=== PATIENT | male | born 1935 | race Caucasian/White ===

== ENCOUNTER 2019-10-29 15:14 | Observation (INO) | payer OTHER ==
--- NOTE | 2019-10-29 15:25 | PDOC ---
Rapid Medical Evaluation Chief Complaint: Syncope/Near Syncope Time Seen by Provider: 10/29/19 15:21 Medical Evaluation: Allergies Allergy/AdvReac Type Severity Reaction Status Date / Time No Known Allergies Allergy Verified 10/29/19 15:22 Vital Signs Temp Pulse Resp BP Pulse Ox 98 F 54 L 18 155/70 99 10/29/19 15:20 10/29/19 15:20 10/29/19 15:20 10/29/19 15:20 10/29/19 15:20 10/29/19 15:24 I have performed a brief in-person evaluation of this patient. The patient presents with a chief complaint of:syncope and hit head. Asx now. No CP Pertinent physical exam findings:stable, alert, NAD I have ordered the following:ekg/labs The patient will proceed to the ED for further evaluation. Discharge Disposition - Diagnosis Syncope Qualifiers: Syncope type: unspecified Qualified Code(s): R55 - Syncope and collapse - Referrals - Patient Instructions - Post Discharge Activity
[2019-10-29 15:47] LABS: BASO % 0.7 % (0-2.0); EOS % 1.5 % (0-4.5); HEMATOCRIT 35.2 % (35.4-49); HEMOGLOBIN 11.2 GM/dL (11.7-16.9); LYMPH % 16.8 % (8-40); MCH 26.5 pg (25.7-33.7); MCHC 31.9 g/dl (32.0-35.9); MEAN CELL VOLUME 82.9 fl (80-96); MONO % 5.3 % (3.8-10.2); NEUT % 75.7 % (42.8-82.8); PLATELET COUNT 162 K/MM3 (134-434); RBC 4.25 M/mm3 (4.00-5.60); RDW 16.4 % (11.9-15.9); WHITE BLOOD COUNT 8.4 K/mm3 (4.0-10.0)
[2019-10-29 16:31] LABS: ALBUMIN 3.8 g/dl (3.4-5.0); ALK PHOS 88 U/L (45-117); ANION GAP 7 MMOL/L (8-16); BILIRUBIN,TOTAL 0.7 mg/dL (0.2-1); BLOOD UREA NITROGEN 16.7 mg/dL (7-18); CALCIUM 9.4 mg/dL (8.5-10.1); CHLORIDE 113 mmol/L (98-107); CO2 23 mmol/L (21-32); CREATININE 1.3 mg/dL (0.55-1.3); GLUCOSE,RANDOM 110 mg/dL (74-106); SGOT/AST 10 U/L (15-37); SGPT/ALT 15 U/L (13-61); SODIUM 143 mmol/L (136-145); TOT PROT 7.1 g/dl (6.4-8.2)
[2019-10-29 16:32] LABS: EPI CELLS 19 /uL (0-25.1); HYALINE CASTS 8 /uL (0-3.1); URINE APPEARANCE CLEAR; URINE BACTERIA 126 /uL (0-1359); URINE BILIRUBIN 1+ (NEGATIVE); URINE COLOR DK YELLOW; URINE GLUCOSE (UA) NEGATIVE (NEGATIVE); URINE KETONE TRACE (NEGATIVE); URINE LEUK ESTERASE NEGATIVE (NEGATIVE); URINE NITRITE NEGATIVE (NEGATIVE); URINE PROTEIN 2+ (NEGATIVE); URINE WBC 17 /uL (0-25.8)
--- NOTE | 2019-10-29 17:00 | PDOC ---
Attending Attestation - Resident Resident Name: Mariam Cota - ED Attending Attestation I have performed the following: I have examined & evaluated the patient, The case was reviewed & discussed with the resident, I agree w/resident's findings & plan, Exceptions are as noted - HPI HPI: 10/29/19 16:57 84yo male with hx of cad s/p stent placement at [place] presents for eval of a witness syncopal episode today. Pt was standing up from his cough when he passed out and landed back on the couch. Pt did hit his head on the couch, on asa. Pt denies feeling lightheaded or dizzy. pt denies cp/sob. pt denies palpitations. Pt denies abd pain. No n/v/d. Per the daughter, pt has become more forgetful recently and did have an episode of urinary incontinence while walking outside about 2 weeks ago. Denies dysuria or hematuria. Denies all other complaints. - Physicial Exam PE: 10/29/19 16:59 Gen: aaox3, nad heart: +s1s2 reg lungs: cta b/l abd: soft, nt/nd +bs ext: no c/c/e neuro: cn ii-xii grossly intact, no focal deficits, muscle strength 5/5 UE and LE - Medical Decision Making 10/29/19 17:03 a/p: 84yo male with a witness syncopal episode at home -will send for head ct given syncope and recent forgetfulness -labs sent from [facility] reviewed, trop neg, electrolytes nonacute -ekg shows t wave inversions laterally without a prior to compare -pt with positive orthostatics, will give ivf hydration -will need obs overnight -cards is [place] -D Dr. 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 management biologist -ct head and cxr pending 10/29/19 17:33 cxr clear ua shows ketones & protein 10/29/19 17:52 case discussed with [facility] who accepts pt to service 10/29/19 18:[address] without acute findings pt will be obs to [facility] for syncope and orthostatic hypotension Heart Score/ECG Review - ECG Intrepretation Comment:: 10/29/19 17:02 sinus shaheed at 55, nl axis, nl interval, t wave inversions v4-v6, no acute st changes 10/29/19 17:03 no prior to compare Discharge - Discharge Information Problems reviewed: Yes Clinical Impression/Diagnosis: Orthostatic hypotension Syncope Qualifiers: Syncope type: unspecified Qualified Code(s): R55 - Syncope and collapse Condition: Guarded - Admission Yes - Follow up/Referral - Patient Discharge Instructions - Post Discharge Activity
[2019-10-29] MEDS ORDERED: LACTATED RINGERS SOLUTION 1000 ML INFUS.BAG IV ONE (17:01)
[2019-10-29 17:06] LABS: URINE RBC 19.9 /uL (0-23.9)
--- NOTE | 2019-10-29 17:51 | PDOC ---
History of Present Illness - General Chief Complaint: Syncope/Near Syncope Stated Complaint: SYNCOPE Time Seen by Provider: 10/29/19 15:21 - History of Present Illness Initial Comments: HPI: 84yo M with PMH of HTN, CAD s/pstent presenting after a syncopal episode. Around 2:30pm, patient was sitting watching television when he stood up and suffered a syncopal episode. This was witnessed by his home health aide who believes the p atient lost consciousness for about one minute. Patient fell back onto the couch and did not hit his head. Denies chest pain or trouble breathing. Daughter is at the bedside providing collateral history. Patient has seemed more forgetful lately and had an episoe or urinary incontinence about two weeks ago. No fevers or chills. PCP: Dr. Morillo ROS: Constitutional: no fever, no chills HEENT: no throat pain, no dysphagia Cardiovascular: no chest pain, no palpitations Respiratory: no cough, no shortness of breath Gastrointestinal: no abdominal pain, no nausea Genitourinary: no dysuria, no hematuria Musculoskeletal: no myalgia, no arthralgia Skin: no rash, no itching Neurologic: no headache, +syncope Psych: no agitation, no anxiety PE: General: Awake, alert, and fully oriented, in no acute distress Head: No signs of trauma Eyes: EOMI, sclera anicteric ENT: Moist mucus membranes Neck: Normal ROM, supple Lungs: Lungs clear, Normal breath sounds Cardio: Regular rhythm, S1 and S2 present Abdomen: Soft, nontender. No guarding, no rebound, no masses Extremities: Normal range of motion, Distal pulses present Skin: Warm, Dry, normal turgor Neurologic: Cranial nerves II through XII intact. Normal speech, sensation, strength, coordination, and gait ED Course/MDM: DDX includes but not limited to vasovagal syncope, cardiogenic syncope, metabolic syncope, neurogenic syncope, postural syncope, intoxication, seizure Labs, EKG, CXR Fluids CBC WBC 8.4 K/mm3 (4.0-10.0) 10/29/19 15:30 RBC 4.25 M/mm3 (4.00-5.60) 10/29/19 15:30 Hgb 11.2 GM/dL (11.7-16.9) L 10/29/19 15:30 Hct 35.2 % (35.4-49) L 10/29/19 15:30 MCV 82.9 fl (80-96) 10/29/19 15:30 MCH 26.5 pg (25.7-33.7) 10/29/19 15:30 MCHC 31.9 g/dl (32.0-35.9) L 10/29/19 15:30 RDW 16.4 % (11.9-15.9) H 10/29/19 15:30 Plt Count 162 K/MM3 (134-434) 10/29/19 15:30 MPV 10.0 fl (7.5-11.1) 10/29/19 15:30 Absolute Neuts (auto) 6.4 K/mm3 (1.5-8.0) 10/29/19 15:30 Neutrophils % 75.7 % (42.8-82.8) 10/29/19 15:30 Lymphocytes % 16.8 % (8-40) 10/29/19 15:30 Monocytes % 5.3 % (3.8-10.2) 10/29/19 15:30 Eosinophils % 1.5 % (0-4.5) 10/29/19 15:30 Basophils % 0.7 % (0-2.0) 10/29/19 15:30 Nucleated RBC % 0 % (0-0) 10/29/19 15:30 No leukocytosis CMP Sodium 143 mmol/L (136-145) 10/29/19 15:30 Potassium 4.0 mmol/L (3.5-5.1) 10/29/19 15:30 Chloride 113 mmol/L (98-107) H 10/29/19 15:30 Carbon Dioxide 23 mmol/L (21-32) 10/29/19 15:30 Anion Gap 7 MMOL/L (8-16) L 10/29/19 15:30 BUN 16.7 mg/dL (7-18) 10/29/19 15:30 Creatinine 1.3 mg/dL (0.55-1.3) 10/29/19 15:30 Est GFR (CKD-EPI)AfAm 58.48 10/29/19 15:30 Est GFR (CKD-EPI)NonAf 50.46 10/29/19 15:30 POC Glucometer 95 UNITS (80-120) 10/29/19 16:21 Random Glucose 110 mg/dL (74-106) H 10/29/19 15:30 Calcium 9.4 mg/dL (8.5-10.1) 10/29/19 15:30 Total Bilirubin 0.7 mg/dL (0.2-1) 10/29/19 15:30 AST 10 U/L (15-37) L 10/29/19 15:30 ALT 15 U/L (13-61) 10/29/19 15:30 Alkaline Phosphatase 88 U/L (45-117) 10/29/19 15:30 Creatine Kinase 72 U/L (26-308) 10/29/19 15:30 Troponin I < 0.02 ng/ml (0.00-0.05) 10/29/19 15:30 Total Protein 7.1 g/dl (6.4-8.2) 10/29/19 15:30 Albumin 3.8 g/dl (3.4-5.0) 10/29/19 15:30 Electrolytes unremarkable Cr normal Tpn undetectable EKG: rate 55, QTc 403, sinus bradycardia, incomplete rbbb with no prior ekgs to compare CXR as reported by radiology: "A single frontal portable projection of the chest at 5:23 PM is submitted. The heart size is enlarged. No acute infiltrates or p leural effusions are identified. There is tortuosity of the thoracic aorta and degenerative arthritis of the thoracic spine. IMPRESSION: Cardiomegaly, no acute pathology. Reported By: Jose Zaragoza MD 10/29/19 0353 " Plan for admission; observation is appropriate as patient with suspected cardiac pathology with nondiagnostic initial evaluation requiring further immediate evaluation such as monitoring, stress testing, imaging, and repeat laboratory testing to clarify diagnosis Discussed case with symphony team who accepted patient for admission under Dr. Puckett 10/29/19 17:50 CT head without acute pathology as reported by radiology: "TECHNIQUE: Sequential axial images were obtained from the base of the skull to the vertex. There is no evidence of acute intracranial hemorrhage, mass lesions or infarctions. There is a mild degree of diffuse cerebral atrophy with sulcal widening and ventricular dilatation. Hypodense changes are noted throughout the periventricular white matter consistent with chronic, small vessel ischemia. The visualized paranasal sinuses and mastoid air cells are clear. There is no evidence of fracture or acute bony pathology. IMPRESSION: No evidence of acute intracranial pathology. Reported By: Jose Zaragoza MD 10/29/19 1812 " 10/29/19 18:46 Past History - Medical History Allergies/Adverse Reactions: Allergies Allergy/AdvReac Type Severity Reaction Status Date / Time No Known Allergies Allergy Verified 10/29/19 15:22 Home Medications: Ambulatory Orders Unobtainable 10/30/19 Cardiac Disorders: Yes COPD: No HTN: Yes - Surgical History Cardiac Surgery: Yes (stent) - Psycho-Social/Smoking History Smoking History: Never smoked - Substance Abuse Hx (Audit-C & DAST Scrn) How often the patient has a drink containing alcohol: Never Score: In Men: 4 or > Positive; In Women: 3 or > Positive: 0 Screen Result (Pos requires Nsg. Audit-10AR): Negative *Physical Exam - Vital Signs Last Vital Signs Temp Pulse Resp BP Pulse Ox 98 F 54 L 18 155/70 99 10/29/19 15:20 10/29/19 15:20 10/29/19 15:20 10/29/19 15:20 10/29/19 15:20 ED Treatment Course - LABORATORY CBC & Chemistry Diagram: 10/30/19 06:53 10/30/19 06:00 - ADDITIONAL ORDERS Additional order review: Laboratory Results 10/29/19 10/29/19 10/29/19 16:21 15:50 15:30 Sodium 143 Potassium 4.0 Chloride 113 H Carbon Dioxide 23 Anion Gap 7 L BUN 16.7 Creatinine 1.3 Est GFR (CKD-EPI)AfAm 58.48 Est GFR (CKD-EPI)NonAf 50.46 POC Glucometer 95 Random Glucose 110 H Calcium 9.4 Total Bilirubin 0.7 AST 10 L ALT 15 Alkaline Phosphatase 88 Creatine Kinase 72 Troponin I < 0.02 Total Protein 7.1 Albumin 3.8 Urine Color Dk yellow Urine Appearance Clear Urine pH 5.0 Ur Specific [place] 1.027 Urine Protein 2+ H Urine Glucose (UA) Negative Urine Ketones Trace H Urine Blood Negative Urine Nitrite Negative Urine Bilirubin 1+ H Urine Urobilinogen 1.0 Ur Leukocyte Esterase Negative Urine WBC (Auto) 17 Urine RBC (Auto) 19.9 Urine Casts (Auto) 8 U Epithel Cells (Auto) 19 Urine Bacteria (Auto) 126 10/29/19 10/29/19 16:21 15:30 RBC 4.25 MCV 82.9 MCHC 31.9 L RDW 16.4 H MPV 10.0 Neutrophils % 75.7 Lymphocytes % 16.8 Monocytes % 5.3 Eosinophils % 1.5 Basophils % 0.7 POC Glucometer 95 - Medications Given in the ED: ED Medications Discontinued Medications Generic Name Dose Route Start Last Admin Trade Name Freq PRN Reason Stop Dose Admin Lactated Ringer's 500 ml 10/29/19 17:01 10/29/19 17:43 Lactated Ringers Solution IV 10/29/19 17:02 500 ml ONCE ONE Administration Discharge - Discharge Information Problems reviewed: Yes Clinical Impression/Diagnosis: Orthostatic hypotension Syncope Qualifiers: Syncope type: unspecified Qualified Code(s): R55 - Syncope and collapse Condition: Guarded - Admission Yes - Follow up/Referral - Patient Discharge Instructions - Post Discharge Activity
--- NOTE | 2019-10-29 20:48 | HP ---
CHIEF COMPLAINT: Syncope PCP: Dr. Morillo HISTORY OF PRESENT ILLNESS: 84 y.o Palauan speaking M PMHx CAD (s/p x1 stent placed several years ago at [facility]). Presenting after a witnessed syncopal episode. Per patient he was sitting down on the cough when he got up to go to the kitchen for a glass of water and became lightheaded/dizzy. He was able to grab onto the stove to support himself and walk himself back to the couch. Per the home health aid who witnessed the episode "he fell back into the couch and was unconscious ~1 minute". As per the daughter he has had 1 episode of urinary incontinence in the past where he wet himself during a walk and also got lost during a walk around their old neighborhood. Patient stated he feels well has no complaints of dizziness, lightheadedness, N/V/D, chest pain. Orthostatics in the ED were negative. No recent travel, sick contacts, recent procedures. Supine: BP 196/87 Pulse 63 Seated: BP 194/86 Pulse 67 Standing: BP 190/88 Pulse 65 Sales Architect # [id number] ER course was notable for: (1) 500mL of LR (2) EKG (3) CXR, Head CT Recent Travel: None PAST MEDICAL HISTORY: CAD PAST SURGICAL HISTORY: x1 Stent placed at [facility] Social History: Smokin cigarette a day Alcohol: None Drugs: None Allergies No Known Allergies Allergy (Verified 10/29/19 15:22) HOME MEDICATIONS: REVIEW OF SYSTEMS CONSTITUTIONAL: Absent: fever, chills, diaphoresis, generalized weakness, malaise, loss of appetite, weight change HEENT: Absent: rhinorrhea, nasal congestion, throat pain, throat swelling, difficulty swallowing, mouth swelling, ear pain, eye pain, visual changes CARDIOVASCULAR: syncope, lightheadedness Absent: chest pain, palpitations, irregular heart rate, peripheral edema RESPIRATORY: Absent: cough, shortness of breath, dyspnea with exertion, orthopnea, wheezing, stridor, hemoptysis GASTROINTESTINAL: Absent: abdominal pain, abdominal distension, nausea, vomiting, diarrhea, constipation, melena, hematochezia GENITOURINARY: Absent: dysuria, frequency, urgency, hesitancy, hematuria, flank pain, genital pain MUSCULOSKELETAL: Absent: myalgia, arthralgia, joint swelling, back pain, neck pain SKIN: Absent: rash, itching, pallor HEMATOLOGIC/IMMUNOLOGIC: Absent: easy bleeding, easy bruising, lymphadenopathy, frequent infections ENDOCRINE: Absent: unexplained weight gain, unexplained weight loss, heat intolerance, cold intolerance NEUROLOGIC: Absent: headache, focal weakness or paresthesias, dizziness, unsteady gait, seizure, mental status changes, bladder or bowel incontinence PSYCHIATRIC: Absent: anxiety, depression, suicidal or homicidal ideation, hallucinations. PHYSICAL EXAMINATION Vital Signs - 24 hr 10/29/19 10/29/19 10/29/19 15:15 15:20 18:50 Temperature 98 F Pulse Rate 54 L Pulse Rate [ Left Radial] Pulse Rate [ 53 L Sitting] Pulse Rate [ 51 L Standing] Pulse Rate [ 55 L Supine] Respiratory 18 18 Rate Blood Pressure 155/70 Blood Pressure [Left Arm] Blood Pressure 166/74 [Sitting] Blood Pressure 178/75 H [Standing] Blood Pressure 178/75 H [Supine] O2 Sat by Pulse 99 Oximetry (%) 10/29/19 19:20 Temperature Pulse Rate Pulse Rate [ 53 L Left Radial] Pulse Rate [ Sitting] Pulse Rate [ Standing] Pulse Rate [ Supine] Respiratory 18 Rate Blood Pressure Blood Pressure 110/74 [Left Arm] Blood Pressure [Sitting] Blood Pressure [Standing] Blood Pressure [Supine] O2 Sat by Pulse 98 Oximetry (%) GENERAL: Awake, alert, and fully oriented, in no acute distress. HEAD: Normal with no signs of trauma. EYES: Pupils equal, round and reactive to light, extraocular movements intact, sclera anicteric, conjunctiva clear. EARS, NOSE, THROAT: Oropharynx clear without exudates. Moist mucous membranes. NECK: No JVD, or masses. LUNGS: Breath sounds equal, clear to auscultation bilaterally. No wheezes, and no crackles. No accessory muscle use. HEART: Regular rate and rhythm, normal S1 and S2 without murmur, rub or gallop. ABDOMEN: Soft, nontender, not distended, normoactive bowel sounds, no guarding, no rebound, no masses. MUSCULOSKELETAL: Normal range of motion at all joints. No bony deformities or R midline back tenderness. No CVA tenderness. UPPER EXTREMITIES: 2+ pulses, warm, well-perfused. No peripheral edema. LOWER EXTREMITIES: 2+ pulses, warm, well-perfused. No calf tenderness. No peripheral edema. NEUROLOGICAL: Cranial nerves II-XII intact. Normal speech. Normal gait. PSYCHIATRIC: Cooperative. Good eye contact. Appropriate mood and affect. SKIN: Warm, dry, normal turgor, no rashes or lesions noted. Laboratory Results - last 24 hr 10/29/19 10/29/19 10/29/19 15:30 15:30 15:50 WBC 8.4 RBC 4.25 Hgb 11.2 L Hct 35.2 L MCV 82.9 MCH 26.5 MCHC 31.9 L RDW 16.4 H Plt Count 162 MPV 10.0 Absolute Neuts (auto) 6.4 Neutrophils % 75.7 Lymphocytes % 16.8 Monocytes % 5.3 Eosinophils % 1.5 Basophils % 0.7 Nucleated RBC % 0 Sodium 143 Potassium 4.0 Chloride 113 H Carbon Dioxide 23 Anion Gap 7 L BUN 16.7 Creatinine 1.3 Est GFR (CKD-EPI)AfAm 58.48 Est GFR (CKD-EPI)NonAf 50.46 POC Glucometer Random Glucose 110 H Calcium 9.4 Total Bilirubin 0.7 AST 10 L ALT 15 Alkaline Phosphatase 88 Creatine Kinase 72 Troponin I < 0.02 Total Protein 7.1 Albumin 3.8 Urine Color Dk yellow Urine Appearance Clear Urine pH 5.0 Ur Specific [place] 1.027 Urine Protein 2+ H Urine Glucose (UA) Negative Urine Ketones Trace H Urine Blood Negative Urine Nitrite Negative Urine Bilirubin 1+ H Urine Urobilinogen 1.0 Ur Leukocyte Esterase Negative Urine WBC (Auto) 17 Urine RBC (Auto) 19.9 Urine Casts (Auto) 8 U Epithel Cells (Auto) 19 Urine Bacteria (Auto) 126 10/29/19 16:21 WBC RBC Hgb Hct MCV MCH MCHC RDW Plt Count MPV Absolute Neuts (auto) Neutrophils % Lymphocytes % Monocytes % Eosinophils % Basophils % Nucleated RBC % Sodium Potassium Chloride Carbon Dioxide Anion Gap BUN Creatinine Est GFR (CKD-EPI)AfAm Est GFR (CKD-EPI)NonAf POC Glucometer 95 Random Glucose Calcium Total Bilirubin AST ALT Alkaline Phosphatase Creatine Kinase Troponin I Total Protein Albumin Urine Color Urine Appearance Urine pH Ur Specific [place] Urine Protein Urine Glucose (UA) Urine Ketones Urine Blood Urine Nitrite Urine Bilirubin Urine Urobilinogen Ur Leukocyte Esterase Urine WBC (Auto) Urine RBC (Auto) Urine Casts (Auto) U Epithel Cells (Auto) Urine Bacteria (Auto) ASSESSMENT/PLAN: 84 y.o [place]an speaking M PMHx CAD (s/p x1 stent). Presenting after a witnessed syncopal episode. # Syncope - ddx Vasovagal vs. cardiogenic vs. symptomatic bradycardia/dehydration - Tele admission - Repeat orthostatics - Echo - Carotid US # Bradycardia - Trend troponin - Hold beta blockers - CPK - Folic acid level - TSH - B12 # HTN Urgency - BP 196/87 - Norvasc 10mg PO stat - Home BP meds - Cardiology consult (Dr. Steele) # Anemia - Hgb 11.2, Hct 35.2 - FOBT - Iron-TIBC profile # Covid r/o - Covid PCR Ordered - PCR ordered due to geographic location of pandemic - Placed in isolation precautions # FEN - NS @ 75mL/hr - Sodium controlled diet # DVT Prophylaxis - Lovenox 40mg SQ # Dispo - Admit to tele; Will continue to monitor vitals and labs Visit type - Medication Review Med list reviewed for High Risk Meds patients 65 and older: Yes - Emergency Visit Emergency Visit: Yes ED Registration Date: 10/29/19 Care time: The patient presented to the Emergency Department on the above date and was hospitalized for further evaluation of their emergent condition. - New Patient This patient is new to me today: Yes Date on this admission: 10/30/19 - Critical Care Critical Care patient: No ATTENDING PHYSICIAN STATEMENT I saw and evaluated the patient. I reviewed the resident's note and discussed the case with the resident. I agree with the resident's findings and plan as documented. SUBJECTIVE: OBJECTIVE: ASSESSMENT AND PLAN:
--- NOTE | 2019-10-29 21:47 | PN ---
Teaching Attending Note Name of Resident: [place] ATTENDING PHYSICIAN STATEMENT I saw and evaluated the patient. I reviewed the resident's note and discussed the case with the resident. I agree with the resident's findings and plan as documented. SUBJECTIVE: 84 years old M with PMH of HTN, CAD s/p stent presented to hospital with syncopal episode. He was feeling dizzy and lost consciousness when he stood up from sitting position. LOC was witnessed by HOISTING LABORER. Duration was aprox ? 1 min. He denied chest pain, SOB, nausea, vomiting, fever. No seizure like activity. He was bradycardic in ED HR 5d OBJECTIVE: Last Vital Signs Temp Pulse Resp BP Pulse Ox 98 F 53 L 18 110/74 98 10/29/19 15:20 10/29/19 19:20 10/29/19 19:20 10/29/19 19:20 10/29/19 19:20 GENERAL: Normal built, not in acute distress HEAD: No signs of trauma, normocephalic, atraumatic EYES: PERRLA, EOMI, sclera anicteric, conjunctiva clear ENT: Hearing grossly normal, nares patent, oropharynx clear without exudates. No uvular deviation. Moist mucosa NECK: Normal ROM, supple, no lymphadenopathy, JVD, or yumiko LUNGS: No distress, speaks in full sentences, clear to auscultation bilaterally HEART: Bradycardic, normal S1 and S2, peripheral pulses normal and equal bilaterally ABDOMEN: Soft, nontender, normoactive bowel sounds. No guarding, no rebound. No yumiko EXTREMITIES: Normal inspection, Normal range of motion, no edema. No clubbing or cyanosis_ NEUROLOGICAL: Cranial nerves II through XII grossly intact. Normal speech, normal gait, no focal neurologic deficit SKIN: Warm, Dry, normal turgor, no rashes or lesions noted Labs, imaging studies, EKG reviewed ASSESSMENT AND PLAN: Syncope DDx incuded bradycardia _medication BB induced, vs vasovagal r/o cardiogenic Uncontrolled HTN Normocytic anemia Hx of HTN cad S/P stent observation to tele Serial cardiac enzymes, EKG gentle hydration ECHO TSH, 12, mg,phos, cpk carotid doppler confirm home meds - resume if no contraindication Hold BB if he is on HTN - uncontrolled. gibe Norvasc 10 mg now orthostatic vital signs - negative DVT ppx Rest of the plan as resident note dictated by me
[2019-10-29] MEDS ORDERED: amLODIPine BESYLATE 10 MG TABLET (FP) PO ONE (22:14)
[2019-10-29] MEDS ORDERED: SODIUM CHLORIDE 1,000 ML IV SCH (22:15)
[2019-10-29] MEDS ORDERED: amLODIPine BESYLATE 5 MG TABLET (FP) ONE (22:59)
[2019-10-30 07:20] LABS: BASO % 0.7 % (0-2.0); EOS % 2.7 % (0-4.5); HEMATOCRIT 37.5 % (35.4-49); HEMOGLOBIN 11.9 GM/dL (11.7-16.9); LYMPH % 26.3 % (8-40); MCH 25.9 pg (25.7-33.7); MCHC 31.7 g/dl (32.0-35.9); MEAN CELL VOLUME 81.8 fl (80-96); MEAN PLT VOLUME 9.7 fl (7.5-11.1); MONO % 7.2 % (3.8-10.2); NEUT % 63.1 % (42.8-82.8); PLATELET COUNT 171 K/MM3 (134-434); RBC 4.59 M/mm3 (4.00-5.60); RDW 16.1 % (11.9-15.9); WHITE BLOOD COUNT 6.6 K/mm3 (4.0-10.0)
[2019-10-30 07:52] LABS: ALBUMIN 3.9 g/dl (3.4-5.0); ALK PHOS 93 U/L (45-117); ANION GAP 7 MMOL/L (8-16); BILIRUBIN,TOTAL 0.9 mg/dL (0.2-1); BLOOD UREA NITROGEN 11.7 mg/dL (7-18); CALCIUM 9.3 mg/dL (8.5-10.1); CHLORIDE 110 mmol/L (98-107); CO2 26 mmol/L (21-32); CREATININE 0.9 mg/dL (0.55-1.3); GLUCOSE,RANDOM 96 mg/dL (74-106); IRON SERUM 43 ug/dL (50-175); MAGNESIUM 2.2 mg/dL (1.8-2.4); PHOSPHOROUS 2.1 mg/dL (2.5-4.9); POTASSIUM 3.6 mmol/L (3.5-5.1); SGOT/AST 11 U/L (15-37); SGPT/ALT 16 U/L (13-61); SODIUM 142 mmol/L (136-145); TOT PROT 7.4 g/dl (6.4-8.2); TOTAL IRON BINDING CAPACITY 332 ug/dL (250-450)
[2019-10-30] MEDS ORDERED: LISINOPRIL 5 MG TABLET (FP) PO ONE (07:52)
[2019-10-30] MEDS ORDERED: LISINOPRIL 5 MG TABLET (FP) ONE (08:58)
[2019-10-30] MEDS ORDERED: LISINOPRIL 20 MG TABLET (FP) PO ONE ×2 (10:25→11:16)
[2019-10-30] MEDS: amLODIPine BESYLATE 5 MG TABLET (FP) PO SCH (10:52)
[2019-10-30] MEDS: ENOXAPARIN NA (PORCINE) 40 MG/0.4 ML DISP.SYRIN SQ SCH (10:52)
--- NOTE | 2019-10-30 11:48 | CON.CARD ---
Consult Consult Specialty:: Cardiology Referred by:: Hospitalist Reason for Consultation:: Bradycardia, syncope - History of Present Illness Chief Complaint: syncope History of Present Illness: 84 year old man with pmh HTN, HLD, CAD reported stent years ago at [place] unknown details, admitted with an episode of syncope. As per report pt was sitting then stood up to walk to the kitchen when he became lightheaded. he then walked back to the couch supporting himself and as per his PRINCIPAL DATABASE DEVELOPER report he then fell back onto the couch with LOC for 1 minute. As per family he has prior episodes of getting lost while out walking and urinar y incontinence. Pt was seen and examined today in [facility]. Pt denies any complaints. Denies any chest pain, sob, palpitations, lightheadedness, dizziness. Noted to be bradycardic in 50s while in ED and to have uncontrolled HTN on admission. - History Source History Provided By: Patient, Medical Record Limitations to Obtaining History: Language Barrier - Past Medical History Cardio/Vascular: Yes: CAD, HTN, Hyperlipdemia - Smoking History Smoking history: Never smoked Home Medications - Allergies Allergies/Adverse Reactions: Allergies Allergy/AdvReac Type Severity Reaction Status Date / Time No Known Allergies Allergy Verified 10/29/19 15:22 - Home Medications Home Medications: Ambulatory Orders Lisinopril [Prinivil -] 40 mg PO DAILY 10/30/19 Metoprolol Tartrate [Lopressor -] 50 mg PO BID 10/30/19 Family Medical History Family History: Denies Review of Systems - Review of Systems Constitutional: reports: Weakness. denies: No Symptoms, Chills, Diaphoresis, Fever, Lethargy, Loss of Appetite, Malaise, Night Sweats, Unintentional Wgt. Loss, Other Eyes: denies: No Symptoms, Blind Spots, Blurred Vision, Double Vision, Eye Pain, Floaters, Photophobia, Recent Change in Vision, Other HENT: denies: No Symptoms, Difficult Swallowing, Ear Discharge, Ear Pain, Epistaxis, Gingival Bleeding, Hearing Loss, Mouth Swelling, Nasal Congestion, Ocular Prosthesis, Throat Pain, Toothache, Ringing in Ears, Other Neck: denies: No Symptoms, Decreased ROM, Lumps, Pain on Movement, Stiffness, Swollen Glands, Tenderness, Other Cardiovascular: denies: No Symptoms, Chest Pain, Edema, Palpitations, Shortness of Breath, Other Respiratory: denies: No Symptoms, Cough, Exercise Intolerance, Hemoptysis, Orthopnea, PND, Snoring, SOB, SOB on Exertion, Wheezing, Other Gastrointestinal: denies: No Symptoms, Abdominal Pain, Bloating, Constipation, Diarrhea, Dysphagia, Indigestion, Melena, Nausea, Rectal Bleeding, Vomiting, Vomiting Blood, Other Genitourinary: denies: No Symptoms, Burning, Discharge, Dysuria, Flank Pain, Frequency, Hematuria, Incontinence, Lesions, Menses, Pain, Testicular Mass, Testicular Pain, Testicular Swelling, Urgency, Vaginal Bleeding, Other Breasts: denies: See HPI, Breast Implants, Discharge from Nipple, Lumps, Pain, Skin Changes, Other Musculoskeletal: denies: No Symptoms, Back Pain, Crepitus, Decreased ROM, Extremity Pain, Joint Pain, Joint Swelling, Muscle Pain, Muscle Cramps, Muscle Weakness, Other Integumentary: denies: No Symptoms, Blister, Bruising, Change in Color, Eczema, Erythema, Incision, Lesions, Lump, Pallor, Pruritis, Rash, Wound, Other Neurological: reports: Syncope. denies: No Symptoms, Change in LOC, Change in Speech, Confusion, Dizziness, Headache, Incoordination, Numbness, Parasthesia, Pre-Existing Deficit, Seizure, Tremors, Unsteady Gait, Weakness, Other Endocrine: denies: No Symptoms, Excessive Sweating, Flushing, Increased Hunger, Increased Thirst, Intolerance to Cold, Intolerance to Heat, Unexplained Weight Gain, Unexplained Weight Loss, Other Hematology/Lymphatic: denies: No Symptoms, Easily Bruised, Excessive Bleeding, Swollen Glands, Other Psychiatric: denies: No Symptoms, Altered Sleep Pattern, Anxiety, Depression, Hallucinations, Panic, Paranoia, Suicidal, Other - Risk Factors Known Risk Factors: Yes: Age, Hypercholesterolemia, Hypertension Vital Signs: Vital Signs Temperature 98 F 10/30/19 10:35 Pulse Rate 62 10/30/19 10:35 Respiratory Rate 18 10/30/19 10:35 Blood Pressure 205/98 H 10/30/19 10:35 O2 Sat by Pulse Oximetry (%) 96 10/30/19 10:35 Constitutional: Yes: No Distress, Calm Eyes: Yes: Conjunctiva Clear, EOM Intact HENT: Yes: Atraumatic, Normocephalic Neck: Yes: Supple, Trachea Midline Respiratory: Yes: Regular, CTA Bilaterally Gastrointestinal: Yes: Normal Bowel Sounds, Soft. No: Distention, Tenderness Cardiovascular: Yes: Regular Rate and Rhythm. No: Bradycardia, Tachycardia, Pulse Irregular, Gallop, Rub, Varicosities JVD: No Carotid Bruit: No PMI: Non-Displaced Heart Sounds: Yes: S1, S2. No: Split S2, S3, S4, Clicks, Gallop, Rub, Bruit Murmur: Yes: Systolic Murmur, Grade 2 Extremities: Yes: WNL Edema: No Peripheral Pulses WNL: Yes Peripheral Pulses: 2+ Left Doralis Pedis, 2+ Right Dorsalis Pedis Neurological: Yes: Alert, Oriented Psychiatric: Yes: Alert, Oriented - Other Data Labs, Other Data: CBC, BMP 10/30/19 06:53 10/30/19 06:00 Troponin, BNP 10/29/19 10/30/19 15:30 06:00 Troponin I < 0.02 < 0.02 Troponin, BNP 10/29/19 10/30/19 15:30 06:00 Troponin I < 0.02 < 0.02 nsr 75bpm, incomplete RBBB, nsst Imaging - Results Chest X-ray: Report Reviewed, Image Reviewed EKG: Report Reviewed, Image Reviewed Other: Report Reviewed, Image Reviewed (tele-nsr/sinus shaheed with apcs) Assessment/Plan 84 year old man with pmh HTN, HLD, CAD reported stent years ago at [place] unknown details, admitted with an episode of syncope. As per report pt was sitting then stood up to walk to the kitchen when he became lightheaded. he then walked back to the couch supporting himself and as per his [employer]INCIPAL DATABASE DEVELOPER report he then fell back onto the couch with LOC for 1 minute. As per family he has prior episodes of getting lost while out walking and urinary incontinence. Pt was seen and examined today in [facility]. Pt denies any complaints. Denies any chest pain, sob, palpitations, lightheadedness, dizziness. Noted to be bradycardic in 50s while in ED and to have uncontrolled HTN on admission. Bradycardia -mild sinus bradycardia -unlikely responsible for syncope -hold AV fe blockers -check TFTs -monitor tele Syncope-uncertain etiology -unlikely arrhythmia -Head CT showed no acute event -carotid doppler mild atherosclerosis -orthostatic reportedly normal in ED -would repeat orthostatic BP HTN-uncontrolled -resumed Lisinopril and started amlodipine -holding metoprolol for bradycardia -if HTN remains uncontrolled can add HCTZ or change amlodipine to nifedipine CAD-reported stent years ago, unknown details -current admission not c/w ACS -no reported chest pain or sob -cardiac enzymes wnl -no ischemia on ECG
--- NOTE | 2019-10-30 12:09 | EKG ---
Test Reason : Blood Pressure : / mmHG Vent. Rate : 075 BPM Atrial Rate : 075 BPM P-R Int : 198 ms QRS Dur : 106 ms QT Int : 392 ms P-R-T Axes : 036 -42 021 degrees QTc Int : 437 ms NORMAL SINUS RHYTHM LEFT AXIS DEVIATION INCOMPLETE RIGHT BUNDLE BRANCH BLOCK NONSPECIFIC ST ABNORMALITY ABNORMAL ECG WHEN COMPARED WITH ECG OF 29-OCT-2019 15:27, PREMATURE ATRIAL COMPLEXES ARE NO LONGER PRESENT NON-SPECIFIC CHANGE IN ST SEGMENT IN ANTERIOR LEADS T WAVE INVERSION NO LONGER EVIDENT IN LATERAL LEADS Confirmed by CHRISTOPHER HARRISON MD ([id number]) on 10/30/2019 12:09:38 PM Referred By: Confirmed By:CHRISTOPHER HARRISON MD
--- NOTE | 2019-10-30 12:11 | EKG ---
Test Reason : Blood Pressure : / mmHG Vent. Rate : 055 BPM Atrial Rate : 055 BPM P-R Int : 198 ms QRS Dur : 112 ms QT Int : 422 ms P-R-T Axes : 038 -22 -32 degrees QTc Int : 403 ms SINUS BRADYCARDIA WITH PREMATURE ATRIAL COMPLEXES INCOMPLETE RIGHT BUNDLE BRANCH BLOCK T WAVE ABNORMALITY, CONSIDER LATERAL ISCHEMIA ABNORMAL ECG NO PREVIOUS ECGS AVAILABLE Confirmed by CHRISTOPHER HARRISON MD ([id number]) on 10/30/2019 12:11:50 PM Referred By: Confirmed By:CHRISTOPHER HARRISON MD
--- NOTE | 2019-10-30 12:22 | PN ---
Teaching Attending Note Name of Resident: Farida Lycnh ATTENDING PHYSICIAN STATEMENT I saw and evaluated the patient. I reviewed the resident's note and discussed the case with the resident. I agree with the resident's findings and plan as documented. SUBJECTIVE: pt seen and examined, denies complains, pleasant OBJECTIVE: Last Vital Signs Temp Pulse Resp BP Pulse Ox 98 F 62 18 205/98 H 96 10/30/19 10:35 10/30/19 10:35 10/30/19 10:35 10/30/19 10:35 10/30/19 10:35 GENERAL: Awake, alert, and fully oriented, in no acute distress. HEAD: Normal with no signs of trauma. EYES: Pupils equal, round and reactive to light, sclera anicteric, conjunctiva clear. LUNGS: Breath sounds equal, clear to auscultation bilaterally. No wheezes, and no crackles. No accessory muscle use. HEART: Regular rate and rhythm, normal S1 and S2 ABDOMEN: Soft, nontender, not distended MUSCULOSKELETAL: Normal range of motion at all joints. No bony deformities or tenderness. No CVA tenderness. UPPER EXTREMITIES: 2+ pulses, warm, well-perfused. No cyanosis. No clubbing. No peripheral edema. LOWER EXTREMITIES: 2+ pulses, warm, well-perfused. No calf tenderness. No peripheral edema. NEUROLOGICAL: Cranial nerves II-XII intact. Normal speech. CBCD WBC 6.6 K/mm3 (4.0-10.0) 10/30/19 06:53 RBC 4.59 M/mm3 (4.00-5.60) 10/30/19 06:53 Hgb 11.9 GM/dL (11.7-16.9) 10/30/19 06:53 Hct 37.5 % (35.4-49) 10/30/19 06:53 MCV 81.8 fl (80-96) 10/30/19 06:53 MCHC 31.7 g/dl (32.0-35.9) L 10/30/19 06:53 RDW 16.1 % (11.9-15.9) H 10/30/19 06:53 Plt Count 171 K/MM3 (134-434) 10/30/19 06:53 MPV 9.7 fl (7.5-11.1) 10/30/19 06:53 CMP Sodium 142 mmol/L (136-145) 10/30/19 06:00 Potassium 3.6 mmol/L (3.5-5.1) 10/30/19 06:00 Chloride 110 mmol/L (98-107) H 10/30/19 06:00 Carbon Dioxide 26 mmol/L (21-32) 10/30/19 06:00 Anion Gap 7 MMOL/L (8-16) L 10/30/19 06:00 BUN 11.7 mg/dL (7-18) 10/30/19 06:00 Creatinine 0.9 mg/dL (0.55-1.3) 10/30/19 06:00 Calcium 9.3 mg/dL (8.5-10.1) 10/30/19 06:00 Total Bilirubin 0.9 mg/dL (0.2-1) 10/30/19 06:00 AST 11 U/L (15-37) L 10/30/19 06:00 ALT 16 U/L (13-61) 10/30/19 06:00 Alkaline Phosphatase 93 U/L (45-117) 10/30/19 06:00 Total Protein 7.4 g/dl (6.4-8.2) 10/30/19 06:00 Albumin 3.9 g/dl (3.4-5.0) 10/30/19 06:00 ASSESSMENT AND PLAN: 84 years old M with PMH of uncontrolled HTN, CAD s/p stent presented to hospital with near-syncopal episode. stated he felt dizzy, leaned against the fridge, and sat down, no LOC, called EMS and arrived to ED # near syncope - pt stated he took meds, but didn't eat whole day - CT head no acute changes, EKG sinus shaheed, LVH, partial RBBB - hold BB for now, c/w lisinopril, nor - BP 170s/80s - panel monitor, tele - negative orthostatics - TSH, carotid doppler - PT eval - fall precautions DVT prophylaxis
[2019-10-30 12:49] VITALS: BMI 33.1
--- NOTE | 2019-10-30 12:54 | ECHO ---
Name: ROBERTHLFOR Exam:Adult Echocardiogram Study Date: 10/30/2019 09:32 AM Age: 84 yrs Reason For Study: SYNCOPE MMode/2D Measurements & Calculations IVSd: 1.2 cm Ao root diam: 3.7 cm LVIDd: 4.8 cm LVIDs: 3.4 cm LVPWd: 1.8 cm LVPWs: 1.9 cm EDV(Teich): 105.1 ml ESV(Teich): 46.5 ml LVOT diam: 2.2 cm LAV (MOD-bp): 104.0 ml RV S Marquis: 13.9 cm/sec Doppler Measurements & Calculations MV E max marquis: 69.6 cm/sec Ao V2 max: 192.4 cm/sec MV A max marquis: 95.8 cm/sec Ao max P.8 mmHg MV E/A: 0.73 Ao V2 mean: 114.8 cm/sec MV dec time: 0.19 sec Ao mean P.4 mmHg Ao V2 VTI: 31.1 cm AI P1/2t: 657.7 msec AI max marquis: 464.2 cm/sec PA V2 max: 104.7 cm/sec AI max P.3 mmHg PA max P.4 mmHg AI dec slope: 206.7 cm/sec2 Med Peak E' Marquis: 5.2 cm/sec Med E/e': 13.5 Lat Peak E' Marquis: 5.6 cm/sec Lat E/e': 12.4 Procedure A complete two-dimensional transthoracic echocardiogram was performed (2D, M-mode, Doppler and color flow Doppler). Left Ventricle The left ventricular size, thickness and function are normal. Ejection Fraction = 60-65%. The left ve ntricular wall motion is normal. Right Ventricle The right ventricle is normal in size and function. Atria Normal left and right atrial size and function. Mitral Valve There is no mitral regurgitation noted. Tricuspid Valve No tricuspid regurgitation. There was insufficient TR detected to calculate RV systolic pressure. Aortic Valve No hemodynamically significant valvular aortic stenosis. Trace to mild aortic regurgitation. Pulmonic Valve There is no pulmonic valvular regurgitation. Great Vessels The aortic root is normal size. Pericardium/Pleura There is no pericardial effusion. Interpretation Summary The left ventricular size, thickness and function are normal The right ventricle is normal in size and function. Trace to mild aortic regurgitation. MD Mark Herrera 10/30/2019 12:54 PM
[2019-10-30] MEDS ORDERED: POTASSIUM PHOSPHATE 30 MM in SODIUM CHLORIDE 500 ML IVPB ONE (15:03)
--- NOTE | 2019-10-30 15:16 | PN ---
Physical Exam: SUBJECTIVE:Patient seen and examined at bedside this morning. He doesn't report any symptoms at this time, including dizziness, SOB, CP or palpitations. Patient reported he felt dizzy yesterday with room spinning around him and just feeling unwell, and then collapsed by the refrigerator. He denies any loss of consciousness or head trauma, but CHEMICAL WEIGHER reported otherwise. Patient reported his home health aide called 911 and he was subsequently brought to the hospital. OBJECTIVE: Vital Signs Temperature 98.2 F 10/30/19 14:00 Pulse Rate 83 10/30/19 14:00 Respiratory Rate 18 10/30/19 14:00 Blood Pressure 134/80 10/30/19 14:00 O2 Sat by Pulse Oximetry (%) 96 10/30/19 12:35 GENERAL: The patient is awake, alert, and fully oriented, in no acute distress. HEAD: Normal with no signs of trauma. NECK: Trachea midline, full range of motion, supple. LUNGS: Breath sounds equal, clear to auscultation bilaterally HEART: Regular rate and rhythm, S1, S2 ABDOMEN: Soft, nontender, nondistended, normoactive bowel sounds EXTREMITIES: 2+ pulses, warm, well-perfused, no edema. NEUROLOGICAL: Cranial nerves II through XII grossly intact. Normal speech, normal gait PSYCH: Normal mood, normal affect. SKIN: Warm, dry, normal turgor Laboratory Results - last 24 hr 10/29/19 10/29/19 10/29/19 15:30 15:30 15:50 WBC 8.4 RBC 4.25 Hgb 11.2 L Hct 35.2 L MCV 82.9 MCH 26.5 MCHC 31.9 L RDW 16.4 H Plt Count 162 MPV 10.0 Absolute Neuts (auto) 6.4 Neutrophils % 75.7 Lymphocytes % 16.8 Monocytes % 5.3 Eosinophils % 1.5 Basophils % 0.7 Nucleated RBC % 0 Sodium 143 Potassium 4.0 Chloride 113 H Carbon Dioxide 23 Anion Gap 7 L BUN 16.7 Creatinine 1.3 Est GFR (CKD-EPI)AfAm 58.48 Est GFR (CKD-EPI)NonAf 50.46 POC Glucometer Random Glucose 110 H Hemoglobin A1c % Calcium 9.4 Phosphorus Magnesium Iron TIBC Iron Saturation Unsaturated IBC Ferritin Total Bilirubin 0.7 AST 10 L ALT 15 Alkaline Phosphatase 88 Creatine Kinase 72 Troponin I < 0.02 Total Protein 7.1 Albumin 3.8 Vitamin B12 Serum Folate TSH Urine Color Dk yellow Urine Appearance Clear Urine pH 5.0 Ur Specific [place] 1.027 Urine Protein 2+ H Urine Glucose (UA) Negative Urine Ketones Trace H Urine Blood Negative Urine Nitrite Negative Urine Bilirubin 1+ H Urine Urobilinogen 1.0 Ur Leukocyte Esterase Negative Urine WBC (Auto) 17 Urine RBC (Auto) 19.9 Urine Casts (Auto) 8 U Epithel Cells (Auto) 19 Urine Bacteria (Auto) 126 COVID-19 (JUAN C) 10/29/19 10/29/19 10/30/19 16:21 17:30 06:00 WBC RBC Hgb Hct MCV MCH MCHC RDW Plt Count MPV Absolute Neuts (auto) Neutrophils % Lymphocytes % Monocytes % Eosinophils % Basophils % Nucleated RBC % Sodium 142 Potassium 3.6 Chloride 110 H Carbon Dioxide 26 Anion Gap 7 L BUN 11.7 Creatinine 0.9 Est GFR (CKD-EPI)AfAm 91.22 Est GFR (CKD-EPI)NonAf 78.71 POC Glucometer 95 Random Glucose 96 Hemoglobin A1c % Calcium 9.3 Phosphorus 2.1 L Magnesium 2.2 Iron 43 L TIBC 332 Iron Saturation 12 L Unsaturated IBC 289 H Ferritin 12.7 Total Bilirubin 0.9 AST 11 L ALT 16 Alkaline Phosphatase 93 Creatine Kinase 112 Troponin I < 0.02 Total Protein 7.4 Albumin 3.9 Vitamin B12 376 Serum Folate 23 H TSH 2.01 Urine Color Urine Appearance Urine pH Ur Specific [place] Urine Protein Urine Glucose (UA) Urine Ketones Urine Blood Urine Nitrite Urine Bilirubin Urine Urobilinogen Ur Leukocyte Esterase Urine WBC (Auto) Urine RBC (Auto) Urine Casts (Auto) U Epithel Cells (Auto) Urine Bacteria (Auto) COVID-19 (JUAN C) Not detected 10/30/19 10/30/19 06:53 06:53 WBC 6.6 RBC 4.59 Hgb 11.9 Hct 37.5 MCV 81.8 MCH 25.9 MCHC 31.7 L RDW 16.1 H Plt Count 171 MPV 9.7 Absolute Neuts (auto) 4.2 Neutrophils % 63.1 Lymphocytes % 26.3 D Monocytes % 7.2 Eosinophils % 2.7 Basophils % 0.7 Nucleated RBC % 0 Sodium Potassium Chloride Carbon Dioxide Anion Gap BUN Creatinine Est GFR (CKD-EPI)AfAm Est GFR (CKD-EPI)NonAf POC Glucometer Random Glucose Hemoglobin A1c % 6.4 H Calcium Phosphorus Magnesium Iron TIBC Iron Saturation Unsaturated IBC Ferritin Total Bilirubin AST ALT Alkaline Phosphatase Creatine Kinase Troponin I Total Protein Albumin Vitamin B12 Serum Folate TSH Urine Color Urine Appearance Urine pH Ur Specific [place] Urine Protein Urine Glucose (UA) Urine Ketones Urine Blood Urine Nitrite Urine Bilirubin Urine Urobilinogen Ur Leukocyte Esterase Urine WBC (Auto) Urine RBC (Auto) Urine Casts (Auto) U Epithel Cells (Auto) Urine Bacteria (Auto) COVID-19 (JUAN C) Active Medications Generic Name Dose Route Start Last Admin Trade Name Sebq PRN Reason Stop Dose Admin Amlodipine Besylate 10 mg 10/30/19 10:00 10/30/19 10:52 Norvasc - PO 10 mg DAILY BRIGIDA Administration Enoxaparin Sodium 40 mg 10/30/19 10:00 10/30/19 10:52 Lovenox - SQ 40 mg DAILY BRIGIDA Administration Potassium Phosphate 30 mm/ 260 mls @ 62.5 mls/hr 10/30/19 15:03 Sodium Chloride IVPB 10/30/19 19:12 ONCE ONE Lisinopril 40 mg 10/31/19 10:00 Prinivil PO DAILY BRIGIDA ASSESSMENT/PLAN: Patient is a 84 year old male with PMH of HTN, CAD s/p stent presented to ED with syncopal episode. He was noted to be bradycardic at the ED. #Syncope -unclear etiology at this time -CT Head - no acute changes -Carotid doppler - mild atherosclerosis with no stenosis -EKG - NSR with RBBB, nonspecific ST abnormalities, normal qt interval, prior PACs and t-wave inversions noted on previous EKGs -Orthostatics negative -Troponin I neg x2, CK, TSH wnl -Echo : LV normal/RV normal, mild AR -tele monitoring -hold AV fe blockers in light of bradycardia (as noted on previous OP visits) -Cardiology (Dr. Steele) consulted. Recommendations appreciated #HTN, uncontrolled -Continue home dose Lisinopril 40mg daily -Add Amlodipine 10mg daily -will hold Lopressor 50mg bid for bradycardia -Closely monitoring blood pressure. -HCTZ or subsititution of amlodipine for nifedipine if BP remains uncontrolled. -Cardio recs appreciated. #FEN -Not on any standing fluids -Routine monitoring of electrolytes during hospital stay -Sodium controlled diet #DVT prophylaxis -Lovenox 40 mg daily #Disposition -tele obs Visit type - Emergency Visit Emergency Visit: Yes ED Registration Date: 10/30/19 Care time: The patient presented to the Emergency Department on the above date and was hospitalized for further evaluation of their emergent condition. - New Patient This patient is new to me today: Yes Date on this admission: 10/30/19 - Critical Care Critical Care patient: No - Medication Review Med list reviewed for High Risk Meds patients 65 and older: Yes ATTENDING PHYSICIAN STATEMENT I saw and evaluated the patient. I reviewed the resident's note and discussed the case with the resident. I agree with the resident's findings and plan as documented. SUBJECTIVE: OBJECTIVE: ASSESSMENT AND PLAN:
[2019-10-31 01:49] VITALS: TEMP 98.2
[2019-10-31 05:42] LABS: BASO % 0.8 % (0-2.0); EOS % 3.3 % (0-4.5); HEMATOCRIT 37.5 % (35.4-49); HEMOGLOBIN 11.9 GM/dL (11.7-16.9); LYMPH % 29.1 % (8-40); MCH 25.9 pg (25.7-33.7); MCHC 31.8 g/dl (32.0-35.9); MEAN CELL VOLUME 81.5 fl (80-96); MEAN PLT VOLUME 9.6 fl (7.5-11.1); MONO % 8.7 % (3.8-10.2); NEUT % 58.1 % (42.8-82.8); PLATELET COUNT 158 K/MM3 (134-434); RDW 16.6 % (11.9-15.9); WHITE BLOOD COUNT 6.4 K/mm3 (4.0-10.0)
[2019-10-31 06:08] LABS: ALBUMIN 3.6 g/dl (3.4-5.0); BILIRUBIN,TOTAL 0.6 mg/dL (0.2-1); BLOOD UREA NITROGEN 12.6 mg/dL (7-18); CALCIUM 9.2 mg/dL (8.5-10.1); CREATININE 0.9 mg/dL (0.55-1.3); MAGNESIUM 2.2 mg/dL (1.8-2.4); PHOSPHOROUS 4.1 mg/dL (2.5-4.9); POTASSIUM 3.9 mmol/L (3.5-5.1); TOT PROT 6.8 g/dl (6.4-8.2)
[2019-10-31 07:06] VITALS: BP 165/90
[2019-10-31] MEDS: ENOXAPARIN NA (PORCINE) 40 MG/0.4 ML DISP.SYRIN SQ SCH (09:27)
[2019-10-31] MEDS: amLODIPine BESYLATE 5 MG TABLET (FP) PO SCH (09:27)
[2019-10-31] MEDS ORDERED: LISINOPRIL 10 MG TABLET (FP) PO SCH (10:00)
[2019-10-31] MEDS ORDERED: LISINOPRIL 20 MG TABLET (FP) PO SCH (10:00)
--- NOTE | 2019-10-31 11:38 | PN ---
Teaching Attending Note Name of Resident: Farida Lynch ATTENDING PHYSICIAN STATEMENT I saw and evaluated the patient. I reviewed the resident's note and discussed the case with the resident. I agree with the resident's findings and plan as documented. SUBJECTIVE: pt seen and examined at bedside, denies complains OBJECTIVE: Last Vital Signs Temp Pulse Resp BP Pulse Ox 98.2 F 59 L 20 165/90 96 10/31/19 01:00 10/31/19 08:32 10/31/19 08:32 10/31/19 08:32 10/31/19 08:32 GENERAL: Awake, alert, and fully oriented, in no acute distress. HEAD: Normal with no signs of trauma. EYES: Pupils equal, round and reactive to light, sclera anicteric, conjunctiva clear. LUNGS: Breath sounds equal, clear to auscultation bilaterally. No wheezes, and no crackles. No accessory muscle use. HEART: Regular rate and rhythm, normal S1 and S2 ABDOMEN: Soft, nontender, not distended MUSCULOSKELETAL: Normal range of motion at all joints. No bony deformities or tenderness. No CVA tenderness. UPPER EXTREMITIES: 2+ pulses, warm, well-perfused. No cyanosis. No clubbing. No peripheral edema. LOWER EXTREMITIES: 2+ pulses, warm, well-perfused. No calf tenderness. No peripheral edema. NEUROLOGICAL: Cranial nerves II-XII intact. Normal speech. CBCD WBC 6.4 K/mm3 (4.0-10.0) 10/31/19 05:20 RBC 4.60 M/mm3 (4.00-5.60) 10/31/19 05:20 Hgb 11.9 GM/dL (11.7-16.9) 10/31/19 05:20 Hct 37.5 % (35.4-49) 10/31/19 05:20 MCV 81.5 fl (80-96) 10/31/19 05:20 MCHC 31.8 g/dl (32.0-35.9) L 10/31/19 05:20 RDW 16.6 % (11.9-15.9) H 10/31/19 05:20 Plt Count 158 K/MM3 (134-434) 10/31/19 05:20 MPV 9.6 fl (7.5-11.1) 10/31/19 05:20 CMP Sodium 141 mmol/L (136-145) 10/31/19 05:20 Potassium 3.9 mmol/L (3.5-5.1) 10/31/19 05:20 Chloride 108 mmol/L (98-107) H 10/31/19 05:20 Carbon Dioxide 24 mmol/L (21-32) 10/31/19 05:20 Anion Gap 9 MMOL/L (8-16) 10/31/19 05:20 BUN 12.6 mg/dL (7-18) 10/31/19 05:20 Creatinine 0.9 mg/dL (0.55-1.3) 10/31/19 05:20 Calcium 9.2 mg/dL (8.5-10.1) 10/31/19 05:20 Total Bilirubin 0.6 mg/dL (0.2-1) 10/31/19 05:20 AST 15 U/L (15-37) 10/31/19 05:20 ALT 14 U/L (13-61) 10/31/19 05:20 Alkaline Phosphatase 86 U/L (45-117) 10/31/19 05:20 Total Protein 6.8 g/dl (6.4-8.2) 10/31/19 05:20 Albumin 3.6 g/dl (3.4-5.0) 10/31/19 05:20 ASSESSMENT AND PLAN: 84 years old M with PMH of uncontrolled HTN, CAD s/p stent presented to hospital with near-syncopal episode. stated he felt dizzy, leaned against the fridge, and sat down, no LOC, called EMS and arrived to ED # near syncope - CT head no acute changes, EKG , ECHO noted - hold BB for now, c/w lisinopril and add amlodipine - irrigation flume layer, showing no events in last 24h - negative orthostatics - ECHO, carotid doppler noted - DASH diet, medication complaint advised - will discharge for outpatient f/u with primary doctor
--- NOTE | 2019-10-31 11:57 | PN ---
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, Physician History of Present Illness: seen and examined today in [facility]. no overnight events. no new complaints. - Current Medication List Current Medications: Active Medications Amlodipine Besylate (Norvasc -) 10 mg PO DAILY [facility] Last Admin: 10/31/19 09:27 Dose: 10 mg Documented by: Enoxaparin Sodium (Lovenox -) 40 mg SQ DAILY [facility] Last Admin: 10/31/19 09:27 Dose: 40 mg Documented by: Lisinopril (Prinivil) 40 mg PO DAILY [facility] Last Admin: 10/31/19 09:27 Dose: 40 mg Documented by: - Objective Vital Signs: Vital Signs Temperature 98.2 F 10/31/19 01:00 Pulse Rate 59 L 10/31/19 08:32 Respiratory Rate 20 10/31/19 08:32 Blood Pressure 165/90 10/31/19 08:32 O2 Sat by Pulse Oximetry (%) 96 10/31/19 08:32 Constitutional: Yes: No Distress, Calm Eyes: Yes: Conjunctiva Clear, EOM Intact HENT: Yes: Atraumatic, Normocephalic Neck: Yes: Supple, Trachea Midline Cardiovascular: Yes: Regular Rate and Rhythm, S1, S2. No: Bradycardia, Tachycardia, Pulse Irregular, Bruit, JVD, Gallop, Murmur, Rub, S3, S4, Varicosities Respiratory: Yes: Regular, CTA Bilaterally. No: Rales, Rhonchi, Wheezes Gastrointestinal: Yes: Normal Bowel Sounds, Soft. No: Distention, Tenderness Musculoskeletal: Yes: WNL Extremities: Yes: WNL Edema: No Peripheral Pulses WNL: Yes Peripheral Pulses: Left Doralis Pedis: 2+, Right Dorsalis Pedis: 2+ Neurological: Yes: Alert, Oriented Psychiatric: Yes: Alert, Oriented Labs: CBC, BMP 10/31/19 05:20 10/31/19 05:20 - ....Imaging Chest X-ray: Report Reviewed, Image Reviewed EKG: Report Reviewed, Image Reviewed Other: Report Reviewed, Image Reviewed (tele-nsr, sinus shaheed, pvcs, vent couplets) Assessment/Plan 84 year old man with pmh HTN, HLD, CAD reported stent years ago at [facility] unknown details, admitted with an episode of syncope. As per report pt was sitting then stood up to walk to the kitchen when he became lightheaded. he then walked back to the couch supporting himself and as per his [employer] report he then fell back onto the couch with LOC for 1 minute. As per family he has prior episodes of getting lost while out walking and uri nary incontinence. Denies any chest pain, sob, palpitations, lightheadedness, dizziness. Noted to be bradycardic in 50s while in ED and to have uncontrolled HTN on admission. Bradycardia -mild sinus bradycardia -unlikely responsible for syncope -keep off AV fe blockers, can be reconsidered as outpatient -TSH wnl Syncope-uncertain etiology -unlikely arrhythmia -Head CT showed no acute event -carotid doppler mild atherosclerosis -orthostatic reportedly normal in ED -would repeat orthostatic BP -echo showed normal LV/RV, mild AR HTN-uncontrolled on admission -improved, still above shelter goal -cont Lisinopril and started amlodipine -hold metoprolol for bradycardia -outpatient fup CAD-reported stent years ago, unknown details -current admission not c/w ACS -no reported chest pain or sob -cardiac enzymes wnl -no ischemia on ECG No additional inpatient cardiac work up needed at this time. [facility] outpatient fup. will see as needed. please call with any additional questions.
--- NOTE | 2019-10-31 12:00 | DS ---
Physical Exam: SUBJECTIVE: Patient seen and examined. No acute events overnight. OBJECTIVE: Vital Signs Temperature 98.2 F 10/31/19 01:00 Pulse Rate 59 L 10/31/19 08:32 Respiratory Rate 20 10/31/19 08:32 Blood Pressure 165/90 10/31/19 08:32 O2 Sat by Pulse Oximetry (%) 96 10/31/19 08:32 PHYSICAL EXAM GENERAL: The patient is awake, alert, and fully oriented, in no acute distress. HEAD: Normal with no signs of trauma. NECK: Trachea midline, full range of motion, supple. LUNGS: Breath sounds equal, clear to auscultation bilaterally HEART: Regular rate and rhythm, S1, S2 ABDOMEN: Soft, nontender, nondistended, normoactive bowel sounds EXTREMITIES: 2+ pulses, warm, well-perfused, no edema. NEUROLOGICAL: Cranial nerves II through XII grossly intact. Normal speech, normal gait PSYCH: Normal mood, normal affect. SKIN: Warm, dry, normal turgor LABS Laboratory Results - last 24 hr 10/29/19 10/30/19 10/31/19 17:30 06:00 05:20 WBC RBC Hgb Hct MCV MCH MCHC RDW Plt Count MPV Absolute Neuts (auto) Neutrophils % Lymphocytes % Monocytes % Eosinophils % Basophils % Nucleated RBC % Sodium 142 141 Potassium 3.6 3.9 Chloride 110 H 108 H Carbon Dioxide 26 24 Anion Gap 7 L 9 BUN 11.7 12.6 Creatinine 0.9 0.9 Est GFR (CKD-EPI)AfAm 91.22 91.22 Est GFR (CKD-EPI)NonAf 78.71 78.71 Random Glucose 96 102 Calcium 9.3 9.2 Phosphorus 2.1 L 4.1 Magnesium 2.2 2.2 Iron 43 L TIBC 332 Iron Saturation 12 L Unsaturated IBC 289 H Ferritin 12.7 Total Bilirubin 0.9 0.6 AST 11 L 15 ALT 16 14 Alkaline Phosphatase 93 86 Creatine Kinase 112 Troponin I < 0.02 Total Protein 7.4 6.8 Albumin 3.9 3.6 Triglycerides 101 Cholesterol 180 Total LDL Cholesterol 122 H HDL Cholesterol 33 L Vitamin B12 376 Serum Folate 23 H TSH 2.01 COVID-19 (JUAN C) Not detected 10/31/19 05:20 WBC 6.4 RBC 4.60 Hgb 11.9 Hct 37.5 MCV 81.5 MCH 25.9 MCHC 31.8 L RDW 16.6 H Plt Count 158 MPV 9.6 Absolute Neuts (auto) 3.7 Neutrophils % 58.1 Lymphocytes % 29.1 Monocytes % 8.7 Eosinophils % 3.3 Basophils % 0.8 Nucleated RBC % 0 Sodium Potassium Chloride Carbon Dioxide Anion Gap BUN Creatinine Est GFR (CKD-EPI)AfAm Est GFR (CKD-EPI)NonAf Random Glucose Calcium Phosphorus Magnesium Iron TIBC Iron Saturation Unsaturated IBC Ferritin Total Bilirubin AST ALT Alkaline Phosphatase Creatine Kinase Troponin I Total Protein Albumin Triglycerides Cholesterol Total LDL Cholesterol HDL Cholesterol Vitamin B12 Serum Folate TSH COVID-19 (JUAN C) HOSPITAL COURSE: Date of Admission:10/30/19 Date of Discharge: 10/31/19 Patient is a 84 year old male with PMH of HTN, CAD s/p stent presented to ED with near syncopal episode. He was noted to be bradycardic at the ED. Head CT revealed no acute pathology. Carotid doppler with mild atherosclerosis with no stenosis. Orthostatics negative, EKG similar from previous outpatient visits. Patient was seen by cardiology. Metoprolol recommended to be discontinued due to bradycardia, and switched to Amlodipine for hypertension. Patient was monitored on tele overnight with no events. Patient was discharged with instructions to follow up with PCP and cardiology. Minutes to complete discharge: 35 Discharge Summary Problems reviewed: Yes Reason For Visit: SYNCOPE Current Active Problems Orthostatic hypotension (Acute) Syncope (Acute) Condition: Improved - Instructions Diet, Activity, Other Instructions: Your visit You were admitted to the hospital because you had dizziness. You were noted to have low heart rate at the emergency and very high blood pressure. Your heart was monitored overnight and you were evaluated by the pencil sorter. Please take note of the following changes to your medications and take them as prescribed. Medications Please take note of the following changes to your medications: 1. Start Amlodipine 10mg once a day. 2. Please STOP taking Metoprolol. 3. Continue taking Lisinopril 40mg daily. Follow up Please follow up with your primary care doctor (Dr. Morillo) within 1 week. Additional info Please all 911 or go to the ED if with any worsening fevers, chills, headache, dizziness, chest pain, shortness of breath, belly pain or any new concerns noted. Referrals: Mukesh Morillo MD [Primary Care Provider] - 1 Week Gabriel Eddy MD [Staff Physician] - Disposition: VNS/HOME HEALTH CARE - Home Medications Comprehensive Discharge Medication List: Ambulatory Orders Amlodipine Besylate [Norvasc -] 10 mg PO DAILY #30 tablet 10/31/19 Lisinopril [Prinivil -] 40 mg PO DAILY #30 tablet 10/31/19 This patient is new to me today: No Emergency Visit: Yes ED Registration Date: 10/30/19 Care time: The patient presented to the Emergency Department on the above date and was hospitalized for further evaluation of their emergent condition. Critical Care patient: No - Discharge Referral Referred to [facility] Med P.C.: No ATTENDING PHYSICIAN STATEMENT I saw and evaluated the patient. I reviewed the resident's note and discussed the case with the resident. I agree with the resident's findings and plan as documented. SUBJECTIVE: OBJECTIVE: ASSESSMENT AND PLAN:
[2019-10-31 15:04] VITALS: PULSE 68
== END 2019-10-31 16:18 | disposition home or self-care (01) ==
LOC: JER 15:14 → INTOOBSV 18:18 → UNDOADMOB 18:18 → JERBED 18:18 → J4W 10-30 10:19 → JERBED 10-30 10:52
PROVIDERS: ADMIT Internal Medicine; ATTEND Student in an Organized Health Care Education/Training Program
PROC: 3E023GC Introduction of Other Therapeutic Substance into Muscle, Percutaneous Approach (ICD-10-PCS; principal; 2019-10-30)
PROC: 3E033GC Introduction of Other Therapeutic Substance into Peripheral Vein, Percutaneous Approach (ICD-10-PCS; 2019-10-30)
PROC: 3E0337Z Introduction of Electrolytic and Water Balance Substance into Peripheral Vein, Percutaneous Approach (ICD-10-PCS; 2019-10-30)
DX: I10 Essential (primary) hypertension (principal); I95.1 Orthostatic hypotension; Z95.5 Presence of coronary angioplasty implant and graft; R00.1 Bradycardia, unspecified; Z29.9 Encounter for prophylactic measures, unspecified; E66.9 Obesity, unspecified; Z68.33 Body mass index [BMI] 33.0-33.9, adult
CPT/HCPCS: 36415; 70450-TC; 71045-TC-FY; 80053; 80061; 81003; 82306; 82550; 82607; 82728; 82746; 82962; 83036; 83540; 83550; 83721; 83735; 84100; 84443; 84484; 85025; 93005; 93010; 93306-TC; 93880-TC; 96360; 96365; 96372; 96375; 97116-GP; 97161-GP; 99285-25; G0378; U0003

== ENCOUNTER 2019-12-22 13:44 | Inpatient (IN) | payer OTHER ==
[2019-12-22 13:52] VITALS: BMI 29.9
--- NOTE | 2019-12-22 13:52 | PDOC ---
Rapid Medical Evaluation Time Seen by Provider: 12/22/19 13:45 Medical Evaluation: Allergies Allergy/AdvReac Type Severity Reaction Status Date / Time No Known Allergies Allergy Verified 12/22/19 13:45 12/22/19 13:48 I performed a brief in-person evaluation of this patient. Pt is an 84 y/o male who presents with daughter for confusion for the last 2 days. The man has not had anything to eat or drink for two days. He began to choke on steak yesterday and daughter had to do the heimlich on him. He states he feels like he has something stuck in his throat. He has been unable to tolerate fluids since last night. He possibly had a syncopal episode last night and could have stayed on the floor all night. Pt has a h/o HTN. Pertinent physical exam findings: clear lungs, no stridor, speaking in full sentences I have ordered the following: labs, ekg, cxr Patient to proceed to ED for further evaluation. Discharge Disposition - Diagnosis Choking sensation - Referrals - Patient Instructions - Post Discharge Activity
--- NOTE | 2019-12-22 15:04 | PDOC ---
History of Present Illness - General Chief Complaint: Nausea/Vomiting Stated Complaint: NAUSEA/VOMITING Time Seen by Provider: 12/22/19 13:45 - History of Present Illness Initial Comments: HPI The pt is a 84 y/o male with PMH of HTN and CAD s/p stent placement who presents to the ED BIBA from [facility] with multiple complaints: vomiting, increased confusion over last several months, and an episode of syncope. Per daughter, pt went to see her father yesterday and found him desheveled, unshowered, ad having not eaten for the last two days. Daughter helped him clean up and took him out for dinner where the pt choked on a piece of steak for which the daughter performed the Heimlich maneuver. Since then the pt has not been able to tolerate anything by mouth; he reports that it feels like something is stuck in his throat. Every time he eats or drinks, he immediately vomits. Daughter dropped off pt at his apartment at the [facility] last evening. This morning the pt's aide found the pt on the ground. Pt reports passing out but is unsure what time exactly (possibly last night). Denies fevers, chill, weakness, change in vision, cough, CP, SOB, nausea, diarrhea, constipation, dizziness, dysuria, frequency, or headache. 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 Pt recently started smoking again after quitting 27 years ago. PMHX: as in HPI PSHX: as in HPI Meds: Home Medications Medication Instructions Recorded Amlodipine Besylate [Norvasc -] 10 mg PO DAILY #30 tablet 10/31/19 Lisinopril [Prinivil -] 40 mg PO DAILY #30 tablet 10/31/19 Allergies: nkda Tob: at least 30 pack year history of smoking; quit smoking 27 years ago; started occasionally smoking again Etoh: denies Rec drugs: denies PCP: Dr. Ilia GREGG GENERAL/CONSTITUTIONAL: No fever or chills. No weakness. HEAD, EYES, EARS, NOSE AND THROAT: No change in vision. No ear pain or discharge. No sore throat. Sensation of something feeling stuck CARDIOVASCULAR: No chest pain or shortness of breath. RESPIRATORY: No cough, wheezing, or hemoptysis. GASTROINTESTINAL: No nausea, diarrhea or constipation. + vomiting GENITOURINARY: No dysuria, frequency, or change in urination. MUSCULOSKELETAL: No joint or muscle swelling or pain. No neck or back pain. SKIN: No rash NEUROLOGIC: No headache, vertigo, loss of consciousness, or change in strength/s ensation. ENDOCRINE: No increased thirst. No abnormal weight change HEMATOLOGIC/LYMPHATIC: No anemia, easy bleeding, or history of blood clots. ALLERGIC/IMMUNOLOGIC: No hives or skin allergy. PE GENERAL: Awake, alert, and fully oriented, in no acute distress HEAD: No signs of trauma, normocephalic, atraumatic EYES: PERRLA, EOMI, sclera anicteric, conjunctiva clear ENT: Auricles normal inspection, hearing grossly normal, nares patent, oropharynx clear without exudates. Moist mucosa NECK: Normal ROM, supple, no lymphadenopathy, JVD, or masses LUNGS: No distress, speaks full sentences, clear to auscultation bilaterally HEART: Regular rate and rhythm, normal S1 and S2, no murmurs, rubs or gallops, peripheral pulses normal and equal bilaterally. ABDOMEN: Soft, nontender, normoactive bowel sounds. No guarding, no rebound. No masses EXTREMITIES : Normal inspection, Normal range of motion, no edema. No clubbing or cyanosis. NEUROLOGICAL: Cranial nerves II through XII grossly intact. Normal speech, normal gait, no focal sensorimotor deficits SKIN: Warm, Dry, normal turgor, no rashes or lesions noted 12/22/19 15:23 Past History - Medical History Allergies/Adverse Reactions: Allergies Allergy/AdvReac Type Severity Reaction Status Date / Time No Known Allergies Allergy Verified 12/22/19 13:45 Home Medications: Ambulatory Orders Amlodipine Besylate [Norvasc -] 10 mg PO DAILY #30 tablet 10/31/19 Lisinopril [Prinivil -] 40 mg PO DAILY #30 tablet 10/31/19 Cardiac Disorders: Yes COPD: No HTN: Yes - Surgical History Cardiac Surgery: Yes (stent) - Psycho-Social/Smoking History Smoking History: Current every day smoker Have you smoked in the past 12 months: Yes Number of Cigarettes Smoked Daily: 3 Information on smoking cessation initiated: Yes - Substance Abuse Hx (Audit-C & DAST Scrn) How often the patient has a drink containing alcohol: Never Score: In Men: 4 or > Positive; In Women: 3 or > Positive: 0 Screen Result (Pos requires Nsg. Audit-10AR): Negative In the last yr the pt used illegal drug/Rx for NonMed reason: No Score: Yes response is considered Positive: 0 Screen Result (Positive result requires Nsg. DAST-10): Negative *Physical Exam - Vital Signs Last Vital Signs Temp Pulse Resp BP Pulse Ox 98.1 F 80 18 114/84 100 12/22/19 13:46 12/22/19 13:46 12/22/19 13:46 12/22/19 13:46 12/22/19 13:46 ED Treatment Course - LABORATORY CBC & Chemistry Diagram: 12/22/19 14:50 12/22/19 19:20 Medical Decision Making - Medical Decision Making MDM The pt is a 84 y/o male with PMH of HTN and CAD s/p stent placement who presents to the ED [facility] from [facility] with multiple complaints: vomiting, increased confusion over last several months, and an episode of syncope. DDX including but not limited to: confusion x several months (dementia vs delirium; will r/o CVA or other neurological pathology; will r/o other organic abnormalities), possible episode of syncope (orthostatic, cardiogenic, vasovagal). W/U: - CBC, CMP, coags, UA/UCx - EKG - CXR - CT head without contrast - CT soft tissue neck and chest to eval for possible foreign object TX: - IVF 12/22/19 15:59 K 5.8 but hemolyzed; will repeat bmp UA 1+ protein, trace ketones 12/22/19 16:39 CT head with no acute intracranial pathology 12/22/19 18:04 Discharge - Discharge Information Problems reviewed: Yes Clinical Impression/Diagnosis: Choking sensation Syncope Qualifiers: Syncope type: unspecified Qualified Code(s): R55 - Syncope and collapse Vomiting Qualifiers: Vomiting type: unspecified Vomiting Intractability: unspecified Nausea presence: without nausea Qualified Code(s): R11.11 - Vomiting without nausea Condition: Good - Admission Yes - Follow up/Referral - Patient Discharge Instructions - Post Discharge Activity
[2019-12-22 15:19] LABS: BASO % 1.2 % (0-2.0); EOS % 0.8 % (0-4.5); HEMATOCRIT 40.8 % (35.4-49); HEMOGLOBIN 12.9 GM/dL (11.7-16.9); LYMPH % 20.4 % (8-40); MCH 26.1 pg (25.7-33.7); MCHC 31.6 g/dl (32.0-35.9); MEAN CELL VOLUME 82.6 fl (80-96); MONO % 5.2 % (3.8-10.2); NEUT % 72.4 % (42.8-82.8); PLATELET COUNT 213 K/MM3 (134-434); RBC 4.94 M/mm3 (4.00-5.60); RDW 16.8 % (11.9-15.9)
[2019-12-22 15:27] LABS: INR 1.17 (0.83-1.09); PROTHROMBIN TIME (PATIENT) 13.8 SEC (9.7-13.0)
[2019-12-22] MEDS ORDERED: SODIUM CHLORIDE 500 ML IV STA (16:05)
[2019-12-22 16:07] LABS: ALBUMIN 4.1 g/dl (3.4-5.0); ALK PHOS 110 U/L (45-117); ANION GAP 5 MMOL/L (8-16); BLOOD UREA NITROGEN 13.7 mg/dL (7-18); CALCIUM 9.7 mg/dL (8.5-10.1); CHLORIDE 109 mmol/L (98-107); CO2 24 mmol/L (21-32); CREATININE 1.2 mg/dL (0.55-1.3); GLUCOSE,RANDOM 98 mg/dL (74-106); POTASSIUM 5.8 mmol/L (3.5-5.1); SGOT/AST 54 U/L (15-37); SGPT/ALT 21 U/L (13-61); SODIUM 138 mmol/L (136-145)
[2019-12-22 16:07] LABS: EPI CELLS 10 /uL (0-25.1); HYALINE CASTS 3 /uL (0-3.1); URINE APPEARANCE CLEAR; URINE BACTERIA 35 /uL (0-1359); URINE BILIRUBIN NEGATIVE (NEGATIVE); URINE COLOR DK YELLOW; URINE GLUCOSE (UA) NEGATIVE (NEGATIVE); URINE KETONE TRACE (NEGATIVE); URINE LEUK ESTERASE NEGATIVE (NEGATIVE); URINE NITRITE NEGATIVE (NEGATIVE); URINE PROTEIN 1+ (NEGATIVE); URINE WBC 17 /uL (0-25.8)
[2019-12-22 16:12] LABS: URINE RBC 23.7 /uL (0-23.9)
--- NOTE | 2019-12-22 19:31 | PDOC ---
*Physical Exam - Vital Signs Last Vital Signs Temp Pulse Resp BP Pulse Ox 98.1 F 80 18 114/84 100 12/22/19 13:46 12/22/19 13:46 12/22/19 13:46 12/22/19 13:46 12/22/19 13:46 ED Treatment Course - LABORATORY CBC & Chemistry Diagram: 12/22/19 14:50 12/22/19 19:20 - ADDITIONAL ORDERS Additional order review: Laboratory Results 12/22/19 12/22/19 12/22/19 15:35 15:34 14:50 PT with INR INR PTT (Actin FS) Sodium Potassium Chloride Carbon Dioxide Anion Gap BUN Creatinine Est GFR (CKD-EPI)AfAm Est GFR (CKD-EPI)NonAf Random Glucose Calcium Total Bilirubin AST ALT Alkaline Phosphatase Creatine Kinase Creatine Kinase Index CK-MB (CK-2) Troponin I Total Protein Albumin Urine Color Dk yellow Urine Appearance Clear Urine pH 5.0 Ur Specific [place] 1.030 Urine Protein 1+ H Urine Glucose (UA) Negative Urine Ketones Trace H Urine Blood Negative Urine Nitrite Negative Urine Bilirubin Negative Urine Urobilinogen 1.0 Ur Leukocyte Esterase Negative Urine WBC (Auto) 17 Urine RBC (Auto) 23.7 Urine Casts (Auto) 3 U Epithel Cells (Auto) 10 Urine Bacteria (Auto) 35 Anti-A Titer Cancelled Blood Type O POSITIVE Cancelled Antibody Screen Cancelled 12/22/19 12/22/19 14:50 14:50 PT with INR 13.80 H INR 1.17 H PTT (Actin FS) 29.0 Sodium 138 Potassium 5.8 H Chloride 109 H Carbon Dioxide 24 Anion Gap 5 L BUN 13.7 Creatinine 1.2 Est GFR (CKD-EPI)AfAm 64.42 Est GFR (CKD-EPI)NonAf 55.58 Random Glucose 98 Calcium 9.7 Total Bilirubin 1.0 AST 54 H ALT 21 Alkaline Phosphatase 110 Creatine Kinase 228 Creatine Kinase Index No Result Required. CK-MB (CK-2) < 1.0 Troponin I < 0.02 Total Protein 8.0 Albumin 4.1 Urine Color Urine Appearance Urine pH Ur Specific [place] Urine Protein Urine Glucose (UA) Urine Ketones Urine Blood Urine Nitrite Urine Bilirubin Urine Urobilinogen Ur Leukocyte Esterase Urine WBC (Auto) Urine RBC (Auto) Urine Casts (Auto) U Epithel Cells (Auto) Urine Bacteria (Auto) Anti-A Titer Blood Type Antibody Screen 12/22/19 14:50 RBC 4.94 MCV 82.6 MCHC 31.6 L RDW 16.8 H MPV 10.0 Neutrophils % 72.4 D Lymphocytes % 20.4 D Monocytes % 5.2 Eosinophils % 0.8 Basophils % 1.2 - Medications Given in the ED: ED Medications Discontinued Medications Generic Name Dose Route Start Last Admin Trade Name Sebq PRN Reason Stop Dose Admin Sodium Chloride 500 mls @ 500 mls/hr 12/22/19 16:05 12/22/19 16:25 Normal Saline - IV 12/22/19 17:04 500 mls/hr ASDIR STA Administration Medical Decision Making - Medical Decision Making 12/22/19 19:28 Patient received as signout. The pt is a 84 y/o male with PMH of HTN and CAD s/p stent placement who presents to the ED BIBA for a syncopal episode that occurred this morning. Per daughter, Daughter dropped off pt at his apartment at the [facility] [place] last evening. This morning the pt's aide found the pt on the ground. Pt reports passing out but is unsure what time exactly (possibly last night). Additionally, daughter took pt to dinner last night where he apparently choked on his steak and the daughter had to give him the heimlich maneuver. Pt has been unable to keep down solid or liquids without immediately vomiting per daughter. Plan to admit for syncope pending CT reads and repeat K which was 5.8 but hemolyzed. 12/22/19 19:29 CT head: Impression: No significant interval change or CT evidence of acute intracranial pathology is identified. Correlate clinically to determine further evaluation and follow-up CT neck: Impression: See discussion above. The airway is patent and symmetric. No extraluminal air or gross radiopaque foreign body is identified. Correlate clinically for further evaluation. 2 adjacent nodular densities in the right parotid gland versus a larger nodular density suggestive of intraparotid lymph nodes. Differential diagnosis includes a pleomorphic adenoma for which a nonemergent ENT consultation is suggested. CT scan of the chest without intravenous contrast Impression: Mild COPD/emphysematous changes. Tiny bilateral pleural-based nodules measuring up to 4 mm which are nonspecific. No focal infiltrates are identified. The previous versus a tiny polyp along the right lateral wall of the trachea, just above the level of the keenan measuring 5 mm. 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 Mild cardiomegaly and minimal pericardial effusion. Large bilateral renal cysts, as described above. Scattered diverticula in included portion of the colon without evidence of acute diverticulitis. 12/22/19 19:31 12/22/19 19:34 - Repeat K was 4.0 - Patient admitted to [facility] for syncope workup Discharge - Discharge Information Problems reviewed: Yes Clinical Impression/Diagnosis: Choking sensation Syncope Qualifiers: Syncope type: unspecified Qualified Code(s): R55 - Syncope and collapse Vomiting Qualifiers: Vomiting type: unspecified Vomiting Intractability: unspecified Nausea presence: without nausea Qualified Code(s): R11.11 - Vomiting without nausea Condition: Good - Admission Yes - Follow up/Referral - Patient Discharge Instructions - Post Discharge Activity
[2019-12-22 20:14] LABS: BLOOD UREA NITROGEN 14.1 mg/dL (7-18); CALCIUM 9.3 mg/dL (8.5-10.1)
--- NOTE | 2019-12-22 20:34 | PN ---
Teaching Attending Note Name of Resident: Jerrica Cabrera ATTENDING PHYSICIAN STATEMENT I saw and evaluated the patient. I reviewed the resident's note and discussed the case with the resident. I agree with the resident's findings and plan as documented. SUBJECTIVE: Patient is an 84 year old man with a PMH of HTN, Tobacco use and CAD (s/p stent placement at [facility]) who presents to the ER brought in from [facility] for confusion for 2 days. Per daughter the patient had a syncopal episode yesterday night. Daughter states she went to visit him yesterday and the patient seemed more confused than normal and he had not showered or eaten in 2 days. Daughter states the patient has been talking to his friend who several years ago. Daughter reports she was at dinner with the patient yesterday and he choked on steak. Patient states since then he has had a sensation that something is stuck in his throat and every time he eats he immediately vomits. Health aide found patient on ground this morning. Patient reports passing out but does not know when. Complaining of headache. Patient den ies shortness of breath, abdominal pain, palpitations, dizziness, fever, chills, diarrhea, constipation, dysuria, frequency, urgency, melena, hematochezia or hematuria. Denies alcohol, tobacco or illicit drug use. No sick contacts or recent travels. Family history is unremarkable. OBJECTIVE: Alert and not orthostatic Vital Signs Period Temp Pulse Resp BP Sys/Marcos Pulse Ox Last 24 Hr 98.1 F 78-80 18-18 114-124/77-84 100-100 HEENT: No Jaundice, eye redness or discharge, PERRLA, EOMI. Normocephalic, atraumatic. External ears are normal and hearing is grossly intact. No nasal discharge. Neck: Supple, nontender. No palpable adenopathy or thyromegaly. No JVD Chest: Good effort. Clear to auscultation and percussion. Heart: Regular. No S3, rub or murmur Abdomen: Not distended, soft, nontender and no HSM. No rebound or guarding. Normal bowel sounds. Ext: Peripheral pulses intact. No leg edema. Skin: Warm and dry. No petechiae, rash or ecchymosis. Neuro: Alert. Oriented to person and place. CN 2-12 grossly intact. Sensation grossly intact in all four extremities and DTR are symmetric. Psych: Appropriate mood and affect. Good insight. Home Medications Medication Instructions Recorded Amlodipine Besylate [Norvasc -] 10 mg PO DAILY #30 tablet 10/31/19 Lisinopril [Prinivil -] 40 mg PO DAILY #30 tablet 10/31/19 Abnormal Lab Results 12/22/19 12/22/19 12/22/19 14:50 14:50 14:50 MCHC 31.6 L RDW 16.8 H PT with INR 13.80 H INR 1.17 H Potassium 5.8 H Chloride 109 H Anion Gap 5 L AST 54 H Urine Protein Urine Ketones 12/22/19 12/22/19 15:35 19:20 MCHC RDW PT with INR INR Potassium Chloride 113 H Anion Gap 7 L AST Urine Protein 1+ H Urine Ketones Trace H Current Medications Generic Name Dose Route Start Last Admin Trade Name Freq PRN Reason Stop Dose Admin Enoxaparin Sodium 40 mg 12/23/19 10:00 Lovenox - SQ DAILY [facility] Sodium Chloride 1,000 mls @ 50 mls/hr 12/22/19 23:45 12/23/19 00:03 Normal Saline - IV 12/23/19 19:44 50 mls/hr ASDIR BRIGIDA Administration ASSESSMENT AND PLAN: 1. Syncope/?Dysphagia - Etiology unclear. No evidence of acute intracranial pathology on noncontrast head CT scan. CT neck soft tissue and CT chest didnot show any acute abnormality or evidence of foreign body. Will consult GI for sensation of food stuck in [place]. CXR shows cardiomegaly, unfolded aorta with no evidence of acute lung disease. EKG shows sinus bradycardia at 46/minute, PACs and QTc 385 with anterior infarct of undetermined age. Bradycardia is new, but patient does not know whether he is on a beta bocker. Initial troponin is negative. Will continue efforts to get his medication list from the Assisted living facility. Viral testing for COVID-19 ordered and patient placed on airborne, droplet and contact isolation. Will admit to telemetry, get ECHO, TSH, carotid doppler, fasting lipids, brain MRI, do speech and swallow evaluation, neurochecks and implement fall/aspiration/seizure precautions. Consult PT/Neurology/Cardiology. Will continue comprehensive care for all of patients comorbid conditions. 2. Obesity Counseled on the risks associated with obesity. Will provide patient all the necessary assistance, counseling and positive reinforcement to facilitate weight loss. Consult system validation engineer. 3. Hypertension Will restart suitable outpatient antihypertensive drugs when clinically appropriate. Subsequently, will revise regimen to ensure [id number] excellent BP control. Patient counseled on the injurious effects of uncontrolled hypertension. Nonpharmacologic measures to control hypertension like weight loss, salt restriction and exercise stressed. Importance of adherence to treatment regimen and attainment of normotension emphasized. 4. Tobacco Use Counseled on risks associated with tobacco use. We will provide patient all the necessary assistance to facilitate smoking cessation and prescribe Nicotine patch. 5. DVT prophylaxis - Lovenox 40 mg SQ q 24 hours. 5. Advance directives - Full code
--- OUTSIDE RECORDS SUMMARY | 2019-12-22 21:10 | XMS ---
:1935 Author Organization [facility] Care Team Providers Name Role Phone Chumaceiro, Mukesh Unavailable Unavailable Chumaceiro, Mukesh Unavailable Unavailable Chumaceiro, Mukesh Unavailable Unavailable Chumaceiro, Mukesh Unavailable Unavailable Chumaceiro, Mukesh Unavailable Unavailable Chumaceiro, Mukesh Unavailable Unavailable Chumaceiro, Mukesh Unavailable Unavailable Chumaceiro, Mukesh Unavailable Unavailable ED STAFF PHYSICIANNAYELI Unavailable Unavailable Re-disclosure Warning The records that you are about to access may contain information from federally- assisted alcohol or drug abuse programs. If such information is present, then the following federally mandated warning applies: This information has been disclosed to you from records protected by federal confidentiality rules (42 CFR part 2). The federal rules prohibit you from making any further disclosure of this information unless further disclosure is expressly permitted by the written consent of the person to whom it pertains or as otherwise permitted by 42 CFR part 2. A general authorization for the release of medical or other information is NOT sufficient for this purpose. The Federal rules restrict any use of the information to criminally investigate or prosecute any alcohol or drug abuse patient.The records that you are about to access may contain highly sensitive health information, the redisclosure of which is protected by Article 27-F of the [place] Public Health law. If you continue you may haveaccess to information: Regarding HIV / AIDS; Provided by facilities licensed or operated by the [facility] Office of Mental Health; or Provided by the [facility] Office for People With Developmental Disabilities. If such information is present, then the following [facility] mandated warning applies: This information has been disclosed to you from confidential records which are protected by state law. State law prohibits you from making any further disclosure of this information without the specific written consent of the person to whom it pertains, or as otherwise permitted by law. Any unauthorized further disclosure in violation of state law may result in a fine or [place] [facility] sentence or both. A general authorization for the release of medical or other information is NOT sufficient authorization for further disclosure. Encounters Encounter Providers Location Date Indications Data Source(s ) Attender: Mukesh 12/03/2019 [facility] ([facility] 12:00:00 AM Medical, ) EDT Office Attender: Mukesh 11/27/2019 12:00:00 AM EDT [facility] ([facility]) Office Attender: Mukesh 11/27/2019 12:00:00 AM EDT [facility] ([facility]) Office Attender: Mukesh 11/27/2019 12:00:00 AM EDT [facility] ([facility]) Office Emergency Attender: NAYELI STAFF H 06/19/2018 01:27:00 PM [facility] PHYSICIANAdmitter: [facility] STAFF PHYSICIAN Medications Medication Brand Start Product Dose Route [facility] Indications Reaction Description Data Name Date Form Instructions Instructions Source(s) Metoprolol METOPR 06/14/ TABLET 60 complet METOP ROLOL [facility] (St Tartrate 50 OLOL 2016 ed TARTRATE [facility] Oral TARTRA 12:00: Medical, Tablet [id number] 00 AM PC) METOPROLOL 514 EST TARTRATE:86 6514 Lisinopril LISINO 06/14/ TABLET 30 complet LISIN OPRIL [facility] (St 40 MG Oral PRIL:1 2016 ed [facility] Tablet 41672 12:00: Medical, LISINOPRIL: 00 AM PC) [id number] EST Lisinopril LISINO 06/14/ TABLET 30 complet LISIN OPRIL [facility] (St 40 MG Oral PRIL:1 2017 ed [facility] Tablet 86147 12:00: Medical, LISINOPRIL: 00 AM PC) [id number] EST Metoprolol METOPR 06/14/ TABLET 60 complet METOP ROLOL [facility] (St Tartrate 50 OLOL 2017 ed TARTRATE [facility] MG Oral TARTRA 12:00: Medical, Tablet [id number] 00 AM PC) METOPROLOL 514 EST TARTRATE:86 6514 carbamide carbam 10 complet Ear Drops Saint peroxide 65 jaida ed (carbamide Cherri sephs MG/ML Otic peroxi peroxide) Me dical Solution de Center carbamide (Ear peroxide Drops (Ear Drops (carba (carbamide mide peroxide)) peroxi 6.5 % de)) Drops, 6.5 % Ordered By: Drops, Joyce Meril, Ordere NPDirection d By: s: 10 drop Joyce otic, both Meril, ears three NPDire times a day ctions : 10 drop otic, both ears three times a day Insurance Providers Payer name Policy Policy ID Covered Covered Policy Plan Info rmation type / constitution party ID constitution party's Ontiver[employer] Coverage relationship type to ontiveros MEDICAID [id number] SP [id number] [facility] [id number] SP [id number] [place] [id number] 1 [id number] PART B [place] MEDICA[place] OF [id number] [facility] [id number] 1 [id number] 1 HEALTHCARE (PPO) [place] [id number] 1 [id number] [facility] [id number] 1 [id number] [place] BLUE SHIELD MCR [place] [id number] 1 [id number] PART B [place] [id number] 01 [id number] HEALTHCARE MCARE OPD W [id number] 01 [id number] MEDIBLUE OP O 01 MEDICAID [place] [id number] 1 [id number] [place] Problems, Conditions, and Diagnoses Code Display Name Description Problem Type Effective Data Sour ce(s) Dates R53.83 Other fatigue OTHER FATIGUE Problem 11/27/2019 [facility] ( St 12:00:00 AM [facility]T Medical, PC) R53.83 Other fatigue OTHER FATIGUE Problem 11/27/2019 [facility] ( St 12:00:00 AM [facility], ) E78.5 Hyperlipidemia, HYPERLIPIDEMIA, Problem 06/02/2019 MEDG EN (St unspecified UNSPECIFIED 12:00:00 AM [facility], ) E78.5 Hyperlipidemia, HYPERLIPIDEMIA, Problem 06/02/2019 MEDG EN (St unspecified UNSPECIFIED 12:00:00 AM [facility], ) M25.569 Pain in PAIN IN Problem 05/23/2019 [facility] (St unspecified knee UNSPECIFIED KNEE 12:00:00 AM [facility] [place], ) M25.569 Pain in PAIN IN Problem 05/23/2019 [facility] (St unspecified knee UNSPECIFIED KNEE 12:00:00 AM [facility] [place], ) 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 06/10/2018 [facility] (St language LANGUAGE 12:00:00 AM [facility] development delay DEVELOPMENT DELAY [facility], ) 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 06/10/2018 [facility] (St language LANGUAGE 12:00:00 AM [facility] development delay DEVELOPMENT DELAY [facility], ) 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 7 [facility] (St loss, bilateral LOSS, BILATERAL 12:00:00 AM [facility], ) 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 7 [facility] (St loss, bilateral LOSS, BILATERAL 12:00:00 AM [facility], ) M54.5 Low back pain LOW BACK PAIN Problem 01/15/2017 [facility] ( St 12:00:00 AM [facility], ) M54.5 Low back pain LOW BACK PAIN Problem 01/15/2017 [facility] ( St 12:00:00 AM [facility], ) M54.2 Cervicalgia CERVICALGIA Problem 07/12/2016 [facility] (St 12:00:00 AM [facility], ) M54.2 Cervicalgia CERVICALGIA Problem 07/12/2016 [facility] (St 12:00:00 AM [facility] EDT Medical, PC) R25.2 Cramp and spasm CRAMP AND SPASM Problem 06/14/2016 MEDG EN (St 12:00:00 AM [facility] Medical, PC) I10 Essential ESSENTIAL Problem 06/14/2016 [facility] (St (primary) (PRIMARY) 12:00:00 AM [facility] hypertension HYPERTENSION EST Medical, P C) R25.2 Cramp and spasm CRAMP AND SPASM Problem 06/14/2016 MED[facility] EN (St 12:00:00 AM [facility] EST Medical, PC) I10 Essential ESSENTIAL Problem 06/14/2016 [facility] (St (primary) (PRIMARY) 12:00:00 AM [facility] hypertension HYPERTENSION EST Medical, P C) I10 Essential ESSENTIAL Diagnosis 06/19/2018 [facility] (primary) (PRIMARY) 01:27:00 PM [facility] Cent[facility] r hypertension HYPERTENSION EDT H61.21 Impacted cerumen, IMPACTED CERUMEN, Diagnosis 06/19/2018 [facility] right ear RIGHT EAR 01:27:00 PM Medical Cente r EDT H92.01 Otalgia, right ear OTALGIA, RIGHT EAR Diagnosis 9 [facility] 01:27:00 PM Medical Cent[facility] r EDT Surgeries/Procedures Procedure Description Date Indications Data Source(s) Documentation of current 12/03/2019 [facility] ([facility] medications (procedure) 12:00:00 AM EDT [facility] wells, KASIA) OFFICE OUTPATIENT VISIT 15 12/03/2019 Call[facility] GRANGER ([facility] MINUTES 12:00:00 AM EDT Medical, PC) Documentation of current 11/27/2019 [facility] ([facility] medications (procedure) 12:00:00 AM EDT [facility], PC) Documentation of current 11/27/2019 [facility] ([facility] medications (procedure) 12:00:00 AM EDT [facility], PC) Documentation of current 11/27/2019 [facility] ([facility] medications (procedure) 12:00:00 AM EDT [facility], PC) OFFICE OUTPATIENT VISIT 25 11/27/2019 [facility] GRANGER ([facility] MINUTES 12:00:00 AM EDT Medical, PC) Documentation of current 11/27/2019 [facility] ([facility] medications (procedure) 12:00:00 AM EDT [facility], PC) OFFICE OUTPATIENT VISIT 25 11/27/2019 M EDGEN ([facility] MINUTES 12:00:00 AM ED Medical, ) Documentation of current 06/02/2019 [facility] ([facility] medications (procedure) 12:00:00 AM EST edical, ) Documentation of current 06/02/2019 [facility] ([facility] medications (procedure) 12:00:00 AM EST edical, PC) Documentation of current 06/02/2019 [facility] ([facility] medications (procedure) 12:00:00 AM EST edical, ) Electrocardiogram, routine 06/02/2019 [facility] ([facility] ecg with 12 leads; 12:00:00 AM EST Medica l, PC) interpretation and report only, performed as a screening for the initial preventive physical examination OFFICE OUTPATIENT VISIT 15 06/02/2019 M EDGEN ([facility] MINUTES 12:00:00 AM EST Medical, PC) COLLECTION VENOUS BLOOD 06/02/2019 MED[facility] EN ([facility] VENIPUNCTURE 12:00:00 AM EST Medical, PC) Documentation of current 06/02/2019 [facility] ([facility] medications (procedure) 12:00:00 AM EST edical, PC) Documentation of current 06/02/2019 [facility] ([facility] medications (procedure) 12:00:00 AM EST edical, PC) Documentation of current 06/02/2019 [facility] ([facility] medications (procedure) 12:00:00 AM EST edical, ) Electrocardiogram, routine 06/02/2019 [facility] ([facility] ecg with 12 leads; 12:00:00 AM EST Medica l, PC) interpretation and report only, performed as a screening for the initial preventive physical examination OFFICE OUTPATIENT VISIT 15 06/02/2019 M [facility] ([facility] MINUTES 12:00:00 AM EST Medical, ) COLLECTION VENOUS BLOOD 06/02/2019 [facility] EN ([facility] VENIPUNCTURE 12:00:00 AM EST Medical, PC) Documentation of current 05/23/2019 [facility] ([facility] medications (procedure) 12:00:00 AM EST edical, PC) Documentation of current 05/23/2019 [facility] ([facility] medications (procedure) 12:00:00 AM EST edical, ) OFFICE OUTPATIENT VISIT 10 05/23/2019 [facility] GRANGER ([facility] MINUTES 12:00:00 AM EST Medical, ) Documentation of current 05/23/2019 [facility] ([facility] medications (procedure) 12:00:00 AM EST edical, PC) Documentation of current 05/23/2019 [facility] ([facility] medications (procedure) 12:00:00 AM EST edical, PC) OFFICE OUTPATIENT VISIT 10 05/23/2019 [facility] GRANGER ([facility] MINUTES 12:00:00 AM EST Medical, PC) Documentation of current 01/27/2019 [facility] ([facility] medications (procedure) 12:00:00 AM EDT edical, PC) Documentation of current 01/27/2019 [facility] ([facility] medications (procedure) 12:00:00 AM EDT edical, PC) OFFICE OUTPATIENT VISIT 10 01/27/2019 [facility] GRANGER ([facility] MINUTES 12:00:00 AM EDT Medical, PC) Documentation of current 01/27/2019 [facility] ([facility] medications (procedure) 12:00:00 AM EDT edical, ) Documentation of current 01/27/2019 [facility] ([facility] medications (procedure) 12:00:00 AM EDT edical, PC) OFFICE OUTPATIENT VISIT 10 01/27/2019 [facility] GRANGER ([facility] MINUTES 12:00:00 AM EDT Medical, ) Documentation of current 10/25/2018 [facility] ([facility] medications (procedure) 12:00:00 AM EDT edical, PC) OFFICE OUTPATIENT VISIT 15 10/25/2018 [facility] GRANGER ([facility] MINUTES 12:00:00 AM EDT Medical, PC) Documentation of current 10/25/2018 [facility] ([facility] medications (procedure) 12:00:00 AM EDT edical, PC) OFFICE OUTPATIENT VISIT 15 10/25/2018 [facility] GRANGER ([facility] MINUTES 12:00:00 AM EDT Medical, PC) Documentation of current 07/24/2018 [facility] ([facility] medications (procedure) 12:00:00 AM EDT edical, PC) Documentation of current 07/24/2018 [facility] ([facility] medications (procedure) 12:00:00 AM EDT edical, PC) Documentation of current 07/24/2018 [facility] ([facility] medications (procedure) 12:00:00 AM EDT [facility]um edical, PC) OFFICE OUTPATIENT VISIT 15 07/24/2018 Callum BÁRBARA ([facility] MINUTES 12:00:00 AM EDT Medical, PC) Documentation of current 07/24/2018 [facility] ([facility] medications (procedure) 12:00:00 AM EDT Callum melendrezical, PC) Documentation of current 07/24/2018 [facility] ([facility] medications (procedure) 12:00:00 AM EDT [facility] melendrezical, PC) Documentation of current 07/24/2018 [facility] ([facility] medications (procedure) 12:00:00 AM EDT edical, PC) OFFICE OUTPATIENT VISIT 15 07/24/2018 Callum BÁRBARA ([facility] MINUTES 12:00:00 AM EDT Medical, PC) Documentation of current 06/10/2018 [facility] ([facility] medications (procedure) 12:00:00 AM EST [facility] melendrezical, PC) Documentation of current 06/10/2018 [facility] ([facility] medications (procedure) 12:00:00 AM EST [facility] melendrezical, PC) Documentation of current 06/10/2018 [facility] ([facility] medications (procedure) 12:00:00 AM EST [facility] melendrezical, PC) OFFICE OUTPATIENT VISIT 15 06/10/2018 Callum BÁRBARA ([facility] MINUTES 12:00:00 AM EST Medical, PC) Documentation of current 06/10/2018 [facility] ([facility] medications (procedure) 12:00:00 AM EST [facility] melendrezical, PC) Documentation of current 06/10/2018 [facility] ([facility] medications (procedure) 12:00:00 AM EST [facility] edical, PC) Documentation of current 06/10/2018 [facility] ([facility] medications (procedure) 12:00:00 AM EST [facility] edical, PC) OFFICE OUTPATIENT VISIT 15 06/10/2018 Callum BÁRBARA ([facility] MINUTES 12:00:00 AM EST Medical, PC) Documentation of current 05/17/2018 [facility] ([facility] medications (procedure) 12:00:00 AM EST [facility]um melendrezical, PC) Documentation of current 05/17/2018 [facility] ([facility] medications (procedure) 12:00:00 AM EST M edical, PC) OFFICE OUTPATIENT VISIT 15 05/17/2018 [facility]um GRANGER ([facility] MINUTES 12:00:00 AM EST Medical, PC) Documentation of current 05/17/2018 [facility] ([facility] medications (procedure) 12:00:00 AM EST M edical, PC) Documentation of current 05/17/2018 [facility] ([facility] medications (procedure) 12:00:00 AM EST [facility] edical, PC) OFFICE OUTPATIENT VISIT 15 05/17/2018 [facility] GRANGER ([facility] MINUTES 12:00:00 AM EST Medical, PC) Documentation of current 02/06/2018 [facility] ([facility] medications (procedure) 12:00:00 AM EDT edical, PC) Documentation of current 02/06/2018 [facility] ([facility] medications (procedure) 12:00:00 AM EDT edical, PC) OFFICE OUTPATIENT VISIT 15 02/06/2018 [facility] GRANGER ([facility] MINUTES 12:00:00 AM EDT Medical, PC) Documentation of current 02/06/2018 [facility] ([facility] medications (procedure) 12:00:00 AM EDT edical, PC) Documentation of current 02/06/2018 [facility] ([facility] medications (procedure) 12:00:00 AM EDT edical, PC) OFFICE OUTPATIENT VISIT 15 02/06/2018 [facility] GRANGER ([facility] MINUTES 12:00:00 AM EDT Medical, PC) Documentation of current 07/23/2017 [facility] ([facility] medications (procedure) 12:00:00 AM EDT [facility] edical, PC) Documentation of current 07/23/2017 [facility] ([facility] medications (procedure) 12:00:00 AM EDT edical, PC) Documentation of current 07/23/2017 [facility] ([facility] medications (procedure) 12:00:00 AM EDT edical, PC) Documentation of current 07/23/2017 [facility] ([facility] medications (procedure) 12:00:00 AM EDT edical, PC) Documentation of current 07/23/2017 [facility] ([facility] medications (procedure) 12:00:00 AM EDT edical, PC) OFFICE OUTPATIENT VISIT 15 07/23/2017 [facility] GRANGER ([facility] MINUTES 12:00:00 AM EDT Medical, PC) Documentation of current 07/23/2017 [facility] ([facility] medications (procedure) 12:00:00 AM EDT [facility] edical, PC) Documentation of current 07/23/2017 [facility] ([facility] medications (procedure) 12:00:00 AM EDT edical, PC) Documentation of current 07/23/2017 [facility] ([facility] medications (procedure) 12:00:00 AM EDT edical, PC) Documentation of current 07/23/2017 [facility] ([facility] medications (procedure) 12:00:00 AM EDT edical, PC) Documentation of current 07/23/2017 [facility] ([facility] medications (procedure) 12:00:00 AM EDT edical, PC) OFFICE OUTPATIENT VISIT 15 07/23/2017 [facility] GRANGER ([facility] MINUTES 12:00:00 AM EDT Medical, PC) Documentation of current 05/22/2017 [facility] ([facility] medications (procedure) 12:00:00 AM EST [facility] melendrezical, PC) Documentation of current 05/22/2017 [facility] ([facility] medications (procedure) 12:00:00 AM EST [facility] edical, PC) OFFICE OUTPATIENT VISIT 15 05/22/2017 [facility] GRANGER ([facility] MINUTES 12:00:00 AM EST Medical, PC) Documentation of current 05/22/2017 [facility] ([facility] medications (procedure) 12:00:00 AM EST [facility] melendrezical, PC) Documentation of current 05/22/2017 [facility] ([facility] medications (procedure) 12:00:00 AM EST [facility] edical, PC) OFFICE OUTPATIENT VISIT 15 05/22/2017 [facility] GRANGER ([facility] MINUTES 12:00:00 AM EST Medical, PC) Documentation of current 04/17/2017 [facility] ([facility] medications (procedure) 12:00:00 AM EST [facility] edical, PC) Documentation of current 04/17/2017 [facility] ([facility] medications (procedure) 12:00:00 AM EST [facility] edical, PC) Documentation of current 04/17/2017 [facility] ([facility] medications (procedure) 12:00:00 AM EST [facility] melendrezical, PC) OFFICE OUTPATIENT VISIT 15 04/17/2017 [facility] GRANGER ([facility] MINUTES 12:00:00 AM EST Medical, PC) Documentation of current 04/17/2017 MED [facility] ([facility] medications (procedure) 12:00:00 AM EST M edical, PC) Documentation of current 04/17/2017 [facility] ([facility] medications (procedure) 12:00:00 AM EST M edical, PC) Documentation of current 04/17/2017 [facility] ([facility] medications (procedure) 12:00:00 AM EST M edical, PC) OFFICE OUTPATIENT VISIT 15 04/17/2017 [facility] GRANGER ([facility] MINUTES 12:00:00 AM EST Medical, PC) Documentation of current 03/21/2017 [facility] ([facility] medications (procedure) 12:00:00 AM EST M edical, PC) OFFICE OUTPATIENT VISIT 15 03/21/2017 [facility] GRANGER ([facility] MINUTES 12:00:00 AM EST Medical, PC) Documentation of current 03/21/2017 MED [facility] ([facility] medications (procedure) 12:00:00 AM EST M edical, PC) OFFICE OUTPATIENT VISIT 15 03/21/2017 [facility]um GRANGER ([facility] MINUTES 12:00:00 AM EST Medical, PC) Documentation of current 03/15/2017 [facility] ([facility] medications (procedure) 12:00:00 AM EST M edical, PC) OFFICE OUTPATIENT VISIT 15 03/15/2017 Callum GRANGER ([facility] MINUTES 12:00:00 AM EST Medical, PC) Documentation of current 03/15/2017 MED [facility] ([facility] medications (procedure) 12:00:00 AM EST M edical, PC) OFFICE OUTPATIENT VISIT 15 03/15/2017 Callum RDZN ([facility] MINUTES 12:00:00 AM EST Medical, PC) Documentation of current 01/15/2017 MED [facility] ([facility] medications (procedure) 12:00:00 AM EDT M edical, PC) OFFICE OUTPATIENT VISIT 15 01/15/2017 Callum RDZN ([facility] MINUTES 12:00:00 AM EDT Medical, PC) Documentation of current 01/15/2017 MED [facility] ([facility] medications (procedure) 12:00:00 AM EDT M edical, PC) OFFICE OUTPATIENT VISIT 15 01/15/2017 Callum RDZN ([facility] MINUTES 12:00:00 AM EDT Medical, PC) Documentation of current 07/12/2016 MED [facility] ([facility] medications (procedure) 12:00:00 AM EDT edical, PC) Documentation of current 07/12/2016 MED [facility] ([facility] medications (procedure) 12:00:00 AM EDT edical, PC) OFFICE OUTPATIENT VISIT 15 07/12/2016 Callum BÁRBARA ([facility] MINUTES 12:00:00 AM EDT Medical, PC) Documentation of current 07/12/2016 MED [facility] ([facility] medications (procedure) 12:00:00 AM EDT edical, PC) Documentation of current 07/12/2016 MED [facility] ([facility] medications (procedure) 12:00:00 AM EDT edical, PC) OFFICE OUTPATIENT VISIT 15 07/12/2016 Callum BÁRBARA ([facility] MINUTES 12:00:00 AM EDT Medical, PC) Documentation of current 06/14/2016 MED [facility] ([facility] medications (procedure) 12:00:00 AM EST edical, PC) Documentation of current 06/14/2016 [facility] ([facility] medications (procedure) 12:00:00 AM EST edical, PC) Documentation of current 06/14/2016 [facility] ([facility] medications (procedure) 12:00:00 AM EST edical, PC) OFFICE OUTPATIENT VISIT 25 06/14/2016 Callum BÁRBARA ([facility] MINUTES 12:00:00 AM EST Medical, PC) Documentation of current 06/14/2016 MED [facility] ([facility] medications (procedure) 12:00:00 AM EST edical, PC) Documentation of current 06/14/2016 MED [facility] ([facility] medications (procedure) 12:00:00 AM EST edical, PC) Documentation of current 06/14/2016 [facility] ([facility] medications (procedure) 12:00:00 AM EST edical, PC) OFFICE OUTPATIENT VISIT 25 06/14/2016 Callum KAJALN ([facility] MINUTES 12:00:00 AM EST Medical, PC) Results ID Date Data Source [id number] 10/29/2019 05:30:00 PM EDT [facility] Name Value Range Interpretation Description Data Sup porting Code Source(s) Document(s ) SARS [facility] coronavirus 2 RNA This lab was ordered by [facility] and reported by [facility]. ID Date Data Source [id number] 06/02/2019 12:00:00 AM EST [facility] ([facility], ) Name Value Range Interpretation Description Data Sup porting Code Source(s) Document(s ) Cholesterol 173 Normal (applies MEDGEN (St [Mass/volume] in mg/dL to non-numeric [facility] Serum or Plasma results) Medical, ) Triglyceride 139 Normal (applies MEDGEN (St [Mass/volume] in mg/dL to non-numeric [facility] Serum or Plasma results) Medical, ) HDL Cholesterol 32 mg/dL Below low normal [facility] ([facility], ) VLDL Cholesterol 28 mg/dL Normal (applies MEDGEN (St Delvin to non-numeric [facility] results) Medical, PC) LDL Cholesterol 113 Above high normal MEDGEN (St Calc mg/dL [facility], ) ID Date Data Source [id number] 06/02/2019 12:00:00 AM EST [facility] ([facility], ) Name Value Range Interpretation Description Data Sup porting Code Source(s) Document(s ) Urine-Color Yellow Normal (applies MEDGEN (St to non-numeric [facility] results) Medical, PC) Specific gravity 1.028 Normal (applies MEDGEN (St of Pericardial to non-numeric [facility] fluid by results) Medical, Refractometry PC) pH of Lower 5.0 Normal (applies MEDGEN (St respiratory to non-numeric [facility] specimen results) Medical, ) WBC Esterase Negative Normal (applies [facility]GEN (St to non-numeric [facility] results) Medical, PC) Appearance of Turbid Abnormal (applies MEDGEN ( St Abdomen to non-numeric [facility] results) Medical, PC) Protein Trace Normal (applies MEDGEN (St [Mass/volume] in to non-numeric [facility] Lower results) Medical, respiratory PC) specimen Glucose Negative Normal (applies MEDGEN (St [Mass/volume] in to non-numeric [facility] Urine collected results) Medical, for unspecified PC) duration Ketones Trace Abnormal (applies MEDGEN (St [Presence] in to non-numeric [facility] Blood by Tablet results) Medical, PC) Bilirubin Negative Normal (applies MEDGEN (St [Presence] in to non-numeric [facility] Peritoneal fluid results) Medical, PC) Occult Blood Negative Normal (applies MEDGEN (St to non-numeric [facility] results) Medical, PC) Microscopic Normal (applies MEDGEN (St Examination to non-numeric [facility] results) Medical, PC) Nitrite, Urine Negative Normal (applies MEDGEN (S t to non-numeric [facility] results) Medical, PC) Urobilinogen,Loretta 0.2 mg/dL Normal (applies MEDGEN (St i-Qn to non-numeric [facility] results) Medical, PC) ID Date Data Source [id number] 06/02/2019 12:00:00 AM EST [facility] ([facility], PC) Name Value Range Interpretation Description Data Sup porting Code Source(s) Document(s ) Urea nitrogen 15 mg/dL Normal (applies MEDGEN (St [Mass/volume] in to non-numeric [facility] Serum or Plasma results) Medical, PC) Glucose 113 Above high MEDGEN (St [Mass/volume] in mg/dL normal [facility] Urine collected for Medical, unspecified PC) duration eGFR If Africn Am 71 Normal (applies MEDGEN (St mL/min/1 to non-numeric [facility] .73 results) Medical, PC) Creatinine 1.11 Normal (applies MEDGEN (St [Interpretation] in mg/dL to non-numeric [facility] Urine results) Medical, PC) eGFR If NonAfricn 61 Normal (applies MEDGEN (St Am mL/min/1 to non-numeric [facility] .73 results) Medical, PC) Sodium 140 Normal (applies MEDGEN (St [Moles/volume] in mmol/L to non-numeric [facility] Serum or Plasma results) Medical, PC) BUN/Creatinine 14 Normal (applies [facility]GEN (S t Ratio to non-numeric [facility] results) [facility], PC) Carbon dioxide, 21 Normal (applies MEDGEN ( St total mmol/L to non-numeric [facility] [Moles/volume] in results) Medical, Serum or Plasma PC) Potassium 3.9 Normal (applies [facility]GEN (St [Mass/volume] in mmol/L to non-numeric [facility] Blood results) Medical, PC) Chloride 105 Normal (applies MEDGEN (St [Moles/volume] in mmol/L to non-numeric [facility] Serum or Plasma results) Medical, ) Calcium 9.6 Normal (applies [facility]GEN (St [Moles/volume] in mg/dL to non-numeric [facility] Urine collected for results) Medical, unspecified ) duration Protein 6.5 g/dL Normal (applies [facility]GEN (St [Mass/volume] in to non-numeric [facility] Serum or Plasma results) Medical, ) Globulin, Total 2.5 g/dL Normal (applies MEDGEN ( St to non-numeric [facility] results) Medical, ) A/G Ratio 1.6 Normal (applies [facility]GEN (St to non-numeric [facility] results) Medical, ) Microalbumin 4.0 g/dL Normal (applies [facility]GEN (St [Mass/time] in to non-numeric [facility] Urine collected for results) [facility], unspecified ) duration Bilirubin.total 0.4 Normal (applies MEDGEN ( St [Mass/volume] in mg/dL to non-numeric [facility] Serum or Plasma results) Medical, ) Alkaline 90 IU/L Normal (applies [facility]GEN (St phosphatase to non-numeric [facility] [Enzymatic results) Medical, activity/volume] in PC) Serum, Plasma or Blood Aspartate 13 IU/L Normal (applies [facility]GEN (St aminotransferase to non-numeric [facility] [Enzymatic results) Medical, activity/volume] in ) Serum or Plasma Alanine 13 IU/L Normal (applies MEDGEN (St aminotransferase to non-numeric [facility] [Enzymatic results) Medical, activity/volume] in ) Serum or Plasma ID Date Data Source [id number] 06/02/2019 12:00:00 AM EST MEDGEN ([facility], ) Name Value Range Interpretation Description Data Sup porting Code Source(s) Document(s ) Cholesterol 173 Normal (applies [facility]GEN (St [Mass/volume] in mg/dL to non-numeric [facility] Serum or Plasma results) Medical, ) Triglyceride 139 Normal (applies [facility]GEN (St [Mass/volume] in mg/dL to non-numeric [facility] Serum or Plasma results) [facility], ) HDL Cholesterol 32 mg/dL Below low normal MED[facility] ([facility], ) LDL Cholesterol 113 Above high normal MEDGEN (St Calc mg/dL [facility], ) VLDL Cholesterol 28 mg/dL Normal (applies MEDGEN (St [place]vin to non-numeric [facility] results) Medical, PC) ID Date Data Source [id number] 06/02/2019 12:00:00 AM EST [facility] ([facility] Name Value Range Interpretation Description Data Sup porting Code Source(s) Document(s ) Specific gravity 1.028 Normal (applies [facility]GEN (St of Pericardial to non-numeric [facility] fluid by results) Medical, Refractometry PC) pH of Lower 5.0 Normal (applies [facility] (St respiratory to non-numeric [facility] specimen results) Medical, PC) Urine-Color Yellow Normal (applies [facility] (St to non-numeric [facility] results) Medical, PC) Appearance of Turbid Abnormal (applies [facility]GEN ( St Abdomen to non-numeric [facility] results) Medical, PC) Protein Trace Normal (applies [facility] (St [Mass/volume] in to non-numeric [facility] Lower results) Medical, respiratory PC) specimen WBC Esterase Negative Normal (applies [facility] (St to non-numeric [facility] results) [facility], PC) Glucose Negative Normal (applies [facility] (St [Mass/volume] in to non-numeric [facility] Urine collected results) Medical, for unspecified PC) duration Occult Blood Negative Normal (applies [facility] (St to non-numeric [facility] results) Medical, PC) Ketones Trace Abnormal (applies [facility] (St [Presence] in to non-numeric [facility] Blood by Tablet results) Medical, PC) Urobilinogen,Loretta 0.2 mg/dL Normal (applies [facility]GEN (St i-Qn to non-numeric [facility] results) Medical, PC) Bilirubin Negative Normal (applies [facility] (St [Presence] in to non-numeric [facility] Peritoneal fluid results) Medical, PC) Microscopic Normal (applies [facility] (St Examination to non-numeric [facility] results) Medical, PC) Nitrite, Urine Negative Normal (applies [facility] (S t to non-numeric [facility] results) Medical, PC) ID Date Data Source [id number] 06/02/2019 12:00:00 AM EST [facility] ([facility]) Name Value Range Interpretation Description Data Sup porting Code Source(s) Document(s ) Glucose 113 Above high MEDGEN (St [Mass/volume] in mg/dL normal [facility] Urine collected for Medical, unspecified PC) duration Urea nitrogen 15 mg/dL Normal (applies [facility] (St [Mass/volume] in to non-numeric [facility] Serum or Plasma results) Medical, PC) eGFR If NonAfricn 61 Normal (applies MEDGEN (St Am mL/min/1 to non-numeric [facility] .73 results) Medical, PC) Creatinine 1.11 Normal (applies [facility]GEN (St [Interpretation] in mg/dL to non-numeric [facility] Urine results) Medical, PC) eGFR If Africn Am 71 Normal (applies [facility]GEN (St mL/min/1 to non-numeric [facility] .73 results) Medical, PC) BUN/Creatinine 14 Normal (applies [facility]GEN (S t Ratio to non-numeric [facility] results) Medical, PC) Sodium 140 Normal (applies [facility] (St [Moles/volume] in mmol/L to non-numeric [facility] Serum or Plasma results) Medical, PC) Potassium 3.9 Normal (applies [facility] (St [Mass/volume] in mmol/L to non-numeric [facility] Blood results) Medical, PC) Carbon dioxide, 21 Normal (applies MEDGEN ( St total mmol/L to non-numeric [facility] [Moles/volume] in results) Medical, Serum or Plasma PC) Chloride 105 Normal (applies [facility] (St [Moles/volume] in mmol/L to non-numeric [facility] Serum or Plasma results) Medical, PC) Calcium 9.6 Normal (applies [facility]GEN (St [Moles/volume] in mg/dL to non-numeric [facility] Urine collected for results) Medical, unspecified PC) duration Protein 6.5 g/dL Normal (applies [facility]GEN (St [Mass/volume] in to non-numeric [facility] Serum or Plasma results) Medical, PC) Microalbumin 4.0 g/dL Normal (applies [facility]GEN (St [Mass/time] in to non-numeric [facility] Urine collected for results) Medical, unspecified PC) duration Globulin, Total 2.5 g/dL Normal (applies [facility]GEN ( St to non-numeric [facility] results) Medical, PC) Bilirubin.total 0.4 Normal (applies MEDGEN ( St [Mass/volume] in mg/dL to non-numeric [facility] Serum or Plasma results) Medical, PC) A/G Ratio 1.6 Normal (applies [facility] (St to non-numeric [facility] results) [facility], ) Aspartate 13 IU/L Normal (applies MEDGEN (St aminotransferase to non-numeric [facility] [Enzymatic results) Medical, activity/volume] in ) Serum or Plasma Alkaline 90 IU/L Normal (applies [facility]GEN (St phosphatase to non-numeric [facility] [Enzymatic results) Medical, activity/volume] in ) Serum, Plasma or Blood Alanine 13 IU/L Normal (applies [facility]GEN (St aminotransferase to non-numeric [facility] [Enzymatic results) Medical, activity/volume] in ) Serum or Plasma ID Date Data Source [id number] 06/14/2016 12:00:00 AM EST MEDGEN ([facility]) Name Value Range Interpretation Description Data Sup porting Code Source(s) Document(s ) Bilirubin.c 0.13 mg/dL Normal (applies to MEDGEN ( St onjugated non-numeric [facility] [Mass/volum results) [facility]) e] in Serum or Plasma ID Date Data Source [id number] 06/14/2016 12:00:00 AM EST MEDGEN ([facility]) Name Value Range Interpretation Description Data Sup porting Code Source(s) Document(s ) Triglyceride 145 Normal (applies MEDGEN (St [Mass/volume] in mg/dL to non-numeric [facility] Serum or Plasma results) [facility]) Cholesterol 201 Above high normal MEDGEN (St [Mass/volume] in mg/dL [facility] Serum or Plasma [facility]) HDL Cholesterol 42 mg/dL Normal (applies MEDGEN ( St to non-numeric [facility] results) [facility]) VLDL Cholesterol 29 mg/dL Normal (applies MEDGEN (St [place] to non-numeric [facility] results) [facility]) LDL Cholesterol 130 Above high normal MEDGEN (St Calc mg/dL [facility]) ID Date Data Source [id number] 06/14/2016 12:00:00 AM EST MEDGEN ([facility]) Name Value Range Interpretation Description Data Sup porting Code Source(s) Document(s ) Glucose, Serum 123 Above high MEDGEN (St mg/dL normal [facility]) Creatinine, Serum 1.31 Above high MEDGEN (St mg/dL normal [facility]) Urea nitrogen 15 mg/dL Normal (applies MEDGEN (St [Mass/volume] in to non-numeric [facility] Serum or Plasma results) Medical, ) BUN/Creatinine 11 Normal (applies MEDGEN (S t Ratio to non-numeric [facility] results) [facility], ) eGFR If Africn Am 59 Below low normal MEDGE N (St mL/min/1 [facility] [address], ) eGFR If NonAfricn 51 Below low normal MEDGE N (St Am mL/min/1 [facility], ) Sodium 141 Normal (applies MEDGEN (St [Moles/volume] in mmol/L to non-numeric [facility] Serum or Plasma results) Medical, ) Potassium, Serum 4.2 Normal (applies MEDGEN (St mmol/L to non-numeric [facility] results) [facility], ) Chloride 105 Normal (applies [facility]GEN (St [Moles/volume] in mmol/L to non-numeric [facility] Serum or Plasma results) [facility], ) Carbon dioxide, 21 Normal (applies MEDGEN ( St total mmol/L to non-numeric [facility] [Moles/volume] in results) Medical, Serum or Plasma PC) Calcium, Serum 9.4 Normal (applies [facility]GEN (S t mg/dL to non-numeric [facility] results) [facility], ) Albumin, Serum 4.4 g/dL Normal (applies [facility]GEN (S t to non-numeric [facility] results) [facility], ) Protein 6.7 g/dL Normal (applies [facility]GEN (St [Mass/volume] in to non-numeric [facility] Serum or Plasma results) Medical, ) A/G Ratio 1.9 Normal (applies [facility]GEN (St to non-numeric [facility] results) Medical, ) Globulin, Total 2.3 g/dL Normal (applies [facility]GEN ( St to non-numeric [facility] results) Medical, ) Alkaline 76 IU/L Normal (applies [facility]GEN (St Phosphatase, S to non-numeric [facility] results) [facility], ) Bilirubin.total 0.4 Normal (applies MEDGEN ( St [Mass/volume] in mg/dL to non-numeric [facility] Serum or Plasma results) Medical, ) Aspartate 17 IU/L Normal (applies [facility]GEN (St aminotransferase to non-numeric [facility] [Enzymatic results) Medical, activity/volume] in PC) Serum or Plasma Alanine 14 IU/L Normal (applies [facility]GEN (St aminotransferase to non-numeric [facility] [Enzymatic results) [facility], activity/volume] in ) Serum or Plasma ID Date Data Source [id number] 06/14/2016 12:00:00 AM EST [facility] ([facility], ) Name Value Range Interpretation Description Data Sup porting Code Source(s) Document(s ) Leukocytes 7.3 Normal (applies MEDGEN (St [#/volume] in x10E3/uL to non-numeric [facility] Blood by results) Medical, ) Automated count Hemoglobin 13.5 Normal (applies [facility]GEN (St [Mass/volume] in g/dL to non-numeric [facility] Blood results) Medical, ) Erythrocytes 4.58 Normal (applies MEDGEN (St [#/volume] in x10E6/uL to non-numeric [facility] Blood by results) [facility], ) Automated count MCH 29.5 pg Normal (applies [facility]GEN (St to non-numeric [facility] results) [facility], ) MCV 89 fL Normal (applies [facility]GEN (St to non-numeric [facility] results) [facility], ) Hematocrit 40.6 % Normal (applies MEDGEN (St [Volume to non-numeric [facility] Fraction] of results) [facility], ) Blood by Automated count MCHC 33.3 Normal (applies MEDGEN (St g/dL to non-numeric [facility] results) [facility], ) RDW 14.5 % Normal (applies [facility]GEN (St to non-numeric [facility] results) [facility], ) Neutrophils [#] 64 % Normal (applies MEDGEN ( St in Body fluid by to non-numeric [facility] Manual count results) [facility], ) Platelets 195 Normal (applies [facility]GEN (St [#/area] in x10E3/uL to non-numeric [facility] Blood by results) [facility], ) Microscopy high power field Lymphs 27 % Normal (applies [facility]GEN (St to non-numeric [facility] results) [facility], ) Monocytes 7 % Normal (applies MEDGEN (St [#/volume] in to non-numeric [facility] Cord blood results) [facility], ) Eos 2 % Normal (applies MEDGEN (St to non-numeric [facility] results) [facility], ) Neutrophils 4.7 Normal (applies MEDGEN (St (Absolute) x10E3/uL to non-numeric [facility] results) Medical, ) Basos 0 % Normal (applies [facility]GEN (St to non-numeric [facility] results) [facility], ) Lymphs 1.9 Normal (applies MEDGEN (St (Absolute) x10E3/uL to non-numeric [facility] results) [facility], ) Monocytes(Absolu 0.5 Normal (applies MEDGEN (St te) x10E3/uL to non-numeric [facility] results) [facility], ) Eos (Absolute) 0.2 Normal (applies MEDGEN (S t x10E3/uL to non-numeric [facility] results) [facility], ) Baso (Absolute) 0.0 Normal (applies MEDGEN ( St x10E3/uL to non-numeric [facility] results) [facility], ) Immature Grans 0.0 Normal (applies MEDGEN (S t (Abs) x10E3/uL to non-numeric [facility] results) [facility], ) Immature 0 % Normal (applies [facility]GEN (St Granulocytes to non-numeric [facility] results) [facility], ) ID Date Data Source [id number] 06/14/2016 12:00:00 AM EST [facility] ([facility], ) Name Value Range Interpretation Description Data Sup porting Code Source(s) Document(s ) Bilirubin.c 0.13 mg/dL Normal (applies to MEDGEN ( St onjugated non-numeric [facility] [Mass/volum results) [facility], ) e] in Serum or Plasma ID Date Data Source [id number] 06/14/2016 12:00:00 AM EST [facility] ([facility], ) Name Value Range Interpretation Description Data Sup porting Code Source(s) Document(s ) Cholesterol 201 Above high normal MEDGEN (St [Mass/volume] in mg/dL [facility] Serum or Plasma [facility], ) HDL Cholesterol 42 mg/dL Normal (applies MEDGEN ( St to non-numeric [facility] results) [facility], ) Triglyceride 145 Normal (applies MEDGEN (St [Mass/volume] in mg/dL to non-numeric [facility] Serum or Plasma results) [facility], ) VLDL Cholesterol 29 mg/dL Normal (applies MEDGEN (St [place]vin to non-numeric [facility] results) [facility], ) LDL Cholesterol 130 Above high normal [facility]GEN (St Calc mg/dL [facility]) ID Date Data Source [id number] 06/14/2016 12:00:00 AM EST [facility]GEN ([facility], ) Name Value Range Interpretation Description Data Sup porting Code Source(s) Document(s ) Glucose, Serum 123 Above high MEDGEN (St mg/dL normal [facility], ) Urea nitrogen 15 mg/dL Normal (applies MEDGEN (St [Mass/volume] in to non-numeric [facility] Serum or Plasma results) [facility]) Creatinine, Serum 1.31 Above high MEDGEN (St mg/dL normal [facility]) eGFR If Africn Am 59 Below low normal MEDGE N (St mL/min/[address]) eGFR If NonAfricn 51 Below low normal MEDGE N (St Am mL/min/[address]) BUN/Creatinine 11 Normal (applies MEDGEN (S t Ratio to non-numeric [facility] results) [facility]) Sodium 141 Normal (applies MEDGEN (St [Moles/volume] in mmol/L to non-numeric [facility] Serum or Plasma results) [facility]) Chloride 105 Normal (applies MEDGEN (St [Moles/volume] in mmol/L to non-numeric [facility] Serum or Plasma results) [facility]) Potassium, Serum 4.2 Normal (applies MEDGEN (St mmol/L to non-numeric [facility] results) [facility]) Calcium, Serum 9.4 Normal (applies MEDGEN (S t mg/dL to non-numeric [facility] results) [facility]) Carbon dioxide, 21 Normal (applies MEDGEN ( St total mmol/L to non-numeric [facility] [Moles/volume] in results) [facility], Serum or Plasma ) Albumin, Serum 4.4 g/dL Normal (applies MEDGEN (S t to non-numeric [facility] results) [facility]) Globulin, Total 2.3 g/dL Normal (applies MEDGEN ( St to non-numeric [facility] results) [facility]) Protein 6.7 g/dL Normal (applies MEDGEN (St [Mass/volume] in to non-numeric [facility] Serum or Plasma results) [facility], ) Bilirubin.total 0.4 Normal (applies MEDGEN ( St [Mass/volume] in mg/dL to non-numeric [facility] Serum or Plasma results) Medical, ) A/G Ratio 1.9 Normal (applies MEDGEN (St to non-numeric [facility] results) [facility], ) Aspartate 17 IU/L Normal (applies MEDGEN (St aminotransferase to non-numeric [facility] [Enzymatic results) Medical, activity/volume] in ) Serum or Plasma Alkaline 76 IU/L Normal (applies MEDGEN (St Phosphatase, S to non-numeric [facility] results) [facility], ) Alanine 14 IU/L Normal (applies MEDGEN (St aminotransferase to non-numeric [facility] [Enzymatic results) Medical, activity/volume] in ) Serum or Plasma ID Date Data Source [id number] 06/14/2016 12:00:00 AM EST [facility] ([facility], ) Name Value Range Interpretation Description Data Sup porting Code Source(s) Document(s ) Leukocytes 7.3 Normal (applies MEDGEN (St [#/volume] in x10E3/uL to non-numeric [facility] Blood by results) Medical, ) Automated count Hemoglobin 13.5 Normal (applies MEDGEN (St [Mass/volume] in g/dL to non-numeric [facility] Blood results) [facility], ) Erythrocytes 4.58 Normal (applies MEDGEN (St [#/volume] in x10E6/uL to non-numeric [facility] Blood by results) [facility], ) Automated count MCV 89 fL Normal (applies MEDGEN (St to non-numeric [facility] results) Medical, ) Hematocrit 40.6 % Normal (applies MEDGEN (St [Volume to non-numeric [facility] Fraction] of results) [facility], ) Blood by Automated count MCH 29.5 pg Normal (applies MEDGEN (St to non-numeric [facility] results) Medical, ) RDW 14.5 % Normal (applies MEDGEN (St to non-numeric [facility] results) [facility], ) MCHC 33.3 Normal (applies MEDGEN (St g/dL to non-numeric [facility] results) [facility], ) Neutrophils [#] 64 % Normal (applies MEDGEN ( St in Body fluid by to non-numeric [facility] Manual count results) [facility], ) Platelets 195 Normal (applies MEDGEN (St [#/area] in x10E3/uL to non-numeric [facility] Blood by results) Medical, ) Microscopy high power field Monocytes 7 % Normal (applies MEDGEN (St [#/volume] in to non-numeric [facility] Cord blood results) [facility], ) Lymphs 27 % Normal (applies MEDGEN (St to non-numeric [facility] results) Medical, ) Neutrophils 4.7 Normal (applies MEDGEN (St (Absolute) x10E3/uL to non-numeric [facility] results) [facility], ) Basos 0 % Normal (applies MEDGEN (St to non-numeric [facility] results) Medical, ) Eos 2 % Normal (applies MEDGEN (St to non-numeric [facility] results) [facility], ) Monocytes(Absolu 0.5 Normal (applies MEDGEN (St te) x10E3/uL to non-numeric [facility] results) [facility], ) Lymphs 1.9 Normal (applies MEDGEN (St (Absolute) x10E3/uL to non-numeric [facility] results) [facility], ) Eos (Absolute) 0.2 Normal (applies MEDGEN (S t x10E3/uL to non-numeric [facility] results) [facility], ) Baso (Absolute) 0.0 Normal (applies MEDGEN ( St x10E3/uL to non-numeric [facility] results) [facility], ) Immature Grans 0.0 Normal (applies MEDGEN (S t (Abs) x10E3/uL to non-numeric [facility] results) [facility], ) Immature 0 % Normal (applies MEDGEN (St Granulocytes to non-numeric [facility] results) [facility], ) Procedure Social History Code Duration Value Status Description Data Source(s ) Smoking 12/03/2019 FORMER SMNOKER completed FORMER SMNOKER NO MED GEN (St 12:00:00 AM EDT NO DRINKING DRINKING [facility]) Smoking 12/03/2019 Unknown if ever completed Unknown if ever MEDG EN (St 12:00:00 AM EDT smoked smoked [facility]) Smoking 11/27/2019 FORMER SMNOKER completed FORMER SMNOKER NO MED GEN (St 12:00:00 AM EDT NO DRINKING DRINKING [facility]) Smoking 11/27/2019 Unknown if ever completed Unknown if ever MEDG EN (St 12:00:00 AM EDT smoked smoked [facility]) Smoking 06/19/2018 Former Smoker completed Former Smoker [facility] 02:24:00 PM EDT Medical C enter Smoking 06/19/2018 Former Smoker completed Former Smoker [facility] 02:10:00 PM EDT Medical C enter Smoking 06/19/2018 Former Smoker completed Former Smoker [facility] 02:02:00 PM EDT Medical C enter Vital Signs ID Date Data Source UNK Name Value Range Interpretation Code Description Data Source(s) Body mass index 31 kg/m2 31 kg/m2 MEDGEN (S t (BMI) [Ratio] [facility], ) Diastolic blood 94 mm[Hg] 94 mm[Hg] MEDGEN (S t pressure [facility]) Systolic blood 180 mm[Hg] 180 mm[Hg] MEDGEN ([facility]) Body weight 204 lb 204 lb MEDGEN ([facility]) Body height 68 in 68 in [facility] ([facility]) Body mass index 31 kg/m2 31 kg/m2 MEDGEN (S t (BMI) [Ratio] [facility], ) Diastolic blood 102 mm[Hg] 102 mm[Hg] MEDGEN (S t pressure [facility]) Systolic blood 186 mm[Hg] 186 mm[Hg] MEDGEN ([facility]) Body weight 204 lb 204 lb MEDGEN ([facility]) Body height 68 in 68 in MEDGEN ([facility]) Body mass index 31 kg/m2 31 kg/m2 MEDGEN (S t (BMI) [Ratio] [facility], ) Diastolic blood 102 mm[Hg] 102 mm[Hg] MEDGEN (S t pressure [facility]) Systolic blood 186 mm[Hg] 186 mm[Hg] MEDGEN ([facility]) Body weight 204 lb 204 lb MEDGEN ([facility]) Body height 68 in 68 in [facility] ([facility]) Body mass index 32.2 kg/m2 32.2 kg/m2 MEDGEN (S t (BMI) [Ratio] [facility], ) Diastolic blood 94 mm[Hg] 94 mm[Hg] MEDGEN (S t pressure [facility]) Systolic blood 160 mm[Hg] 160 mm[Hg] MEDGEN ([facility]) Body weight 212 lb 212 lb MEDGEN ([facility]) Body height 68 in in [facility] ([facility]) Body mass index 32.2 kg/m2 32.2 kg/m2 MEDGEN (S t (BMI) [Ratio] [facility]) Diastolic blood 94 mm[Hg] 94 mm[Hg] MEDGEN (S t pressure [facility]) Systolic blood 160 mm[Hg] 160 mm[Hg] MEDGEN ([facility]) Body weight 212 lb 212 lb MEDGEN ([facility]) Body height 68 in in [facility] ([facility]) Body mass index 32.5 kg/m2 32.5 kg/m2 MEDGEN (S t (BMI) [Ratio] [facility]) Diastolic blood 88 mm[Hg] 88 mm[Hg] MEDGEN (S t pressure [facility]) Systolic blood 158 mm[Hg] 158 mm[Hg] MEDGEN ([facility]) Body weight 214 lb 214 lb [facility] ([facility]) [facility] Body mass index 32.5 kg/m2 32.5 kg/m2 MEDGEN (S t (BMI) [Ratio] [facility]) Diastolic blood 88 mm[Hg] 88 mm[Hg] MEDGEN (S t [facility]) Systolic blood 158 mm[Hg] 158 mm[Hg] MEDGEN ([facility]) Body weight 214 lb 214 lb MEDGEN ([facility]) Body height 68 in in MEDGEN ([facility]) Body mass index 32.5 kg/m2 32.5 kg/m2 MEDGEN (S t (BMI) [Ratio] [facility]) Diastolic blood 98 mm[Hg] 98 mm[Hg] MEDGEN (S t pressure [facility]) Systolic blood 160 mm[Hg] 160 mm[Hg] MEDGEN ([facility]) Body weight 214 lb 214 lb MEDGEN ([facility]) Body height 68 in in [facility] ([facility]) Body mass index 32.5 kg/m2 32.5 kg/m2 MEDGEN (S t (BMI) [Ratio] [facility]) Diastolic blood 98 mm[Hg] 98 mm[Hg] MEDGEN (S pressure [facility]) Systolic blood 160 mm[Hg] 160 mm[Hg] MEDGEN ([facility]) Body weight 214 lb 214 lb [facility] Body height 68 in in [facility] ([facility]) Body mass index 31.9 kg/m2 31.9 kg/m2 MEDGEN (S t (BMI) [Ratio] [facility]) Diastolic blood 100 mm[Hg] 100 mm[facility]] [facility] Systolic blood 170 mm[Hg] 170 mm[Hg] MEDGEN ([facility]) Body weight 210 lb 210 lb [facility] Body height 68 in in [facility] ([facility]) Body mass index 31.9 kg/m2 31.9 kg/m2 MEDGEN (S t (BMI) [Ratio] [facility]) Diastolic blood 100 mm[Hg] 100 mm[Hg] [facility] ([facility]) Systolic blood 170 mm[Hg] 170 mm[Hg] [facility] ([facility]) Body weight 210 lb 210 lb [facility] ([facility]) Body height 68 in in [facility] ([facility]) Body mass index 31.9 kg/m2 31.9 kg/m2 [facility] (S t (BMI) [Ratio] [facility]) Diastolic blood 88 mm[Hg] 88 mm[Hg] [facility] ([facility]) Systolic blood 142 mm[Hg] 142 mm[Hg] [facility] ([facility]) Body weight 210 lb 210 lb [facility] ([facility]) Body height 68 in in [facility] ([facility]) Body mass index 31.9 kg/m2 31.9 kg/m2 [facility] (S t (BMI) [Ratio] [facility]) Diastolic blood 88 mm[Hg] 88 mm[Hg] [facility] (S t pressure [facility]) Systolic blood 142 mm[Hg] 142 mm[Hg] [facility] ([facility]) Body weight 210 lb 210 lb [facility] ([facility]) Body height 68 in 68 in [facility] ([facility]) Body weight 90.666411 90.585789 kg [facility] hs Measured kg [facility] Body temperature 36.910455 [id number] [facility] Respiratory rate 17 /min 17 /min [facility] Oxygen saturation 98 % 98 % [facility] in Arterial blood [facility] by Pulse oximetry Heart rate 51 /min 51 /min [facility] Body height 172.148579 172.750329 cm [facility] Diastolic blood 73 mm[Hg] 73 mm[Hg] [facility] pressure [facility] Systolic blood 167 mm[Hg] 167 mm[Hg] [facility] Body mass index 30.4 kg/m2 30.4 kg/m2 [facility] (BMI) [Ratio] [facility] Body mass index 31.6 kg/m2 31.6 kg/m2 [facility] (S t (BMI) [Ratio] [facility]) Diastolic blood 80 mm[Hg] 80 mm[Hg] [facility] pressure [facility]) Systolic blood 150 mm[Hg] 150 mm[Hg] [facility] ([facility]) Body weight 208 lb 208 lb [facility] ([facility]) Body height 68 in 68 in [facility] ([facility]) Body mass index 31.6 kg/m2 31.6 kg/m2 [facility] (S t (BMI) [Ratio] [facility]) Diastolic blood 80 mm[Hg] 80 mm[Hg] [facility] (S t [facility]) Systolic blood 150 mm[Hg] 150 mm[Hg] [facility] ([facility]) Body weight 208 lb 208 lb [facility] ([facility]) Body height 68 in in [facility] ([facility]) Body mass index 31 kg/m2 31 kg/m2 [facility] (S t (BMI) [Ratio] [facility]) Diastolic blood 100 mm[Hg] 100 mm[Hg] [facility] (S t pressure [facility]) Systolic blood 180 mm[Hg] 180 mm[Hg] [facility] ([facility]) Body weight 204 lb 204 lb [facility] ([facility]) Body height 68 in in [facility] ([facility]) Body mass index 31 kg/m2 31 kg/m2 [facility] (S t (BMI) [Ratio] [facility], ) Diastolic blood 100 mm[Hg] 100 mm[Hg] [facility] (S t pressure [facility]) Systolic blood 180 mm[Hg] 180 mm[Hg] [facility] ([facility]) Body weight 204 lb 204 lb [facility] ([facility]) Body height 68 in [facility] ([facility]) Body mass index 30.9 kg/m2 30.9 kg/m2 [facility] (S t (BMI) [Ratio] [facility], ) Diastolic blood 100 mm[Hg] 100 mm[Hg] [facility] (S t pressure [facility]) Systolic blood 180 mm[Hg] 180 mm[Hg] [facility] ([facility]) Body weight 203 lb 203 lb [facility] ([facility]) Body height 68 in [facility] ([facility]) Body mass index 30.9 kg/m2 30.9 kg/m2 [facility] (S t (BMI) [Ratio] [facility]) Diastolic blood 100 mm[Hg] 100 mm[Hg] [facility] (S t pressure [facility]) Systolic blood 180 mm[Hg] 180 mm[Hg] [facility] ([facility]) Body weight 203 lb 203 lb [facility] ([facility]) Body height 68 in in [facility] ([facility]) Body mass index 30.4 kg/m2 30.4 kg/m2 [facility] (S t (BMI) [Ratio] [facility], ) Diastolic blood 82 mm[Hg] 82 mm[Hg] [facility] (S t pressure [facility]) Systolic blood 140 mm[Hg] 140 mm[Hg] [facility] ([facility]) Body weight 200 lb 200 lb [facility] ([facility]) Body height 68 in 68 in [facility] ([facility]) Body mass index 30.4 kg/m2 30.4 kg/m2 [facility] (S t (BMI) [Ratio] [facility], ) Diastolic blood 82 mm[Hg] 82 mm[Hg] [facility] (S [facility]) Systolic blood 140 mm[Hg] 140 mm[Hg] [facility] ([facility]) Body weight 200 lb 200 lb [facility] ([facility]) Body height 68 in 68 in [facility] ([facility]) Heart rate 60 /min 60 /min [facility] ([facility]) Inhaled oxygen 99 % 99 % [facility] ([facility], ) Body mass index 30.1 kg/m2 30.1 kg/m2 [facility] (S t (BMI) [Ratio] [facility]) Diastolic blood 90 mm[Hg] 90 mm[Hg] [facility] ([facility]) Systolic blood 150 mm[Hg] 150 mm[Hg] [facility] ([facility]) Body weight 198 lb 198 lb [facility] ([facility]) Body height 68 in 68 in [facility] ([facility]) Heart rate 60 /min 60 /min [facility] ([facility]) Inhaled oxygen 99 % 99 % [facility] ([facility]) Body mass index 30.1 kg/m2 30.1 kg/m2 [facility] (S t (BMI) [Ratio] [facility], ) Diastolic blood 90 mm[Hg] 90 mm[Hg] [facility] (S t pressure [facility]) Systolic blood 150 mm[Hg] 150 mm[Hg] [facility] ([facility]) Body weight 198 lb 198 lb [facility] ([facility]) Body height 68 in in [facility] ([facility]) Body mass index 29.2 kg/m2 29.2 kg/m2 [facility] (S t (BMI) [Ratio] [facility]) Diastolic blood 72 mm[Hg] 72 mm[Hg] [facility] ([facility]) Systolic blood 130 mm[Hg] 130 mm[Hg] [facility] ([facility]) Body weight 192 lb 192 lb [facility] ([facility]) Body height 68 in in [facility] ([facility]) Body mass index 29.2 kg/m2 29.2 kg/m2 [facility] (S t (BMI) [Ratio] [facility]) Diastolic blood 72 mm[Hg] 72 mm[Hg] [facility] ([facility]) Systolic blood 130 mm[Hg] 130 mm[Hg] [facility] ([facility]) Body weight 192 lb 192 lb [facility] ([facility]) Body height 68 in in [facility] ([facility]) Body mass index 30 kg/m2 30 kg/m2 [facility] (S t (BMI) [Ratio] [facility]) Diastolic blood 80 mm[Hg] 80 mm[Hg] [facility] ([facility]) Systolic blood 140 mm[Hg] 140 mm[Hg] [facility] ([facility]) Body weight 197 lb 197 lb [facility] ([facility]) Body height 68 in in [facility] ([facility]) Body mass index 30 kg/m2 30 kg/m2 [facility] (S t (BMI) [Ratio] [facility]) Diastolic blood 80 mm[Hg] 80 mm[Hg] [facility] ([facility]) Systolic blood 140 mm[Hg] 140 mm[Hg] [facility] ([facility]) Body weight 197 lb 197 lb [facility] ([facility]) Body height 68 in in [facility] ([facility]) Body mass index 29.3 kg/m2 29.3 kg/m2 [facility] (S t (BMI) [Ratio] [facility], ) Diastolic blood 86 mm[Hg] 86 mm[Hg] [facility] (S t [facility]) Systolic blood 136 mm[Hg] 136 mm[Hg] [facility] ([facility]) Body weight 193 lb 193 lb [facility] ([facility]) Body height 68 in 68 in [facility] ([facility]) Body mass index 29.3 kg/m2 29.3 kg/m2 [facility] (S t (BMI) [Ratio] [facility], ) Diastolic blood 86 mm[Hg] 86 mm[Hg] [facility] (S t [facility]) Systolic blood 136 mm[Hg] 136 mm[Hg] [facility] ([facility]) Body weight 193 lb 193 lb [facility] ([facility]) Body height 68 in 68 in [facility] ([facility]) Body mass index 30.1 kg/m2 30.1 kg/m2 [facility] (S t (BMI) [Ratio] [facility], ) Diastolic blood 80 mm[Hg] 80 mm[Hg] [facility] (S t [facility]) Systolic blood 140 mm[Hg] 140 mm[Hg] [facility] ([facility]) Body weight 198 lb 198 lb [facility] ([facility]) Body height 68 in 68 in [facility] ([facility]) Body weight 198 lb 198 lb [facility] ([facility]) Body height 68 in 68 in [facility] ([facility]) Body mass index 30.1 kg/m2 30.1 kg/m2 [facility] (S t (BMI) [Ratio] [facility], ) Diastolic blood 80 mm[Hg] 80 mm[Hg] [facility] (S t pressure [facility]) Systolic blood 140 mm[Hg] 140 mm[Hg] [facility] ([facility]) Body mass index 30.1 kg/m2 30.1 kg/m2 [facility] (S t (BMI) [Ratio] [facility], ) Diastolic blood 84 mm[Hg] 84 mm[Hg] [facility] (S t pressure [facility] ) Systolic blood 140 mm[Hg] 140 mm[Hg] [facility] ([facility]) Body weight 198 lb 198 lb [facility] ([facility]) Body height 68 in 68 in [facility] ([facility]) Body mass index 30.1 kg/m2 30.1 kg/m2 [facility] (S t (BMI) [Ratio] [facility], ) Diastolic blood 84 mm[Hg] 84 mm[Hg] [facility] (S t pressure [facility]) Systolic blood 140 mm[Hg] 140 mm[Hg] [facility] ([facility]) Body weight 198 lb 198 lb [facility] ([facility]) Body height 68 in in [facility] ([facility]) Body height 68 in 68 in [facility] ([facility]) Body mass index 30.1 kg/m2 30.1 kg/m2 [facility] (S t (BMI) [Ratio] [facility], ) Diastolic blood 90 mm[Hg] 90 mm[Hg] [facility] (S t pressure [facility]) Systolic blood 120 mm[Hg] 120 mm[Hg] [facility] ([facility]) Body weight 198 lb 198 lb [facility] ([facility]) Body mass index 30.1 kg/m2 30.1 kg/m2 [facility] (S t (BMI) [Ratio] [facility], ) Diastolic blood 90 mm[Hg] 90 mm[Hg] [facility] (S t pressure [facility]) Systolic blood 120 mm[Hg] 120 mm[Hg] [facility] ([facility]) Body weight 198 lb 198 lb [facility] ([facility]) Body height 68 in 68 in [facility] ([facility]) Patient Treatment Plan of Care Planned Activity Planned Date Details Description Data Source (s) carbamide peroxide 65 [facility] MG/ML ic Solution Jolon
[2019-12-22] MEDS ORDERED: SODIUM CHLORIDE 1,000 ML IV SCH (23:45)
--- NOTE | 2019-12-23 00:37 | HP ---
CHIEF COMPLAINT: I think I fell at home PCP: Dr. Morillo HISTORY OF PRESENT ILLNESS: 84yo M with PMHx of HTN and CAD who presented with choking and an unwitnessed syncopal episode. Patient is forgetful so full information was gathered from daughter Brianna [phone]. Patient was at home when he fell in his kitchen and hit is head. Patient remembers that he fell and hit his head, but he is unable to recall why he fell or for how long he was lying on the floor. Patient also had an episode of choking on a piece of steak where his daughter preformed the Heimlich maneuver. Patient said that his head hurts where he hit it and that he had a small bit of vomiting earlier today, but otherwise he is feeling his normal self - denied headaches, nausea, diarrhea, constipation, dysuria, polyuria. ER course was notable for: (1) EKG showing bradycardia with premature atrial complexes (2) negative orthostatics (166/80 P55 --> 176/74 P68) (3) CT head, neck CT, chest CT and CXR unremarkable for acute pathology Recent Travel: none PAST MEDICAL HISTORY: as per HPI PAST SURGICAL HISTORY: none reported per patient Family History: unable to recall Social History: Smokin-8 cigs/day for >50 years Alcohol: occasionally Drugs: denied Work: [employer] in the [employer] [place] Home: has his own apartment at the [facility] living [facility], has an aid with him daily 9am - 2.30pm Allergies No Known Allergies Allergy (Verified 12/22/19 13:45) HOME MEDICATIONS: patient and daughter unsure of home meds - needs med rec with either [facility] pharmacy or assisted living facility REVIEW OF SYSTEMS as per [facility] PHYSICAL EXAMINATION Vital Signs - 24 hr 12/22/19 12/22/19 12/23/19 13:46 20:15 00:02 Temperature 98.1 F Pulse Rate 80 Pulse Rate [ 78 69 Right] Respiratory 18 18 18 Rate Blood Pressure 114/84 Blood Pressure 124/77 180/86 H [Right Arm] O2 Sat by Pulse 100 100 99 Oximetry (%) GENERAL: M, appears stated age, average to overweight body habitus, AAOx2 (thinks its 2011) showing no signs of acute distress, active and interactive, friendly, talkative and smiling HEAD: Normal with no signs of trauma, relatively good dentition given age with dentures EYES: PERRL, direct and consensual pupillary reflexes intact bilaterally, extraocular movements intact bilaterally, sclera white EARS, NOSE, THROAT: Mildly dry mucous membranes NECK: No lymphadenopathy noted LUNGS: CTAB HEART: RRR, normal S1 and S2 without murmur ABDOMEN: Soft, nontender, protuberant, hyperactive bowel sounds EXTREMITIES: 2+ radial and dorsalis pedis pulses, warm to touch bilaterally, nontender to palpation, no peripheral edema appreciated, no active lesions or ulcers noted on feet bilaterally including interdigital web spaces NEUROLOGICAL: Cranial nerves II-XII grossly intact. Normal speech with symmetricalfacial movements. Sensation intact bilaterally PSYCHIATRIC: Cooperative and interactive, responds appropriately but very forgetful. Good eye contact. Good mood and affect congruent with stated mood SKIN: no rashes or lesions noted Abnormal Lab Results 12/22/19 12/22/19 12/22/19 14:50 14:50 14:50 MCHC 31.6 L RDW 16.8 H PT with INR 13.80 H INR 1.17 H Potassium 5.8 H Chloride 109 H Anion Gap 5 L AST 54 H Urine Protein Urine Ketones 12/22/19 12/22/19 15:35 19:20 MCHC RDW PT with INR INR Potassium Chloride 113 H Anion Gap 7 L AST Urine Protein 1+ H Urine Ketones Trace H ASSESSMENT/PLAN: 84yo M with PMHx of HTN and CAD who presented with choking and an unwitnessed syncopal episode. ED workup was remarkable for an EKG showing bradycardia, and patient was admitted for further syncopal workup. #Syncope likely 2/2 to bradycardia due to dehydration, medication-induced, other cardiogenic cause, or neurogenic cause - cardiology consulted - neurology consulted for further eval of syncope and possible diagnosis for approx 2 month history of AMS and continued forgetfulness - fall and seizure precautions ordered - home meds: patient and daughter unaware of current home meds, patient said his pharmacy is [facility]. Need med rec from either pharmacy or assisted living facility as some meds could cause bradycardia and/or syncope such as BB. - PT consulted - gentle IVFs for rehydration #Choking on stake - etiology unclear - aspiration precautions ordered - speech and swallow eval ordered - GI consulted #FEN - one bag of 50cc/h NS - replete lytes PRN - NPO until s/p speech and swallow eval #PPX - DVT: lovenox #Dispo: Telemetry Family Medical History Family History: As Documented Visit type - Medication Review Med list reviewed for High Risk Meds patients 65 and older: No - Emergency Visit Emergency Visit: Yes ED Registration Date: 12/22/19 Care time: The patient presented to the Emergency Department on the above date and was hospitalized for further evaluation of their emergent condition. - New Patient This patient is new to me today: Yes Date on this admission: 12/23/19 - Critical Care Critical Care patient: No ATTENDING PHYSICIAN STATEMENT I saw and evaluated the patient. I reviewed the resident's note and discussed the case with the resident. I agree with the resident's findings and plan as documented. SUBJECTIVE: OBJECTIVE: ASSESSMENT AND PLAN:
[2019-12-23 07:44] LABS: BASO % 0.7 % (0-2.0); EOS % 2.5 % (0-4.5); HEMATOCRIT 37.5 % (35.4-49); HEMOGLOBIN 12.1 GM/dL (11.7-16.9); LYMPH % 21.3 % (8-40); MCH 26.5 pg (25.7-33.7); MCHC 32.2 g/dl (32.0-35.9); MEAN CELL VOLUME 82.4 fl (80-96); MEAN PLT VOLUME 10.1 fl (7.5-11.1); MONO % 7.4 % (3.8-10.2); NEUT % 68.1 % (42.8-82.8); PLATELET COUNT 186 K/MM3 (134-434); RBC 4.55 M/mm3 (4.00-5.60); WHITE BLOOD COUNT 8.1 K/mm3 (4.0-10.0)
[2019-12-23 08:09] LABS: ALBUMIN 3.7 g/dl (3.4-5.0); BILIRUBIN,TOTAL 1.2 mg/dL (0.2-1); BLOOD UREA NITROGEN 13.3 mg/dL (7-18); CALCIUM 9.6 mg/dL (8.5-10.1); CREATININE 0.9 mg/dL (0.55-1.3); MAGNESIUM 2.3 mg/dL (1.8-2.4); PHOSPHOROUS 2.4 mg/dL (2.5-4.9); POTASSIUM 3.9 mmol/L (3.5-5.1)
--- NOTE | 2019-12-23 09:27 | EKG ---
Test Reason : Blood Pressure : / mmHG Vent. Rate : 046 BPM Atrial Rate : 046 BPM P-R Int : 192 ms QRS Dur : 104 ms QT Int : 440 ms P-R-T Axes : 059 -29 046 degrees QTc Int : 385 ms SINUS BRADYCARDIA WITH PREMATURE ATRIAL COMPLEXES CANNOT RULE OUT ANTERIOR INFARCT , AGE UNDETERMINED ABNORMAL ECG WHEN COMPARED WITH ECG OF 30-OCT-2019 09:11, PREMATURE ATRIAL COMPLEXES ARE NOW PRESENT VENT. RATE HAS DECREASED BY 29 BPM T WAVE INVERSION NOW EVIDENT IN LATERAL LEADS Confirmed by MD DURGA, JUSTICE ([id number]) on 12/23/2019 9:27:26 AM Referred By: Confirmed By:JUSTICE CALIXTO MD
--- NOTE | 2019-12-23 09:53 | CON.CARD ---
Consult Consult Specialty:: Cardiology Referred by:: Hospitalist Service Reason for Consultation:: Cardiac evaluation - History of Present Illness Chief Complaint: Syncope History of Present Illness: Patient is an 84 year old male with underlying history of HTN and CAD who presented with choking and unwitnessed syncope [facility] at the [facility] passed out in the kitchen. According to medical record, he had recalled the fall but did not know why he fell or how long he had been on the floor. He apparently had choked on a piece of steak and his daughter performed the Heimlich maneuver. Currently, he denies chest pain, shortness of breath or palpitations. He denies fever or chills. He denies headache or dizziness. Denies nausea, vomiting, diarrhea or abdominal pain. - History Source History Provided By: Medical Record Limitations to Obtaining History: Language Barrier - Past Medical History Cardio/Vascular: Yes: CAD, HTN, Hyperlipdemia - Smoking History Smoking history: Current every day smoker Have you smoked in the past 12 months: Yes Aproximately how many cigarettes per day: 3 Home Medications - Allergies Allergies/Adverse Reactions: Allergies Allergy/AdvReac Type Severity Reaction Status Date / Time No Known Allergies Allergy Verified 12/22/19 13:45 - Home Medications Home Medications: Ambulatory Orders Amlodipine Besylate [Norvasc -] 10 mg PO DAILY #30 tablet 10/31/19 Lisinopril [Prinivil -] 40 mg PO DAILY #30 tablet 10/31/19 Metoprolol Succinate 50 mg PO DAILY 12/23/19 Omeprazole 20 mg PO DAILY 12/23/19 Tamsulosin HCl [Flomax] 0.4 mg PO DAILY 12/23/19 Family Medical History Family History: Unable to Obtain Review of Systems - Review of Systems Constitutional: denies: Chills, Fever Cardiovascular: denies: Chest Pain, Palpitations, Shortness of Breath Respiratory: denies: Cough, Hemoptysis, Orthopnea, PND, SOB, SOB on Exertion Musculoskeletal: denies: Back Pain, Joint Pain Neurological: reports: Syncope. denies: Dizziness, Headache, Seizure Vital Signs: Vital Signs Temperature 98.0 F 12/23/19 06:19 Pulse Rate 64 12/23/19 06:19 Respiratory Rate 19 12/23/19 06:19 Blood Pressure 170/81 12/23/19 06:19 O2 Sat by Pulse Oximetry (%) 100 12/23/19 06:19 HENT: Yes: Atraumatic Neck: Yes: Supple Respiratory: Yes: CTA Bilaterally Gastrointestinal: Yes: Normal Bowel Sounds, Soft. No: Tenderness Cardiovascular: Yes: Regular Rate and Rhythm JVD: No PMI: Non-Displaced Heart Sounds: Yes: S1, S2. No: Gallop Edema: No - Other Data Labs, Other Data: CBC, BMP 12/23/19 05:38 12/23/19 05:38 INR, PTT INR 1.17 (0.83-1.09) H 12/22/19 14:50 Troponin, BNP 12/22/19 14:50 Troponin I < 0.02 Sinus bradycardia, APC and T abnormality in lateral leads Imaging - Results Chest X-ray: Report Reviewed (Unremarkable) Cat Scan: Report Reviewed (Head CT unremarkable Chest CT: nodules, COPD, aneurysmal dilation of ascending thoracic aorta) Ultrasound: Report Reviewed (Carotid Doppler: small plaques) EKG: Report Reviewed Problem List - Problems (1) HTN (hypertension) Code(s): I10 - ESSENTIAL (PRIMARY) HYPERTENSION (2) CAD (coronary artery disease) Code(s): I25.10 - ATHSCL HEART DISEASE OF [place] CORONARY ARTERY W/O ANG PCTRS (3) Orthostatic hypotension Code(s): I95.1 - ORTHOSTATIC HYPOTENSION (4) Syncope Code(s): R55 - SYNCOPE AND COLLAPSE Qualifiers: Syncope type: unspecified Qualified Code(s): R55 - Syncope and collapse (5) Stented coronary artery Code(s): Z95.5 - PRESENCE OF CORONARY ANGIOPLASTY IMPLANT AND GRAFT Assessment/Plan 1. Syncope ? etiology ? vasovagal ? orthostasis, doubt arrhythmia 2. CAD s/p PCI, angina pectoris 3. HTN PLAN: 1. Continue Lisinopril 40 mg QD and Amlodipine 10 mg QD. Avoid AV fe agents. 2. ASA 81 mg QD 3. Echocardiography was done in October 2019. Report reviewed 4. Telemetry monitoring Further plans are to follow Arsh Solis MD
[2019-12-23] MEDS ORDERED: amLODIPine BESYLATE 5 MG TABLET (FP) ONE (09:55)
[2019-12-23] MEDS ORDERED: LISINOPRIL 20 MG TABLET (FP) ONE (09:55)
[2019-12-23] MEDS ORDERED: ENOXAPARIN NA (PORCINE) 40 MG/0.4 ML DISP.SYRIN SQ ONE (09:56)
[2019-12-23] MEDS: ENOXAPARIN NA (PORCINE) 40 MG/0.4 ML DISP.SYRIN SQ SCH (10:02)
[2019-12-23] MEDS: amLODIPine BESYLATE 5 MG TABLET (FP) PO SCH (10:02)
[2019-12-23] MEDS: LISINOPRIL 20 MG TABLET (FP) PO SCH (10:02)
--- NOTE | 2019-12-23 10:39 | CONSULT ---
Admitting History and Physical - Admission History of Present Illness: Per EMR- 84yo M with PMHx of HTN and CAD who presented with choking and an unwitnessed syncopal episode. Patient is forgetful so full information was gathered from daughter Brianna [phone]. Patient was at home when he fell in his kitchen and hit is head. Patient remembers that he fell and hit his head, but he is unable to recall why he fell or for how long he was lying on the floor. Patient also had an episode of choking on a piece of steak where his daughter preformed the Heimlich maneuver. Patient said that his head hurts where he hit it and that he had a small bit of vomiting earlier today, but otherwise he is feeling his normal self - denied headaches, nausea, diarrhea, constipation, dysuria, polyuria. ER course was notable for: (1) EKG showing bradycardia with premature atrial complexes (2) negative orthostatics (166/80 P55 --> 176/74 P68) (3) CT head, neck CT, chest CT and CXR unremarkable for acute pathology Selected Entries 12/23/19 12/23/19 12/23/19 00:02 03:16 06:19 Temperature 97.8 F 98.0 F Pulse Rate [ 69 65 64 Right] Blood Pressure 180/86 H 152/82 170/81 [Right Arm] Laboratory Tests 12/22/19 12/23/19 19:45 05:38 WBC 8.1 COVID-19 (JUAN C) Not detected NPO This is my first consult with this pt Pt's daughter reports pt choked on meat, requiring Heimlich. Afterwards, each time that he took a drink, he vomited. She also reports cognitive periods of confusion over last 2 months, calling her that he was lost. No changes in speech /swallowing besides what was reported History Source: Family Member Limitations to Obtaining History: Clinical Condition - Past Medical History Cardiovascular: Yes: CAD, HTN, Hyperlipdemia - Smoking History Smoking history: Current every day smoker Have you smoked in the past 12 months: Yes Aproximately how many cigarettes per day: 3 History - Admission Reason For Visit: SYNCOPE - Diagnostics X-ray: Report Reviewed CT Scan: Report Reviewed - General Mental Status: Awake and Alert, Able to Follow Commands Attention: Intact Ability to Follow Directions: Excellent Head/Neck Control: WFL - Hearing Hearing: Functional Speech Evaluation - Communication Primary Language: KITTITIAN Communication: Yes: Within Normal Limits Oral Expression Ability: Yes: No Impairment - Speech Production Able to Make Needs Known: Yes: WNL Intelligibility: Yes: WNL - Speech Characteristics Voice Loudness: Normal Voice Pitch: Yes: Normal Voice Phonatory-based Quality: Yes: Normal Speech Pattern: Normal Speech Clarity: < 100% Nasal Resonance: Normal Articulation: Yes: Precise - Language/Auditory Comprehension Follows: Yes: 1 Stage Simple Commands - Language/Verbal Expression Functional Communication Status: Yes: WNL - Swallow Evaluation/Bedside Assessment Current Nutritional Intake: NPO Oral Secretions: Yes: WFL Dentition: Yes: Adequate Facial Symmetry at Rest: Symmetrical Facial Symmetry on Retraction: Symmetrical Facial Movement: Controlled Sensation: Normal Against Resistance Opening: Normal Against Resistance Closing: Normal Pucker Lips: Normal Lingual Movement: Normal, Symmetric Lingual Speed of Movement: Normal Lingual Movement Strgth Against Opposition: Normal Lingual Movement Characteristics: Normal Laryngeal Elevation: WFL Laryngeal Movement: Able to Palpate Rate of Intake: WFL Labial Seal: WFL Oral Prep Time: WFL A-P Transit: WFL Timing of Swallow: WFL Coughing/Throat Clear: No Change in Voice: No Recommendations - Speech Evaluation, Impression/Plan Impression: Brisk swallow with water. Choking incident r/o stasis in pharynx/esophageal dysphagia, possible meat impaction that cleared. Reviewed with GI who would like pt on clear liquids with plan for EGD tomorrow. MBS to follow, if indicated. - Dysphagia Impressions/Plan Dysphagia Impressions: Ongoing Evaluation *Silent aspiration: cannot be R/O at bedside Dysphagia Treatment Plan: Safe Rate, Elevate HOB during feed Recommendations: Neuro Consult (intermittent confusion reported over last 2 months), MBS w Esophagus - Recommendations Diet Consistency: Other (clear liquids per gi. Ensure clear.)
--- NOTE | 2019-12-23 11:39 | CON.NEURO ---
Consult Consult Specialty:: [facility] Referred by:: ER - History of Present Illness History of Present Illness: this is a very pleasant 84-year-old right-handed man with multiple medical problems including Coronary artery disease Osteoarthritis Hypertension Chronic low back pain Patient was at his usual status of health until yesterday when he came to the emergency room [facility] patient apparently choked on a piece of food patient lost consciousness with no seizure activity patient fell on the floor. No urinary incontinence no fecal incontinence. - History Source History Provided By: Medical Record Limitations to Obtaining History: Clinical Condition - Past Medical History Cardio/Vascular: Yes: CAD, HTN, Hyperlipdemia - Smoking History Smoking history: Current every day smoker Have you smoked in the past 12 months: Yes Aproximately how many cigarettes per day: 3 Home Medications - Allergies Allergies/Adverse Reactions: Allergies Allergy/AdvReac Type Severity Reaction Status Date / Time No Known Allergies Allergy Verified 12/22/19 13:45 - Home Medications Home Medications: Ambulatory Orders Amlodipine Besylate [Norvasc -] 10 mg PO DAILY #30 tablet 10/31/19 Lisinopril [Prinivil -] 40 mg PO DAILY #30 tablet 10/31/19 Family Medical History Family History: Unremarkable Review of Systems - Review of Systems Neurological: reports: Dizziness, Headache, Incoordination Physical Exam-Neuro Vital Signs: Vital Signs Temperature 98.0 F 12/23/19 06:19 Pulse Rate 64 12/23/19 06:19 Respiratory Rate 19 12/23/19 06:19 Blood Pressure 170/81 12/23/19 06:19 O2 Sat by Pulse Oximetry (%) 100 12/23/19 06:19 Constitutional: Yes: Well Nourished Neck: Yes: WNL Cardiovascular: Yes: WNL Labs: CBC, BMP 12/23/19 05:38 12/23/19 05:38 INR, PTT INR 1.17 (0.83-1.09) H 12/22/19 14:50 - Neuro Exam Level Of Consciousness: Yes: Oriented to Person, Oriented to Place Eyes: Yes: PERRLA Speech: WNL Dominant Hand: Right Cranial Nerves II-XII Intact: Yes Gag: Present DTR's: 1+ Left Bicep, 1+ Right Bicep, 1+ Left Tricep, 1+ Right Tricep Response to light touch: Normal Response to pain prick: Normal Response to temperature: Normal Motor Strength: 3/5: Left Arm, Right Arm, Left Leg, Right Leg Gait: Deferred Imaging - Results Cat Scan: Image Reviewed Problem List - Problems (1) Choking sensation Code(s): R09.89 - OTH SYMPTOMS AND SIGNS INVOLVING THE CIRC AND RESP SYSTEMS (2) Syncope Code(s): R55 - SYNCOPE AND COLLAPSE Qualifiers: Syncope type: unspecified Qualified Code(s): R55 - Syncope and collapse Assessment/Plan 1. Seizure precautions. 2. Fall precautions. 3. Carotid Doppler. 4. Check orthostasis every shift. 5. Baby aspirin Thank you very much for allowing me to be part of this patient's neurological care. Sarai Lester M.D. [facility] [phone]
--- NOTE | 2019-12-23 14:52 | CON.GI ---
Consult Consult Specialty:: GI Referred by:: Hospitalist Service Reason for Consultation:: Dysphagia - History of Present Illness Chief Complaint: Passed out last night History of Present Illness: 84M. Daughter present at bedside. She aided in translation as well. Progressive confusion over the last few months. Was taken out to dinner. choked on steak, heimlich was performed. Steak was dislodged. Continued to vomit (liquid that he drank) subsequently whenever given something to drink. That resolved. Found at his assisted living passed out in kitchen. Intermittent dysphagia symptoms to solids, not to liquids. Able to drink cup of water during my evaluation this morning and able to drink cup of water during evaluation by aMsha Pack this afternoon. CT scan of the chest pfailed to reveal dilated esophagus. Subjectively his daughter feels he has lost weight. He has never had EGD or colonoscopy. There is no family history of colorectal cancer or other GI malignancy. 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 Place of : Other ([facility]) History of Recent Travel: No Home Medications - Allergies Allergies/Adverse Reactions: Allergies Allergy/AdvReac Type Severity Reaction Status Date / Time No Known Allergies Allergy Verified 12/22/19 13:45 - Home Medications Home Medications: Ambulatory Orders Amlodipine Besylate [Norvasc -] 10 mg PO DAILY #30 tablet 10/31/19 Lisinopril [Prinivil -] 40 mg PO DAILY #30 tablet 10/31/19 Metoprolol Succinate 50 mg PO DAILY 12/23/19 Omeprazole 20 mg PO DAILY 12/23/19 Tamsulosin HCl [Flomax] 0.4 mg PO DAILY 12/23/19 Family Medical History Family History: Unremarkable Other Family History: No family history of colon cancer or other GI malignancy Review of Systems - Review of Systems Constitutional: denies: Chills Cardiovascular: denies: Chest Pain Respiratory: denies: Cough, SOB Gastrointestinal: reports: Vomiting. denies: Abdominal Pain, Melena, Nausea, Vomiting Blood Physical Exam-GI Vital Signs: Vital Signs Temperature 97.8 F 12/23/19 13:32 Pulse Rate 57 L 12/23/19 13:32 Respiratory Rate 18 12/23/19 13:32 Blood Pressure 133/62 12/23/19 13:32 O2 Sat by Pulse Oximetry (%) 99 12/23/19 13:32 Constitutional: Yes: Calm Eyes: No: Sclera Icterus Cardiovascular: Yes: Regular Rate and Rhythm Respiratory: Yes: CTA Bilaterally Gastrointestinal Inspection: No: Distention ...Auscultate: Yes: Normoactive Bowel Sounds ...Palpate: No: Soft, Tenderness ...Percussion: No: Tympanitic Edema: No (No LE edema) Neurological: Yes: Alert, Oriented Labs: CBC, BMP 12/23/19 05:38 12/23/19 05:38 INR, PTT INR 1.17 (0.83-1.09) H 12/22/19 14:50 Imaging - Results Cat Scan: Report Reviewed Problem List - Problems (1) Choking sensation Assessment/Plan: Question if Mr. Harrington experienced an esophageal food impaction that has since resolved. He is able to tolerate liquids and has had no further vomiting episodes. Advise: Protonix 40mg IVPB daily Clear liquid diet for now so as not to precipitate another food impaction Evaluation of lung findings noted on Chest CT per medical team Medical clearance given syncopal episode prior to upper endoscopy Discussed possible upper endoscopy +/- esophageal dilation for tomorrow if medically cleared. Discussed potential risks of the procedure like but not limited to bleeding, perforation requiring surgery to repair, infection, sedation medication effects all of which could be potentially life threatening. Mr. Harrington's daughter was in agreement to have the procedure performed as was Mr. Harrington (Mr. Harrington, however, is alert and priented only partially to person, partially to place and time and I feel could not give informed consent on his own). Code(s): R09.89 - OTH SYMPTOMS AND SIGNS INVOLVING THE CIRC AND RESP SYSTEMS
--- NOTE | 2019-12-23 15:56 | PN ---
Teaching Attending Note Name of Resident: Marianela Baxter ATTENDING PHYSICIAN STATEMENT I saw and evaluated the patient. I reviewed the resident's note and discussed the case with the resident. I agree with the resident's findings and plan as documented. SUBJECTIVE: lead database developer phone is not available this am . with team's help, antoni denied any SOB, CP, and denied any dysphagea . he remembers falling but no details. He admits to living at home [place] in [place]. OBJECTIVE: NAD, awake, alert, cooperative, knows age, location. MMM CV: RRR, 3/6 SM At RUSB , no radiation to carotids. No JVD Lungs: CTAB. Abd: soft, NT, Nd , NL BS. Ext: No edema , no erythema on upper or lower extremities. Neck: no LAP in neck, parotid glands are not enlarged. submandibular glands are not palpated. No Lymphadenopathy in axillary areas ASSESSMENT AND PLAN: Very pleasant 84 y/o gentleman with h/o CAD, s/p stents, HTN who presented with fall/? syncope, and a sensation of food impaction . 1- Unwitnessed syncope Vs mechanical fall : can't r/o syncope. no prthostatic drop in VS with position change. EKG with sinus shaheed, no blocks. TWI in V6, U wave seen . NO Cp. no signs of ACS. - monitor on tele - Echo to evaluate the presence of pericardial effusion . Unlikely contributing to presentation if really present 2- Food impaction /now resolved . dysphagea . No sx at this point. consulted speech and Recs are appreciated. - MBS - for EGD tomorrow . - pre-op risk stratification : the patient has no active signs or sx of ACS/arrhythmias/CHF. EKG reviewed. the procedure itself is low risk procedure. the patient is independent in his ADLS , but does not have METS > 10 If no arrhythmias over night, and if echo shows no significant pericardial effusion, then patient will be at low clinical risk for tony-op cardiac complication for this low risk procedure ( EGD ). - clears for now 3- HTN. resume his home lisinopril and norvasc and reevaluate. Will confirm his out pt meds 4- hypophosphatemia : replete 5- Incidental findings: - R parotid gland density : out pt f/u with ENT -Pleural based nodules: out pt f/u with pulm - dilated ascending Aorta : out pt monitoring with cario/vascular sx - possible pericardial effusion . Echo - Tracheal polyp : out pt f/u with pulm - pyuria : no UTI sx. follow urin cx. No need for Abx team will reach out to family for a base line and details . Meds to be confirmed
--- NOTE | 2019-12-23 16:08 | PN ---
Physical Exam: SUBJECTIVE:Patient seen and examined in the ED, ptn was spoken with through a vietnamese/japanese official scientific informatics leader. Ptn was unable to remember accurately the events which brought him here. He denied any MALIK, changes in vision, CP, SoB, changes in bowel/bladder, changes in sensation. Spoke w/ daughter today at bedside. States this is ptn baseline as of 2 months ago. Denies any inciting event. 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 OBJECTIVE: Vital Signs Period Temp Pulse Resp BP Sys/Marcos Pulse Ox Last 24 Hr 97.8 F-98.0 F 51-78 17-20 124-180/62-86 97-100 GENERAL: The patient is awake, alert, in no acute distress, however has difficulty with his memory of recent events HEAD: Normal with no signs of trauma. EYES: PERRL, extraocular movements intact, sclera anicteric, conjunctiva clear. No ptosis. ENT: Oropharynx clear without exudates, moist mucous membranes. NECK: Trachea midline, full range of motion, supple. LUNGS: Breath sounds equal, clear to auscultation bilaterally, no wheezes, no crackles, no accessory muscle use. HEART: Regular rate and rhythm, S1, S2 without murmur, rub or gallop. ABDOMEN: Soft, nontender, nondistended, normoactive bowel sounds UPPER EXTREMITIES: Strength 5/5, Reflexes 2+ at elbows, well perfused, no edema LOWER EXTREMITIES: Strength 5/5, Reflexes 2+ knees b/l 2+ pulses, warm, well- perfused, no edema. NEUROLOGICAL: Cranial nerves II through XII grossly intact. Normal speech, gait not observed. PSYCH: Normal mood, normal affect. SKIN: Warm, dry, normal turgor, no rashes or lesions noted Laboratory Results - last 24 hr CBC, BMP 12/23/19 05:38 12/23/19 05:38 Active Medications Active Medications Generic Name Dose Route Start Last Admin Trade Name Freq PRN Reason Stop Dose Admin Amlodipine Besylate 10 mg 12/23/19 10:00 12/23/19 10:02 Norvasc - PO 10 mg DAILY BRIGIDA Administration Aspirin 81 mg 12/23/19 17:45 12/23/19 18:52 Asa - PO 81 mg DAILY BRIGIDA Administration Enoxaparin Sodium 40 mg 12/23/19 10:00 12/23/19 10:02 Lovenox - SQ Not Given DAILY BRIGIDA Lisinopril 40 mg 12/23/19 10:00 12/23/19 10:02 Prinivil PO 40 mg DAILY BRIGIDA Administration Pantoprazole Sodium 40 mg 12/23/19 17:45 Protonix Iv IVPB DAILY BRIGIDA ASSESSMENT/PLAN: 84yo M with PMHx of HTN and CAD who presented with choking and an unwitnessed syncopal episode. ED workup was remarkable for an EKG showing bradycardia, and patient was admitted for further syncopal workup. CT HEAD: There is generalized volume loss with moderate ventricular dilatation and extensive periventricular chronic microvascular ischemic disease changes. 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 Differential diagnosis includes a pleomorphic adenoma for which a nonemergent ENT consultation is suggested. CT CHEST: Mild COPD/emphysematous changes. Tiny bilateral pleural-based nodules measuring up to 4 mm which are nonspecific. No focal infiltrates are identified. The previous versus a tiny polyp along the right lateral wall of the trachea, just above the level of the keenan measuring 5 mm. 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 Mild cardiomegaly and minimal pericardial effusion. Large bilateral renal cysts, as described above. Scattered diverticula in included portion of the colon without evidence of acute diverticulitis. CXR: An acute process is not seen. EKG: SINUS BRADYCARDIA WITH PREMATURE ATRIAL COMPLEXES CANNOT RULE OUT ANTERIOR INFARCT , AGE UNDETERMINED WHEN COMPARED WITH ECG OF 30-OCT-2019 09:11, PREMATURE ATRIAL COMPLEXES ARE NOW PRESENT VENT. RATE HAS DECREASED BY 29 BPM T WAVE INVERSION NOW EVIDENT IN LATERAL LEADS UNWITNESSED SYNCOPE VS MECHANICAL FALL: R/O BRADYCARDIA 2/2 DEHYDRATION, MEDICATION INDUCED, CARDIOGENIC VS NEUROGENIC - Cardiology consulted - Neurology consulted -1. Seizure precautions. -2. Fall precautions. -3. Carotid Doppler. -4. Check orthostasis every shift. -5. Baby aspirin - EKG: New EKG shows increasing T-Wave Inversions, FU official read. - FU Echo to rule out pericardial effusion -Previous Echo 10/2019 show EF 60-65 w/o any abnormality - PT consulted - Gentle IVFs for rehydration EPISODE OF CHOKING: R/O DYSPHAGIA, STRICTURE - Continue aspiration precautions - Speech and Swallow: CLD 2/2 aspiration risk - GI consulted: -Upper endoscopy +/- esophageal dilation for tomorrow. NPO at Midnight -Protonix 40mg IVPB Daily - Pre-Op Stratification: -No active signs or sx of ACS/arrhythmias/CHF. EKG reviewed. EGD is a low risk procedure. The patient is independent in his ADLS, but does not have METS > 10 -If no arrhythmias over night, and if echo shows no significant pericardial effusion, then patient will be at low clinical risk for tony-op cardiac complication for this low risk procedure ( EGD ). 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 Possibly exposure to toxic chemicals HYPERTENSION -Elevated BP this morning -Norvasc 10mg started -Lisinopril 40mg started HYPOPHOSPHATEMIA -Repleted w/ Phos-Nak -FU Phos tomorrow PAROTID GLAD DENSITY -No risk of airway compromise -FU outpatient ENT DILATED ASCENDING AORTA -FU Outpatient TRACHEAL POLYP -FU Outpatient Pulm FEN - No standing fluids - Replete lytes PRN - Per GI: CLD, NPO @ midnight prior to EGD PPX - DVT: lovenox 40mg sq Dispo: Continue telemetry monitoring Visit type - Emergency Visit Emergency Visit: Yes ED Registration Date: 12/22/19 Care time: The patient presented to the Emergency Department on the above date and was hospitalized for further evaluation of their emergent condition. - New Patient This patient is new to me today: Yes Date on this admission: 12/23/19 - Critical Care Critical Care patient: No - Discharge Referral Referred to [facility] No - Medication Review Med list reviewed for High Risk Meds patients 65 and older: Yes ATTENDING PHYSICIAN STATEMENT I saw and evaluated the patient. I reviewed the resident's note and discussed the case with the resident. I agree with the resident's findings and plan as documented. SUBJECTIVE: OBJECTIVE: ASSESSMENT AND PLAN:
[2019-12-23] MEDS ORDERED: PANTOPRAZOLE SODIUM 40 MG VIAL IVPUSH SCH (17:45)
[2019-12-23] MEDS ORDERED: NAPH,MB-DB/K PH,MBDB POWDER PACKET PO ONE (17:59)
[2019-12-23] MEDS: ASPIRIN 81 MG CHEWABLE TABLETS PO SCH (18:52)
[2019-12-24 07:10] LABS: BASO % 0.5 % (0-2.0); EOS % 2.1 % (0-4.5); HEMATOCRIT 42.1 % (35.4-49); HEMOGLOBIN 13.3 GM/dL (11.7-16.9); LYMPH % 15.6 % (8-40); MCH 26.2 pg (25.7-33.7); MCHC 31.7 g/dl (32.0-35.9); MEAN CELL VOLUME 82.8 fl (80-96); NEUT % 75.8 % (42.8-82.8); PLATELET COUNT 179 K/MM3 (134-434); RBC 5.08 M/mm3 (4.00-5.60); RDW 16.7 % (11.9-15.9); WHITE BLOOD COUNT 8.2 K/mm3 (4.0-10.0)
[2019-12-24 07:17] LABS: INR 1.24 (0.83-1.09); PROTHROMBIN TIME (PATIENT) 14.7 SEC (9.7-13.0)
[2019-12-24 07:50] LABS: ALBUMIN 3.8 g/dl (3.4-5.0); BILIRUBIN,TOTAL 1.3 mg/dL (0.2-1); BLOOD UREA NITROGEN 12.6 mg/dL (7-18); CALCIUM 9.5 mg/dL (8.5-10.1); CREATININE 0.9 mg/dL (0.55-1.3); PHOSPHOROUS 2.5 mg/dL (2.5-4.9); POTASSIUM 3.7 mmol/L (3.5-5.1)
--- NOTE | 2019-12-24 08:34 | PDOC ---
Documentation entered by Héctor Rowan SCRIBE, acting as scribe for Madalyn Diallo MD. Madalyn Diallo MD: This documentation has been prepared by the Anum suarez Xhesika, SCRIBE, under my direction and personally reviewed by me in its entirety. I confirm that the documentation accurately reflects all work, treatment, procedures, and medical decision making performed by me. Attending Attestation - Resident Resident Name: [place] Live - ED Attending Attestation I have performed the following: I have examined & evaluated the patient, The case was reviewed & discussed with the resident, I agree w/resident's findings & plan, Exceptions are as noted - HPI HPI: 12/22/19 14:43 The patient is a 84 y/o male with a pmh of HTN and cad s/p stent placement at [facility] who [facility] the ED [facility] from [facility] for confusion x2 days. Per daughter the pt had a syncopal episode yesterday night. Daughter states she went to visit him yesterday and the pt seemed more confused than normal, he had not showered or eaten in 2 days. Daughter states the pt has been talking to his friend who several years ago. Daughter reports she was at dinner with the pt yesterday and he choked on steak. she had to do heimlick manuever, and he vomiting everything up. Pt states since then he has had a sensation that something is stuck in his throat and every time he eats he immediately vomits. Health aide found pt on ground this morning. Pt reports passing out but does not know when. no current complaints of abd pain. Allergies:NKDA PCP:Dr. Tobin - Physicial Exam PE: 12/24/19 08:32 (entered late documentaiton) awake alert lungs clear bilat heart rrr no mrg abd soft nt nd ext wwp. no edema. no calf tenderness. moves all four ext. no noted weakness. speech clear. - Medical Decision Making 12/22/19 08:33 84 yo male s/p choking episode, and syncope night prior found on floor, recent confusion. differentil includes stroke causing dysphagia, obstructive lesion, dehydration, intrabdominal process. plan ct a/p ct head labs ekg trop. pt pending ct results, and head ct. was signed out to oncoming colleague, pending [facility] admission for choking episode, dysphagia and syncope. Discharge - Discharge Information Problems reviewed: Yes Clinical Impression/Diagnosis: Choking sensation Syncope Qualifiers: Syncope type: unspecified Qualified Code(s): R55 - Syncope and collapse Vomiting Qualifiers: Vomiting type: unspecified Vomiting Intractability: unspecified Nausea presence: without nausea Qualified Code(s): R11.11 - Vomiting without nausea Condition: Good - Follow up/Referral - Patient Discharge Instructions - Post Discharge Activity
[2019-12-24] MEDS: amLODIPine BESYLATE 5 MG TABLET (FP) PO SCH (09:30)
[2019-12-24] MEDS: ASPIRIN 81 MG CHEWABLE TABLETS PO SCH (09:30)
[2019-12-24] MEDS: PANTOPRAZOLE SODIUM 40 MG VIAL IVPB SCH (09:30)
[2019-12-24] MEDS: ENOXAPARIN NA (PORCINE) 40 MG/0.4 ML DISP.SYRIN SQ SCH (09:30)
[2019-12-24] MEDS: LISINOPRIL 20 MG TABLET (FP) PO SCH (09:30)
--- NOTE | 2019-12-24 11:21 | PN ---
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, Physician History of Present Illness: Denies recurrent near or true syncope, await EGD to assess for dysphagia, food impaction, no arrhythmias on telemetry. - Current Medication List Current Medications: Active Medications Amlodipine Besylate (Norvasc -) 10 mg PO DAILY [facility] Last Admin: 12/24/19 09:30 Dose: 10 mg Documented by: Aspirin (Asa -) 81 mg PO DAILY [facility] Last Admin: 12/24/19 09:30 Dose: Not Given Documented by: Enoxaparin Sodium (Lovenox -) 40 mg SQ DAILY [facility] Last Admin: 12/24/19 09:30 Dose: Not Given Documented by: Lisinopril (Prinivil) 40 mg PO DAILY [facility] Last Admin: 12/24/19 09:30 Dose: 40 mg Documented by: Pantoprazole Sodium (Protonix Iv) 40 mg IVPB DAILY [facility] Last Admin: 12/24/19 09:30 Dose: 40 mg Documented by: - Objective Vital Signs: Vital Signs Temperature 98.8 F 12/24/19 04:57 Pulse Rate 85 12/24/19 04:57 Respiratory Rate 18 12/24/19 04:57 Blood Pressure 149/88 12/24/19 04:57 O2 Sat by Pulse Oximetry (%) 98 12/24/19 06:33 Constitutional: Yes: No Distress, Calm Neck: Yes: Supple Cardiovascular: Yes: Regular Rate and Rhythm Respiratory: Yes: Regular, CTA Bilaterally Gastrointestinal: Yes: Soft, Hypoactive Bowel Sounds Edema: No Labs: CBC, BMP 12/24/19 06:27 12/24/19 06:27 INR, PTT INR 1.24 (0.83-1.09) H 12/24/19 06:27 - ....Imaging EKG: Report Reviewed (Tele: NSR w/o pauses) Assessment/Plan Problem List - Problems (1) HTN (hypertension) Code(s): I10 - ESSENTIAL (PRIMARY) HYPERTENSION (2) CAD (coronary artery disease) Code(s): I25.10 - ATHSCL HEART DISEASE OF [place] CORONARY ARTERY W/O ANG PCTRS (3) Orthostatic hypotension Code(s): I95.1 - ORTHOSTATIC HYPOTENSION (4) Syncope Code(s): R55 - SYNCOPE AND COLLAPSE Qualifiers: Syncope type: unspecified Qualified Code(s): R55 - Syncope and collapse (5) Stented coronary artery Code(s): Z95.5 - PRESENCE OF CORONARY ANGIOPLASTY IMPLANT AND GRAFT Assessment/Plan Carotid US: No stenosis 1. Syncope 2/2 vasovagal referable to... 2. Food impaction/dysphagia 3. CAD s/p PCI, angina pectoris 4. HTN PLAN: 1. Continue Lisinopril 40 mg QD and Amlodipine 10 mg QD, and ASA 81 mg QD. Avoid AV fe agents. 2. F/u EGD 3. Echocardiography was done in October 2019. Report reviewed 4. Telemetry monitoring unrevealing thus far
[2019-12-24] MEDS ORDERED: SODIUM CHLORIDE 1,000 ML IV SCH (13:15)
--- NOTE | 2019-12-24 13:32 | PN ---
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: Selected Entries 12/23/19 12/24/19 12/24/19 18:10 04:55 04:57 Supper 25% Temperature 98.8 F Pulse Rate 85 Pulse Rate [ 85 Left side Sitting] Pulse Rate [ 102 H Left side Standing] Pulse Rate [ 76 Left side Supine] Blood Pressure 149/88 Blood Pressure 149/88 [Left side Sitting] Blood Pressure 136/68 [Left side Standing] Blood Pressure 167/103 H [Left side Supine] O2 Sat by Pulse 98 Oximetry (%) Oxygen Delivery Method 12/24/19 12/24/19 12/24/19 06:33 08:00 10:00 Supper Temperature 98.2 F Pulse Rate 77 Pulse Rate [ Left side Sitting] Pulse Rate [ Left side Standing] Pulse Rate [ Left side Supine] Blood Pressure 147/91 Blood Pressure [Left side Sitting] Blood Pressure [Left side Standing] Blood Pressure [Left side Supine] O2 Sat by Pulse 98 97 Oximetry (%) Oxygen Delivery Room Air Room Air Method Laboratory Tests 12/24/19 06:27 WBC 8.2 Pending EGD tomorrow. MBS for assessment of solids, as indicated
--- NOTE | 2019-12-24 14:43 | EKG ---
Test Reason : Blood Pressure : / mmHG Vent. Rate : 046 BPM Atrial Rate : 046 BPM P-R Int : 190 ms QRS Dur : 108 ms QT Int : 454 ms P-R-T Axes : 000 197 088 degrees QTc Int : 397 ms SINUS BRADYCARDIA WITH PREMATURE ATRIAL COMPLEXES RIGHT SUPERIOR AXIS DEVIATION ABNORMAL ECG WHEN COMPARED WITH ECG OF 22-DEC-2019 18:25, QUESTIONABLE CHANGE IN QRS AXIS NON-SPECIFIC CHANGE IN ST SEGMENT IN INFERIOR LEADS T WAVE INVERSION NOW EVIDENT IN ANTERIOR LEADS Confirmed by MD DURGA, JUSTICE ([id number]) on 12/24/2019 2:43:28 PM Referred By: Confirmed By:JUSTICE CALIXTO MD
--- NOTE | 2019-12-24 15:17 | PN ---
Physical Exam: SUBJECTIVE: Patient seen and examined today, spoken with through director of outreach. Endorses dizzyness/lightheadness. Denied MALIK, CP, SoB, N/V, changes in vision or changes in bowel/bladder. OBJECTIVE: Vital Signs Period Temp Pulse Resp BP Sys/Marcos Pulse Ox Last 24 Hr 97.2 F-98.8 F 65-103 16-18 132-167/61-103 95-98 GENERAL: The patient is awake, alert, in no acute distress, however has difficulty with his memory of recent events HEAD: Normal with no signs of trauma. EYES: PERRL, extraocular movements intact, sclera anicteric, conjunctiva clear. No ptosis. ENT: Oropharynx clear without exudates, moist mucous membranes. NECK: Trachea midline, full range of motion, supple. LUNGS: Breath sounds equal, clear to auscultation bilaterally, no wheezes, no crackles, no accessory muscle use. HEART: Regular rate and rhythm, S1, S2 without murmur, rub or gallop. ABDOMEN: Soft, nontender, nondistended, normoactive bowel sounds UPPER EXTREMITIES: Strength 5/5, Reflexes 2+ at elbows, well perfused, no edema LOWER EXTREMITIES: Strength 5/5, Reflexes 2+ knees b/l 2+ pulses, warm, well- perfused, no edema. NEUROLOGICAL: Cranial nerves II through XII grossly intact. Normal speech, gait not observed. PSYCH: Normal mood, normal affect. SKIN: Warm, dry, normal turgor, no rashes or lesions noted Laboratory Results - last 24 hr CBC, BMP 12/24/19 06:27 12/24/19 06:27 INR, PTT INR 1.24 (0.83-1.09) H 12/24/19 06:27 Active Medications Generic Name Dose Route Start Last Admin Trade Name Freq PRN Reason Stop Dose Admin Amlodipine Besylate 10 mg 12/23/19 10:00 12/24/19 09:30 Norvasc - PO 10 mg DAILY [facility] Administration Aspirin 81 mg 12/23/19 17:45 12/24/19 09:30 Asa - PO Not Given DAILY [facility] Enoxaparin Sodium 40 mg 12/23/19 10:00 12/24/19 09:30 Lovenox - SQ Not Given DAILY [facility] Sodium Chloride 1,000 mls @ 100 mls/hr 12/24/19 13:15 12/24/19 13:48 Normal Saline - IV 100 mls/hr ASDIR [facility] Administration Lisinopril 40 mg 12/23/19 10:00 12/24/19 09:30 Prinivil PO 40 mg DAILY [facility] Administration Pantoprazole Sodium 40 mg 12/23/19 17:45 12/24/19 09:30 Protonix Iv IVPB 40 mg DAILY [facility] Administration ASSESSMENT/PLAN: 84yo M with PMHx of HTN and CAD who presented with choking and an unwitnessed syncopal episode. ED workup was remarkable for an EKG showing bradycardia, and patient was admitted for further syncopal workup. Carotid Doppler: Intimal thickening and small plaques at the left common carotid bifurcation/bulb as well as mild intimal thickening and tiny plaque at the right common carotid bifurcation/bulb without evidence of hemodynamically significant stenosis EKG (12/22): SINUS BRADYCARDIA WITH PREMATURE ATRIAL COMPLEXES RIGHT SUPERIOR AXIS DEVIATION ST & T WAVE ABNORMALITY, CONSIDER LATERAL ISCHEMIA ABNORMAL ECG WHEN COMPARED WITH ECG OF 22-DEC-2019 18:25, QUESTIONABLE CHANGE IN QRS AXIS NON-SPECIFIC CHANGE IN ST SEGMENT IN INFERIOR LEADS T WAVE INVERSION NOW EVIDENT IN ANTERIOR LEADS UNWITNESSED SYNCOPE VS MECHANICAL FALL: R/O BRADYCARDIA 2/2 DEHYDRATION, MEDICATION INDUCED, CARDIOGENIC VS NEUROGENIC - Cardiology consulted -1. Continue Lisinopril 40 mg QD and Amlodipine 10 mg QD, and ASA 81 mg QD. Avoid AV fe agents. -2. Echocardiography was done in October 2019. Report reviewed -3. Telemetry monitoring unrevealing thus far - Neurology consulted -1. Seizure precautions. -2. Fall precautions. -3. Carotid Doppler. -4. Check orthostasis every shift. -5. Baby aspirin - EKG: New EKG shows increasing T-Wave Inversions. See above - ECHO: Previous Echo 10/2019 show EF 60-65 w/o any abnormality - PT consulted DOCUMENTED ORTHOSTATIC HYPOTENSION -IVF @ 100 -Continue Orthostatics Q8 -Fall Precautions EPISODE OF [place]: R/O DYSPHAGIA, STRICTURE - Continue aspiration precautions - Speech and Swallow: CLD 2/2 aspiration risk - GI consulted: -Upper endoscopy +/- esophageal dilation for today. NPO at Midnight -Protonix 40mg IVPB Daily - Pre-Op Stratification: -No active signs or sx of ACS/arrhythmias/CHF. EKG reviewed. EGD is a low risk procedure. The patient is independent in his ADLS, but does not have METS > 10 -If no arrhythmias over night, and if echo shows no significant pericardial effusion, then patient will be at low clinical risk for tony-op cardiac complication for this low risk procedure ( EGD ). 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 Possibly exposure to toxic chemicals PHYSICAL THERAPY -Per PT: -Generalized weakness all extremities -Narrow based gait -Requires minimal assistance with balance -Consider Rehab HYPERTENSION -Elevated BP this morning -Norvasc 10mg started -Lisinopril 40mg started HYPOPHOSPHATEMIA -Repleted w/ Phos-Nak -FU Phos tomorrow PAROTID GLAD DENSITY -No risk of airway compromise -FU outpatient ENT DILATED ASCENDING AORTA -FU Outpatient TRACHEAL POLYP -FU Outpatient Pulm FEN - No standing fluids - Replete lytes PRN - Per GI: CLD, NPO @ midnight prior to EGD - Per Speech & Swallow: MBS for assessment of solids, as indicated PPX - DVT: lovenox 40mg sq Dispo: Continue telemetry monitoring Visit type - Emergency Visit Emergency Visit: No - New Patient This patient is new to me today: No - Critical Care Critical Care patient: No - Discharge Referral Referred to [facility] Med P.C.: No - Medication Review Med list reviewed for High Risk Meds patients 65 and older: Yes ATTENDING PHYSICIAN STATEMENT I saw and evaluated the patient. I reviewed the resident's note and discussed the case with the resident. I agree with the resident's findings and plan as documented. SUBJECTIVE: OBJECTIVE: ASSESSMENT AND PLAN:
--- NOTE | 2019-12-24 16:00 | PN ---
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 (short form) - Note 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: Awaiting medical clearance prior to sedation for endoscopy. Advance to clears in interim and esophagram in AM Problem List - Problems (1) Choking sensation Code(s): R09.89 - [facility] SYMPTOMS AND SIGNS INVOLVING THE CIRC AND RESP SYSTEMS
--- NOTE | 2019-12-24 17:17 | PN ---
Teaching Attending Note Name of Resident: Albert Rivero ATTENDING PHYSICIAN STATEMENT I saw and evaluated the patient. I reviewed the resident's note and discussed the case with the resident. I agree with the resident's findings and plan as documented. SUBJECTIVE: seen around 11 am No fever or chills. No pain. No SOB. team spoke with his family yesterday. this is his base line mental status. confused but pleasant . OBJECTIVE: NAD, awake, alert, cooperative CV: RRR, 3/6 SM At RUSB , no radiation to carotids. No JVD Lungs: CTAB. Abd: soft, NT, Nd , NL BS. Ext: No edema , no erythema on upper or lower extremities. ASSESSMENT AND PLAN: Very pleasant 84 y/o gentleman with h/o CAD, s/p stents, HTN who presented with fall/? syncope, and a sensation of food impaction . 1- Unwitnessed syncope Vs mechanical fall : tele reviewed. echo not to be done as a recent one was done in October 2- Food impaction /now resolved . - case was d/w dr. Irwin today, who was informed of no absolute contraindication for EGD. Low risk for periop complications with EGD - EGD was canceled - rest of plan per GI 3- HTN. cont home meds 4- Incidental findings: - R parotid gland density: out pt f/u with ENT - Pleural based nodules: out pt f/u with pulm - dilated ascending Aorta : out pt monitoring with cario/vascular sx - possible pericardial effusion .recent echo does not show - Tracheal polyp : out pt f/u with pulm
--- NOTE | 2019-12-24 18:07 | PN ---
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, Physician History of Present Illness: events noted chart reviewed seen on telemetry Mild confusion Normal attention span Noted the chart seen by gastroenterology - Current Medication List Current Medications: Active Medications Amlodipine Besylate (Norvasc -) 10 mg PO DAILY [facility] Last Admin: 12/24/19 09:30 Dose: 10 mg Documented by: Aspirin (Asa -) 81 mg PO DAILY [facility] Last Admin: 12/24/19 09:30 Dose: Not Given Documented by: Enoxaparin Sodium (Lovenox -) 40 mg SQ DAILY [facility] Last Admin: 12/24/19 09:30 Dose: Not Given Documented by: Lisinopril (Prinivil) 40 mg PO DAILY [facility] Last Admin: 12/24/19 09:30 Dose: 40 mg Documented by: Metoprolol Succinate (Toprol Xl -) 50 mg PO DAILY [facility] Pantoprazole Sodium (Protonix Iv) 40 mg IVPB DAILY [facility] Last Admin: 12/24/19 09:30 Dose: 40 mg Documented by: - Objective Vital Signs: Vital Signs Temperature 98 F 12/24/19 14:00 Pulse Rate 61 12/24/19 14:00 Respiratory Rate 12/24/19 14:00 Blood Pressure 155/78 12/24/19 14:00 O2 Sat by Pulse Oximetry (%) 97 12/24/19 10:00 Constitutional: Yes: Well Nourished Eyes: Yes: WNL Neurological: Yes: Oriented, Cran Nerves II-XII Intact ...Motor Strength: WNL (Mini-Mental Status exam is 22) Labs: CBC, BMP 12/24/19 06:27 12/24/19 06:27 INR, PTT INR 1.24 (0.83-1.09) H 12/24/19 06:27 Problem List - Problems (1) Choking sensation Code(s): R09.89 - OTH SYMPTOMS AND SIGNS INVOLVING THE CIRC AND RESP SYSTEMS (2) Syncope Code(s): R55 - SYNCOPE AND COLLAPSE Qualifiers: Syncope type: unspecified Qualified Code(s): R55 - Syncope and collapse Assessment/Plan 1. Follow-up with cardiology. 2. Fall precautions. 3. Trial of Namenda 5 mg twice daily. 4. Discharge planning
[2019-12-25 08:03] LABS: BASO % 0.6 % (0-2.0); EOS % 2.4 % (0-4.5); HEMATOCRIT 38.7 % (35.4-49); HEMOGLOBIN 12.4 GM/dL (11.7-16.9); LYMPH % 19.4 % (8-40); MCH 26.4 pg (25.7-33.7); MEAN CELL VOLUME 82.4 fl (80-96); MEAN PLT VOLUME 9.6 fl (7.5-11.1); MONO % 7.7 % (3.8-10.2); NEUT % 69.9 % (42.8-82.8); PLATELET COUNT 193 K/MM3 (134-434); RDW 16.7 % (11.9-15.9); WHITE BLOOD COUNT 7.4 K/mm3 (4.0-10.0)
[2019-12-25 08:28] LABS: POTASSIUM 3.9 mmol/L (3.5-5.1)
[2019-12-25 08:53] LABS: ALBUMIN 3.5 g/dl (3.4-5.0); BILIRUBIN,TOTAL 0.7 mg/dL (0.2-1); BLOOD UREA NITROGEN 14.9 mg/dL (7-18); CALCIUM 9.7 mg/dL (8.5-10.1); TOT PROT 6.6 g/dl (6.4-8.2)
--- NOTE | 2019-12-25 09:27 | PN ---
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, Physician History of Present Illness: Denies recurrent near or true syncope, await EGD and esophagram to assess for dysphagia, food impaction, SB 40's on telemetry after resuming Toprol XL 50 qd (home dose). - Current Medication List Current Medications: Active Medications Amlodipine Besylate (Norvasc -) 10 mg PO DAILY [facility] Last Admin: 12/24/19 09:30 Dose: 10 mg Documented by: Aspirin (Asa -) 81 mg PO DAILY [facility] Last Admin: 12/24/19 09:30 Dose: Not Given Documented by: Enoxaparin Sodium (Lovenox -) 40 mg SQ DAILY [facility] Last Admin: 12/24/19 09:30 Dose: Not Given Documented by: Lisinopril (Prinivil) 40 mg PO DAILY [facility] Last Admin: 12/24/19 09:30 Dose: 40 mg Documented by: Memantine (Namenda -) 5 mg PO BID [facility] Metoprolol Succinate (Toprol Xl -) 50 mg PO DAILY [facility] Pantoprazole Sodium (Protonix Iv) 40 mg IVPB DAILY [facility] Last Admin: 12/24/19 09:30 Dose: 40 mg Documented by: - Objective Vital Signs: Vital Signs Temperature 98.1 F 12/25/19 06:00 Pulse Rate 62 12/25/19 06:00 Respiratory Rate 20 12/25/19 06:00 Blood Pressure 138/70 12/25/19 06:00 O2 Sat by Pulse Oximetry (%) 97 12/25/19 02:00 Constitutional: Yes: No Distress, Calm Neck: Yes: Supple Cardiovascular: Yes: Bradycardia Respiratory: Yes: Regular, CTA Bilaterally Gastrointestinal: Yes: Normal Bowel Sounds, Soft Edema: No Labs: CBC, BMP 12/25/19 07:30 12/25/19 07:30 INR, PTT INR 1.24 (0.83-1.09) H 12/24/19 06:27 - ....Imaging EKG: Report Reviewed (Tele: SB @ 47) Assessment/Plan Problem List - Problems (1) HTN (hypertension) Code(s): I10 - ESSENTIAL (PRIMARY) HYPERTENSION (2) CAD (coronary artery disease) Code(s): I25.10 - ATHSCL HEART DISEASE OF [place] CORONARY ARTERY W/O ANG PCTRS (3) Orthostatic hypotension Code(s): I95.1 - ORTHOSTATIC HYPOTENSION (4) Syncope Code(s): R55 - SYNCOPE AND COLLAPSE Qualifiers: Syncope type: unspecified Qualified Code(s): R55 - Syncope and collapse (5) Stented coronary artery Code(s): Z95.5 - PRESENCE OF CORONARY ANGIOPLASTY IMPLANT AND GRAFT Assessment/Plan Carotid US: No stenosis 1. Syncope 2/2 vasovagal referable to... 2. Food impaction/dysphagia 3. CAD s/p PCI, angina pectoris 4. HTN 5. Sinus bradycardia on Toprol XL 50 qd PLAN: 1. Continue Lisinopril 40 mg QD, Amlodipine 10 mg QD, and ASA 81 mg QD, decrease Toprol XL 25 qd 2. F/u EGD, esophagram. May proceed with EGD from standoint w/o further testing 3. Echocardiography was done in October 2019. Report reviewed 4. Telemetry monitoring unrevealing thus far
[2019-12-25] MEDS: ASPIRIN 81 MG CHEWABLE TABLETS PO SCH (09:51)
[2019-12-25] MEDS: ENOXAPARIN NA (PORCINE) 40 MG/0.4 ML DISP.SYRIN SQ SCH (09:51)
[2019-12-25] MEDS: amLODIPine BESYLATE 5 MG TABLET (FP) PO SCH (09:53)
[2019-12-25] MEDS: PANTOPRAZOLE SODIUM 40 MG VIAL IVPB SCH (09:53)
[2019-12-25] MEDS: LISINOPRIL 20 MG TABLET (FP) PO SCH (09:53)
--- NOTE | 2019-12-25 10:24 | PN ---
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, COMPUTER LAB ASSISTANT - Note 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: Selected Entries 12/24/19 12/25/19 12/25/19 23:00 02:00 06:00 Diet Tolerated Fair Supper 25% Temperature 98.2 F 98.1 F Pulse Rate 61 62 Blood Pressure 154/79 138/70 O2 Sat by Pulse 97 Oximetry (%) Laboratory Tests 12/25/19 07:30 WBC 7.4 Per GI order, pending esophagram. Reviewed with gi/pmd- consider mbs, required heimlich while eating meat.
[2019-12-25] MEDS: MEMANTINE HCL 5 MG TABLET (UD) PO SCH ×2 (12:31→22:14)
--- NOTE | 2019-12-25 15:37 | PN.GI ---
GI 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 Subjective: No acute events Esophagram revealed area of limited distention in the distal esophagus with some irregulrity to the borders in that area - Objective Vital Signs: Vital Signs Temperature 97.4 F L 12/25/19 14:00 Pulse Rate 50 L 12/25/19 14:00 Respiratory Rate 20 12/25/19 14:00 Blood Pressure 148/75 12/25/19 14:00 O2 Sat by Pulse Oximetry (%) 99 12/25/19 09:00 Constitutional: Calm Eyes: No: Sclera Icterus Cardiovascular: Yes: Bradycardia Respiratory: Yes: CTA Bilaterally Gastrointestinal Inspection: No: Distention ...Auscultate: Yes: Normoactive Bowel Sounds ...Palpate: Yes: Soft. No: Hepatomegaly, Splenomegaly, Tenderness ...Percussion: No: Tympanitic Edema: No (No LE edema) Neurological: Yes: Alert Labs: CBC, BMP 12/25/19 07:30 12/25/19 07:30 INR, PTT INR 1.24 (0.83-1.09) H 12/24/19 06:27 Hepatic Panel Total Bilirubin 0.7 mg/dL (0.2-1) 12/25/19 07:30 AST 28 U/L (15-37) 12/25/19 07:30 ALT 27 U/L (13-61) 12/25/19 07:30 Alkaline Phosphatase 89 U/L (45-117) 12/25/19 07:30 Albumin 3.5 g/dl (3.4-5.0) 12/25/19 07:30 Problem List - Problems (1) Choking sensation Assessment/Plan: For EGD +/- dilation 12/25 to evaluate dysphagia and abnormal esophagram findings. Discussed with Patient's daughter velvet ASA held yesterday and today Held AM Lovenox Continue PPI NPO after midnight except meds Fluids while NPO per primary team Code(s): R09.89 - OTH SYMPTOMS AND SIGNS INVOLVING THE CIRC AND RESP SYSTEMS
--- NOTE | 2019-12-25 18:05 | PN ---
Teaching Attending Note Name of Resident: Albert Rivero ATTENDING PHYSICIAN STATEMENT I saw and evaluated the patient. I reviewed the resident's note and discussed the case with the resident. I agree with the resident's findings and plan as documented. SUBJECTIVE: no pain, or SOB. abnormal feeling in neck OBJECTIVE: NAD, awake, alert, cooperative CV: RRR, 3/6 SM At RUSB , no radiation to carotids. Lungs: CTAB. Ext: No edema , no erythema on upper or lower extremities. ASSESSMENT AND PLAN: Very pleasant 84 y/o gentleman with h/o CAD, s/p stents, HTN who presented with fall/? syncope, and a sensation of food impaction . 1- Unwitnessed syncope Vs mechanical fall. 2- Food impaction /now resolved . - eshophogram results reviewed. EGD tomorrow - regular det with chopped food and thins . MBS reviewed. case was d/w With Masha from Speech 3- HTN. cont home meds 4- Incidental findings: - R parotid gland density: out pt f/u with ENT - Pleural based nodules: out pt f/u with pulm - dilated ascending Aorta : out pt monitoring with cario/vascular sx - possible pericardial effusion .recent echo does not show - Tracheal polyp : out pt f/u with pulm
--- NOTE | 2019-12-25 18:40 | PN ---
Physical Exam: SUBJECTIVE: Patient seen and examined this morning, no longer endorsing dizziness or aldridge. No other complaints. OBJECTIVE: Vital Signs Period Temp Pulse Resp BP Sys/Marcos Pulse Ox Last 24 Hr 97.4 F-98.8 F 46-71 18-20 134-159/66-79 95-99 GENERAL: The patient is awake, alert, and fully oriented, in no acute distress. HEAD: Normal with no signs of trauma. EYES: PERRL, extraocular movements intact, sclera anicteric, conjunctiva clear. No ptosis. ENT: Ears normal, nares patent, oropharynx clear without exudates, moist mucous membranes. NECK: Trachea midline, full range of motion, supple. LUNGS: Breath sounds equal, clear to auscultation bilaterally, no wheezes, no crackles, no accessory muscle use. HEART: Regular rate and rhythm, S1, S2 without murmur, rub or gallop. ABDOMEN: Soft, nontender, nondistended, normoactive bowel sounds, no guarding, no rebound, no hepatosplenomegaly, no masses. EXTREMITIES: 2+ pulses, warm, well-perfused, no edema. NEUROLOGICAL: Cranial nerves II through XII grossly intact. Normal speech, gait not observed. PSYCH: Normal mood, normal affect. SKIN: Warm, dry, normal turgor, no rashes or lesions noted Laboratory Results - last 24 hr CBC, BMP 12/25/19 07:30 12/25/19 07:30 Active Medications Generic Name Dose Route Start Last Admin Trade Name Devante PRN Reason Stop Dose Admin Amlodipine Besylate 10 mg 12/23/19 10:00 12/25/19 09:53 Norvasc - PO 10 mg DAILY [facility] Administration Aspirin 81 mg 12/23/19 17:45 12/25/19 09:51 Asa - PO Not Given DAILY [facility] Enoxaparin Sodium 40 mg 12/23/19 10:00 12/25/19 09:51 Lovenox - SQ Not Given DAILY [facility] Sodium Chloride 1,000 mls @ 75 mls/hr 12/26/19 00:01 Normal Saline - IV ASDIR [facility] Lisinopril 40 mg 12/23/19 10:00 12/25/19 09:53 Prinivil PO 40 mg DAILY [facility] Administration Memantine 5 mg 12/25/19 10:00 09/17/20 12:31 Namenda - PO 5 mg BID [facility] Administration Metoprolol Succinate 25 mg 12/26/19 10:00 Toprol Xl - PO DAILY [facility] Pantoprazole Sodium 40 mg 12/23/19 17:45 12/25/19 09:53 Protonix Iv IVPB 40 mg DAILY [facility] Administration ASSESSMENT/PLAN: 84yo M with PMHx of HTN and CAD who presented with choking and an unwitnessed syncopal episode. ED workup was remarkable for an EKG showing bradycardia, and patient was admitted for further syncopal workup. UNWITNESSED SYNCOPE VS MECHANICAL FALL: R/O BRADYCARDIA 2/2 DEHYDRATION, MEDICATION INDUCED, CARDIOGENIC VS NEUROGENIC - Cardiology consulted: Continue with recs - Neurology consulted: Continue w/ recs -1. Seizure precautions. -2. Fall precautions. -3. Check orthostatics every shift. - Start Memantine 5mg BID DOCUMENTED ORTHOSTATIC HYPOTENSION -IVF @ 75 -Continue Orthostatics Q8 -Fall Precautions EPISODE OF [place]: R/O DYSPHAGIA, STRICTURE - Continue aspiration precautions - Speech and Swallow: CLD 2/2 aspiration risk - Esophogram (12/24): -Difficulty swallowing solids Difficulty swallowing solids -Short segment of poor distention of the distal esophagus with questionable mild irregularity of its contour/ulcerations seen on the upright view for which further evaluation with endoscopy is r ecommended to rule out any underlying infiltrative process - FU EGD for 12/25 PHYSICAL THERAPY -Per PT: Mobility improving HYPERTENSION -Elevated BP this morning -Norvasc 10mg started -Lisinopril 40mg started -Start Metoprolol 25mg FEN - No standing fluids - Replete lytes PRN - Per GI: CLD, NPO @ midnight prior to EGD - Per Diet: Regular det with chopped food and thins PPX - DVT: lovenox 40mg sq Dispo: Continue telemetry monitoring Visit type - Emergency Visit Emergency Visit: No - New Patient This patient is new to me today: No - Critical Care Critical Care patient: No - Discharge Referral Referred to [facility] Med P.C.: No - Medication Review Med list reviewed for High Risk Meds patients 65 and older: Yes ATTENDING PHYSICIAN STATEMENT I saw and evaluated the patient. I reviewed the resident's note and discussed the case with the resident. I agree with the resident's findings and plan as documented. SUBJECTIVE: OBJECTIVE: ASSESSMENT AND PLAN:
[2019-12-26] MEDS ORDERED: SODIUM CHLORIDE 1,000 ML IV SCH (00:01)
[2019-12-26 07:27] LABS: BASO % 0.8 % (0-2.0); EOS % 3.3 % (0-4.5); HEMATOCRIT 37.6 % (35.4-49); HEMOGLOBIN 12.1 GM/dL (11.7-16.9); LYMPH % 24.6 % (8-40); MCH 26.3 pg (25.7-33.7); MCHC 32.1 g/dl (32.0-35.9); MEAN CELL VOLUME 81.8 fl (80-96); MEAN PLT VOLUME 10.2 fl (7.5-11.1); MONO % 9.2 % (3.8-10.2); NEUT % 62.1 % (42.8-82.8); PLATELET COUNT 176 K/MM3 (134-434); RBC 4.59 M/mm3 (4.00-5.60); RDW 16.4 % (11.9-15.9); WHITE BLOOD COUNT 6.7 K/mm3 (4.0-10.0)
[2019-12-26 08:04] LABS: POTASSIUM 3.7 mmol/L (3.5-5.1)
[2019-12-26 08:12] LABS: BLOOD UREA NITROGEN 10.4 mg/dL (7-18); CALCIUM 9.3 mg/dL (8.5-10.1); CREATININE 0.8 mg/dL (0.55-1.3)
--- NOTE | 2019-12-26 08:59 | PN ---
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, Physician History of Present Illness: Off floor undergoing EGD to assess for dysphagia, food impaction, SB 40's on telemetry after resuming Toprol XL 50 qd (home dose), dose decreased, bradycardia improved. - Current Medication List Current Medications: Active Medications Amlodipine Besylate (Norvasc -) 10 mg PO DAILY [facility] Last Admin: 12/25/19 09:53 Dose: 10 mg Documented by: Aspirin (Asa -) 81 mg PO DAILY [facility] Last Admin: 12/25/19 09:51 Dose: Not Given Documented by: Enoxaparin Sodium (Lovenox -) 40 mg SQ DAILY [facility] Last Admin: 12/25/19 09:51 Dose: Not Given Documented by: Sodium Chloride (Normal Saline -) 1,000 mls @ 75 mls/hr IV ASDIR [facility] Lisinopril (Prinivil) 40 mg PO DAILY [facility] Last Admin: 12/25/19 09:53 Dose: 40 mg Documented by: Memantine (Namenda -) 5 mg PO BID [facility] Last Admin: 12/25/19 22:14 Dose: 5 mg Documented by: Metoprolol Succinate (Toprol Xl -) 25 mg PO DAILY [facility] Pantoprazole Sodium (Protonix Iv) 40 mg IVPB DAILY [facility] Last Admin: 12/25/19 09:53 Dose: 40 mg Documented by: - Objective Vital Signs: Vital Signs Temperature 97.8 F 12/26/19 05:00 Pulse Rate 59 L 12/26/19 05:00 Respiratory Rate 20 12/26/19 05:00 Blood Pressure 157/82 12/26/19 05:00 O2 Sat by Pulse Oximetry (%) 94 L 12/25/19 22:00 Labs: CBC, BMP 12/26/19 05:30 12/26/19 05:30 INR, PTT INR 1.24 (0.83-1.09) H 12/24/19 06:27 Assessment/Plan Problem List - Problems (1) HTN (hypertension) Code(s): I10 - ESSENTIAL (PRIMARY) HYPERTENSION (2) CAD (coronary artery disease) Code(s): I25.10 - ATHSCL HEART DISEASE OF [place] CORONARY ARTERY W/O ANG PCTRS (3) Orthostatic hypotension Code(s): I95.1 - ORTHOSTATIC HYPOTENSION (4) Syncope Code(s): R55 - SYNCOPE AND COLLAPSE Qualifiers: Syncope type: unspecified Qualified Code(s): R55 - Syncope and collapse (5) Stented coronary artery Code(s): Z95.5 - PRESENCE OF CORONARY ANGIOPLASTY IMPLANT AND GRAFT Assessment/Plan 12/23/2019 Carotid US: No stenosis 12/25/2019 Esophagram: Area of limited distention in the distal esophagus with some irregulrity to the borders in that area 1. Syncope 2/2 vasovagal referable to... 2. Food impaction/dysphagia/esophageal stricture 3. CAD s/p PCI, angina pectoris 4. HTN 5. Sinus bradycardia on Toprol XL 50 qd PLAN: 1. Continue Lisinopril 40 mg QD, Amlodipine 10 mg QD, and ASA 81 mg QD, decreased Toprol XL 25 qd 2. F/u EGD+/-dilatation. May proceed with EGD from CV standoint w/o further testing 3. Echocardiography was done in October 2019. Report reviewed 4. Telemetry monitoring unrevealing thus far
[2019-12-26] MEDS: MEMANTINE HCL 5 MG TABLET (UD) PO SCH ×2 (09:00→21:23)
[2019-12-26] MEDS: PANTOPRAZOLE SODIUM 40 MG VIAL IVPB SCH (09:00)
[2019-12-26] MEDS: LISINOPRIL 20 MG TABLET (FP) PO SCH (09:00)
[2019-12-26] MEDS: amLODIPine BESYLATE 5 MG TABLET (FP) PO SCH (09:00)
[2019-12-26] MEDS: metoPROLOL SUCCINATE 25 MG TAB.SR.24H (FP) PO SCH (09:01)
--- NOTE | 2019-12-26 10:33 | PN ---
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, KNITTER HELPER - Note 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: Selected Entries 12/25/19 12/26/19 12/26/19 23:00 01:31 05:00 Diet Tolerated Fair Supper 25% Temperature 98.2 F 97.8 F Pulse Rate 46 L 59 L Blood Pressure 146/59 L 157/82 12/26/19 09:00 Diet Tolerated Supper Temperature 97.8 F Pulse Rate 52 L Blood Pressure 143/76 Laboratory Tests 12/26/19 05:30 WBC 6.7 MBS completed. (-) aspiration. (-) stasis Esophagram revealed area of limited distention in the distal esophagus with some irregulrity to the borders in that area Pending EGD
[2019-12-26 12:13] LABS: ARTERIAL BLOOD GAS BASE EXCESS -3.9 mmol/L (-2-2); ARTERIAL BLOOD GAS PO2 77.2 mmHg (80-100); ARTERIAL BLOOD GAS pH 7.433 (7.350-7.450)
[2019-12-26 12:38] LABS: BLOOD UREA NITROGEN 9.2 mg/dL (7-18); CALCIUM 9.2 mg/dL (8.5-10.1); CREATININE 0.9 mg/dL (0.55-1.3); POTASSIUM 3.9 mmol/L (3.5-5.1)
--- NOTE | 2019-12-26 14:49 | PN ---
Physical Exam: SUBJECTIVE: Patient seen and examined today, endorsed no complaints, aware of EGD today. OBJECTIVE: Vital Signs Period Temp Pulse Resp BP Sys/Marcos Pulse Ox Last 24 Hr 97.6 F-98.2 F 46-59 18-20 143-157/59-82 94-98 GENERAL: The patient is AAOx3 HEAD: Normal with no signs of trauma. EYES: PERRL, extraocular movements intact, sclera anicteric, conjunctiva clear. No ptosis. NECK: Trachea midline, full range of motion, supple. LUNGS: Breath sounds equal, clear to auscultation bilaterally HEART: Regular rate and rhythm, S1, S2 without murmur, rub or gallop. ABDOMEN: Soft, nontender, nondistended, BS4+ EXTREMITIES: 2+ pulses, warm, well-perfused, no edema. NEUROLOGICAL: Normal speech, gait not observed. PSYCH: Normal mood, normal affect. SKIN: Warm, dry, normal skin turgor, no rashes or lesions noted Laboratory Results - last 24 hr CBC, BMP 12/26/19 05:30 12/26/19 11:17 Active Medications Generic Name Dose Route Start Last Admin Trade Name Devante PRN Reason Stop Dose Admin Amlodipine Besylate 10 mg 12/23/19 10:00 12/26/19 09:00 Norvasc - PO 10 mg DAILY [facility] Administration Aspirin 81 mg 12/23/19 17:45 12/25/19 09:51 Asa - PO Not Given DAILY [facility] Enoxaparin Sodium 40 mg 12/23/19 10:00 12/25/19 09:51 Lovenox - SQ Not Given DAILY [facility] Sodium Chloride 1,000 mls @ 75 mls/hr 12/26/19 00:01 12/26/19 09:00 Normal Saline - IV 75 mls/hr ASDIR [facility] Administration Lisinopril 40 mg 12/23/19 10:00 12/26/19 09:00 Prinivil PO 40 mg DAILY [facility] Administration Memantine 5 mg 12/25/19 10:00 12/26/19 09:00 Namenda - PO 5 mg BID [facility] Administration Metoprolol Succinate 25 mg 12/26/19 10:00 12/26/19 09:01 Toprol Xl - PO Not Given DAILY [facility] Pantoprazole Sodium 40 mg 12/23/19 17:45 12/26/19 09:00 Protonix Iv IVPB 40 mg DAILY [facility] Administration ASSESSMENT/PLAN: 84yo M with PMHx of HTN and CAD who presented with choking and an unwitnessed syncopal episode. ED workup was remarkable for an EKG showing bradycardia, and patient was admitted for further syncopal workup. EPISODE OF CHOKING: R/O DYSPHAGIA, STRICTURE - Continue aspiration precautions - Speech and Swallow: MBS negative aspiration, negative stasis - EGD Today; FU Results UNWITNESSED SYNCOPE VS MECHANICAL FALL: R/O BRADYCARDIA 2/2 DEHYDRATION, MEDICATION INDUCED, CARDIOGENIC VS NEUROGENIC - Cardiology consulted: Continue with recs - Neurology consulted: Continue w/ recs -1. Seizure precautions. -2. Fall precautions. -3. Check orthostatics every shift. -4. Continue memantine DOCUMENTED ORTHOSTATIC HYPOTENSION -IVF @ 75 -Continue Orthostatics Q8 PHYSICAL THERAPY -Per PT: Ptn too tired to attempt today HYPERTENSION -Norvasc 10mg started -Lisinopril 40mg started -Metoprolol 25mg FEN - NS @ 75 - Replete lytes PRN - Per GI: CLD, NPO @ midnight prior to EGD - Per Diet: Regular diet with chopped food and thins PPX - DVT: lovenox 40mg sq Dispo: Continue telemetry monitoring ATTENDING PHYSICIAN STATEMENT I saw and evaluated the patient. I reviewed the resident's note and discussed the case with the resident. I agree with the resident's findings and plan as documented. SUBJECTIVE: OBJECTIVE: ASSESSMENT AND PLAN:
--- NOTE | 2019-12-26 16:55 | PN.GI ---
GI 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 Subjective: GI Procedure NOte: Please see EGD report. A Schatzki ring above a hiatal hernia is the cause of dysphagia. I disrupted the ring with biopsies and then was able to dilate it to 20mm with good results. Using an leveler helper I discussed the results with Amador and also with his daughter, Alissa. I advised against [address] meat and fish until he gets his teeth repaired. Pantoprazole should be continued. A submucosal antral polyp was biopsied for which he isabel followup with Dr Faust. - Objective Vital Signs: Vital Signs Temperature 97.8 F 12/26/19 16:12 Pulse Rate 54 L 12/26/19 16:42 Respiratory Rate 16 12/26/19 16:42 Blood Pressure 159/76 12/26/19 16:42 O2 Sat by Pulse Oximetry (%) 96 12/26/19 16:42 CBC,CMP WBC 6.7 K/mm3 (4.0-10.0) 12/26/19 05:30 RBC 4.59 M/mm3 (4.00-5.60) 12/26/19 05:30 Hgb 12.1 GM/dL (11.7-16.9) 12/26/19 05:30 Hct 37.6 % (35.4-49) 12/26/19 05:30 MCV 81.8 fl (80-96) 12/26/19 05:30 MCH 26.3 pg (25.7-33.7) 12/26/19 05:30 MCHC 32.1 g/dl (32.0-35.9) 12/26/19 05:30 RDW 16.4 % (11.9-15.9) H 12/26/19 05:30 Plt Count 176 K/MM3 (134-434) 12/26/19 05:30 MPV 10.2 fl (7.5-11.1) 12/26/19 05:30 Absolute Neuts (auto) 4.1 K/mm3 (1.5-8.0) 12/26/19 05:30 Neutrophils % 62.1 % (42.8-82.8) 12/26/19 05:30 Lymphocytes % 24.6 % (8-40) D 12/26/19 05:30 Monocytes % 9.2 % (3.8-10.2) 12/26/19 05:30 Eosinophils % 3.3 % (0-4.5) 12/26/19 05:30 Basophils % 0.8 % (0-2.0) 12/26/19 05:30 Nucleated RBC % 0 % (0-0) 12/26/19 05:30 Sodium 140 mmol/L (136-145) 12/26/19 11:17 Potassium 3.9 mmol/L (3.5-5.1) 12/26/19 11:17 Chloride 110 mmol/L (98-107) H 12/26/19 11:17 Carbon Dioxide 25 mmol/L (21-32) 12/26/19 11:17 Anion Gap 5 MMOL/L (8-16) L 12/26/19 11:17 BUN 9.2 mg/dL (7-18) 12/26/19 11:17 Creatinine 0.9 mg/dL (0.55-1.3) 12/26/19 11:17 Est GFR (CKD-EPI)AfAm 91.22 12/26/19 11:17 Est GFR (CKD-EPI)NonAf 78.71 12/26/19 11:17 Random Glucose 91 mg/dL (74-106) 12/26/19 11:17 Lactic Acid 1.2 mmol/L (0.4-2.0) 12/26/19 11:17 Calcium 9.2 mg/dL (8.5-10.1) 12/26/19 11:17 Phosphorus 2.5 mg/dL (2.5-4.9) 12/24/19 06:27 Magnesium 2.3 mg/dL (1.8-2.4) 12/23/19 05:38 Total Bilirubin 0.7 mg/dL (0.2-1) 12/25/19 07:30 AST 28 U/L (15-37) 12/25/19 07:30 ALT 27 U/L (13-61) 12/25/19 07:30 Alkaline Phosphatase 89 U/L (45-117) 12/25/19 07:30 Creatine Kinase 228 U/L (26-308) 12/22/19 14:50 Creatine Kinase Index No Result Required. 12/22/19 14:50 CK-MB (CK-2) < 1.0 ng/mL (0.5-3.6) 12/22/19 14:50 Troponin I < 0.02 ng/ml (0.00-0.05) 12/22/19 14:50 Total Protein 6.6 g/dl (6.4-8.2) 12/25/19 07:30 Albumin 3.5 g/dl (3.4-5.0) 12/25/19 07:30 Current Medications Generic Name Dose Route Start Last Admin Trade Name Devante PRN Reason Stop Dose Admin Amlodipine Besylate 10 mg 12/23/19 10:00 12/26/19 09:00 Norvasc - PO 10 mg DAILY [facility] Administration Aspirin 81 mg 12/23/19 17:45 12/25/19 09:51 Asa - PO Not Given DAILY [facility] Enoxaparin Sodium 40 mg 12/23/19 10:00 12/25/19 09:51 Lovenox - SQ Not Given DAILY [facility] Sodium Chloride 1,000 mls @ 75 mls/hr 12/26/19 00:01 12/26/19 09:00 Normal Saline - IV 75 mls/hr ASDIR [facility] Administration Lisinopril 40 mg 12/23/19 10:00 12/26/19 09:00 Prinivil PO 40 mg DAILY [facility] Administration Memantine 5 mg 12/25/19 10:00 12/26/19 09:00 Namenda - PO 5 mg BID [facility] Administration Metoprolol Succinate 25 mg 12/26/19 10:00 12/26/19 09:01 Toprol Xl - PO Not Given DAILY [facility] Pantoprazole Sodium 40 mg 12/26/19 22:00 Protonix - PO BID [facility] Constitutional: Calm ...Auscultate: Yes: Normoactive Bowel Sounds ...Palpate: Yes: Soft, Other (nontender) Labs: CBC, BMP 12/26/19 05:30 12/26/19 11:17 INR, PTT INR 1.24 (0.83-1.09) H 12/24/19 06:27 Assessment/Plan Impression: - Dysphagia due to Schatzki ring which was dilated. 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 or carcinoid and may need EUS - Duodenitis - Poor dentition Plan: - Soft diet unti teeth are repaired -- Pantoprazole -- [facility]up [facility] Dr Faust - No GI objections to discharge Dr Irwin will be covering this weekend Problem List - Problems (1) Schatzki's ring of distal esophagus Code(s): K22.2 - ESOPHAGEAL OBSTRUCTION (2) Hiatal hernia with GERD and esophagitis Code(s): K44.9 - DIAPHRAGMATIC HERNIA WITHOUT OBSTRUCTION OR GANGRENE; K21.0 - GASTRO-ESOPHAGEAL REFLUX DISEASE WITH ESOPHAGITIS (3) Gastric polyp Code(s): K31.7 - POLYP OF STOMACH AND DUODENUM (4) Duodenitis Code(s): K29.80 - DUODENITIS WITHOUT BLEEDING (5) Dysphagia Code(s): R13.10 - DYSPHAGIA, UNSPECIFIED
--- NOTE | 2019-12-26 18:00 | PN ---
Teaching Attending Note Name of Resident: Albert Rivero ATTENDING PHYSICIAN STATEMENT I saw and evaluated the patient. I reviewed the resident's note and discussed the case with the resident. I agree with the resident's findings and plan as documented. SUBJECTIVE: no pain or other complaints OBJECTIVE: NAD, awake, alert, cooperative CV: RRR, 3/6 SM At RUSB , no radiation to carotids. Lungs: CTAB. Ext: No edema , no erythema on upper or lower extremities. ASSESSMENT AND PLAN: Very pleasant 84 y/o gentleman with h/o CAD, s/p stents, HTN who presented with fall/? syncope, and a sensation of food impaction . 1- Unwitnessed syncope Vs mechanical fall. 2- Food impaction /now resolved . - EGD with schatzki 's ring. dilated . submucosal gastric lesion will need out pt follow up - soft diet and PPI - f/u GI as out pt 3- HTN. cont home meds mild sinus bradycardia noted. can decrease torpol to 12.5 daily 4- Incidental findings: - R parotid gland density: out pt f/u with ENT - Pleural based nodules: out pt f/u with pulm - dilated ascending Aorta : out pt monitoring with cario/vascular sx - possible pericardial effusion on ct .recent echo does not show - Tracheal polyp : out pt f/u with pulm dc home with VNS. daughter will be updated by team
--- NOTE | 2019-12-26 20:32 | DS ---
Physical Exam: SUBJECTIVE: Patient seen and examined this morning prior to his EGD and in the afternoon. ptn was in no acute distress, spoken to via jewelsmith and endorsed no complaints. OBJECTIVE: Vital Signs Period Temp Pulse Resp BP Sys/Marcos Pulse Ox Last 24 Hr 97.3 F-98.3 F 46-63 14-20 131-159/59-82 94-100 PHYSICAL EXAM GENERAL: The patient is AAOx3 HEAD: Normal with no signs of trauma. EYES: PERRL, extraocular movements intact, sclera anicteric, conjunctiva clear. No ptosis. NECK: Trachea midline, full range of motion, supple. LUNGS: Breath sounds equal, clear to auscultation bilaterally HEART: Regular rate and rhythm, S1, S2 without murmur, rub or gallop. ABDOMEN: Soft, nontender, nondistended, BS4+ EXTREMITIES: 2+ pulses, warm, well-perfused, no edema. NEUROLOGICAL: Normal speech, gait not observed. PSYCH: Normal mood, normal affect. SKIN: Warm, dry, normal skin turgor, no rashes or lesions noted LABS Laboratory Results - last 24 hr 12/26/19 12/26/19 12/26/19 05:30 05:30 11:17 WBC 6.7 RBC 4.59 Hgb 12.1 Hct 37.6 MCV 81.8 MCH 26.3 MCHC 32.1 RDW 16.4 H Plt Count 176 MPV 10.2 Absolute Neuts (auto) 4.1 Neutrophils % 62.1 Lymphocytes % 24.6 D Monocytes % 9.2 Eosinophils % 3.3 Basophils % 0.8 Nucleated RBC % 0 Anticoagulation Therapy Puncture Site Patient Temperature ABG pH ABG pCO2 ABG pO2 ABG HCO3 ABG O2 Sat (Measured) ABG O2 Content ABG Base Excess Daron Test Patient On Oxygen O2 Delivery Device Oxygen Flow Rate Vent Mode Vent Rate Mechanical Rate PEEP Pressure Support Vent Sodium 140 140 Potassium 3.7 3.9 Chloride 110 H 110 H Carbon Dioxide 11 L 25 Anion Gap 19 H 5 L BUN 10.4 9.2 Creatinine 0.8 0.9 Est GFR (CKD-EPI)AfAm 95.75 91.22 Est GFR (CKD-EPI)NonAf 82.61 78.71 Random Glucose 81 91 Lactic Acid Calcium 9.3 9.2 12/26/19 12/26/19 11:17 11:44 WBC RBC Hgb Hct MCV MCH MCHC RDW Plt Count MPV Absolute Neuts (auto) Neutrophils % Lymphocytes % Monocytes % Eosinophils % Basophils % Nucleated RBC % Anticoagulation Therapy No Result Required. Puncture Site No Result Required. Patient Temperature No Result Required. ABG pH 7.433 ABG pCO2 29.40 L ABG pO2 77.2 L ABG HCO3 19.2 L ABG O2 Sat (Measured) 96.0 ABG O2 Content No Result Required. ABG Base Excess -3.9 L Daron Test No Result Required. Patient On Oxygen No O2 Delivery Device Room air Oxygen Flow Rate 21% Vent Mode No Result Required. Vent Rate No Result Required. Mechanical Rate No Result Required. PEEP No Result Required. Pressure Support Vent No Result Required. Sodium Potassium Chloride Carbon Dioxide Anion Gap BUN Creatinine Est GFR (CKD-EPI)AfAm Est GFR (CKD-EPI)NonAf Random Glucose Lactic Acid 1.2 Calcium HOSPITAL COURSE: Date of Admission:12/22/19 CT HEAD: There is generalized volume loss with moderate ventricular dilatation and extensive periventricular chronic microvascular ischemic disease changes. 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 Differential diagnosis includes a pleomorphic adenoma for which a nonemergent ENT consultation is suggested. CT CHEST: Mild COPD/emphysematous changes. Tiny bilateral pleural-based nodules measuring up to 4 mm which are nonspecific. No focal infiltrates are identified. The previous versus a tiny polyp along the right lateral wall of the trachea, just above the level of the keenan measuring 5 mm. 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 Mild cardiomegaly and minimal pericardial effusion. Large bilateral renal cysts, as described above. Scattered diverticula in included portion of the colon without evidence of acute diverticulitis. CXR: An acute process is not seen. EKG: SINUS BRADYCARDIA WITH PREMATURE ATRIAL COMPLEXES CANNOT RULE OUT ANTERIOR INFARCT , AGE UNDETERMINED WHEN COMPARED WITH ECG OF 30-OCT-2019 09:11, PREMATURE ATRIAL COMPLEXES ARE NOW PRESENT VENT. RATE HAS DECREASED BY 29 BPM T WAVE INVERSION NOW EVIDENT IN LATERAL LEADS ECHO: EF 60-65%, all other values wnl. Date of Discharge: 12/26/19 84yo M with PMHx of HTN and CAD who presented to the ED with choking and an unwitnessed syncopal episode. Patient is a poor historian and information was gathered from daughter Brianna [phone]. Patient was at home when he fell in his kitchen and hit is head. Patient remembers that he fell and hit his head, but was unable to recall why he fell or for how long he was lying on the floor. Patient also had an episode of choking on a piece of steak where his daughter preformed the Heimlich maneuver. ER course was notable for: (1) EKG showing bradycardia with premature atrial complexes (2) negative orthostatics (166/80 P55 --> 176/74 P68) (3) CT head, neck CT, chest CT and CXR unremarkable for acute pathology Patient was admitted to the floors and was worked up for Syncope, Orthostatic Hypotension, as well as dysphagia. Neurology was consulted and ASA 81 and Memantine 5mg BID was started due to the patient's mental status which started declining 2 months ago per his daughter. Present mentation is patient's baseline. Due to mild bradycardia, Toprol was decreased to 12.5 BID. Additionally Dietary, Speech and swallow, and GI were consulted regarding the Dysphagia. MBS was performed followed by an Esophogram and EGD which showed Schatzki ring which was dilated, GERD above a hiatal hernia, submucosal gastric nodule, Duodenitis, and poor dentition. Plan for outpatient follow up. Ptn instructed on appropriate diet and PPI was added. The patient was seen by PT and had increased mobility with further visits. All other findings on imaging were discussed and referrals to appropriate specialties made. At the time of DC, patient was medically stable. Minutes to complete discharge: 36 Discharge Summary Problems reviewed: Yes Reason For Visit: SYNCOPE Current Active Problems Duodenitis (Acute) Dysphagia (Acute) Gastric polyp (Acute) HTN (hypertension) (Acute) Hiatal hernia with GERD and esophagitis (Acute) Schatzki's ring of distal esophagus (Acute) Stented coronary artery (Chronic) Condition: Improved - Instructions Diet, Activity, Other Instructions: Your visit: You were admitted to the hospital for passing out and hitting your head as well as difficulty swallowing. Additionally you were found to have confusion. You were found to have no acute injuries, however we did find areas in your throat which were narrowed. You had an endoscopy with dilation to improve your s ymptoms. You were also found to have acid reflux of the esophagus. Of note, during your stay we also found: -right parotid gland density -polyp within the trachea -dilated ascending aorta -mild COPD, nodules in the lungs, cysts on the kidneys You are being sent home with visiting nurse services for help at home. Medications changes: -Your Tamulosin was STOPPED because of you passed out. Please see your Manufacturing Design Engineer before restarting -Your Metoprolol was decreased from 50gm once a day to 25mg once a day. Please continue the 25mg once a day. ( throw out the 50 mg pills nad take the new prescribed 25 mg pills ) -You were started on Aspirin 81mg once a day, please continue taking this medication -You were started on Memantine 5mg twice a day, please continue taking this medication. -Please only eat SOFT FOODS until your oral hygiene can be assessed. Follow up: -Dr. Faust (gastroenterology) within 2 week for resolution of you swallowing problems -Dr. Cross (cardiology) for continued care of your aortic dilatation -Dr. Robert Bee (ENT) for assessment of your parotid gland -Dr. Adin Palmer (Pulmonary) for assessment of your lungs -Dr. Silviano Carson (Nephrology) for assessment of your kidneys -Dr. Sarai Lester (Neurology) for continued care after passing out -Dr. Abner Pradhan (Dentistry) for assessment of your teeth. -Visit with your Primary Care Provider in 2 weeks. Additional Instructions: -You are being discharged to your home. -Please return to the Emergency Department if you experience worsening pain, fevers, chills, shortness of breath, or chest pain, or if you experience any worsening, new or concerning symptoms. Referrals: Abner Pradhan DDS [Staff Physician] - 2 Weeks Eris Goznalez MD [Staff Physician] - 2 Weeks Bola Faust DO [Staff Physician] - 2 Weeks Ambreen Parks [Primary Care Provider] - 1 Week Alma Carson MD [Staff Physician] - 1 Month Octavio Cross MD [Staff Physician] - 2 Weeks Sarai Lester MD [Staff Physician] - 2 Weeks Adin Palmer MD, MD [Staff Physician] - 1 Month Disposition: VNS/HOME HEALTH CARE - Home Medications Comprehensive Discharge Medication List: Ambulatory Orders Amlodipine Besylate [Norvasc -] 10 mg PO DAILY #30 tablet 10/31/19 Lisinopril [Prinivil -] 40 mg PO DAILY #30 tablet 10/31/19 Omeprazole 20 mg PO DAILY 12/23/19 Aspirin [ASA -] 81 mg PO DAILY tab.chew 12/26/19 Memantine HCl [Namenda -] 5 mg PO BID 30 Days #60 tab MDD 10 12/26/19 Metoprolol Succinate [Toprol XL -] 25 mg PO DAILY 30 Days #30 tab.sr.24h MDD 25 12/26/19 This patient is new to me today: No Emergency Visit: No Critical Care patient: No - Discharge Referral Referred to [facility] No ATTENDING PHYSICIAN STATEMENT I saw and evaluated the patient. I reviewed the resident's note and discussed the case with the resident. I agree with the resident's findings and plan as documented. SUBJECTIVE: OBJECTIVE: ASSESSMENT AND PLAN:
[2019-12-26] MEDS: PANTOPRAZOLE 40 MG TABLET PO SCH (21:23)
[2019-12-27 06:10] VITALS: PULSE 62
[2019-12-27 06:53] LABS: BASO % 0.6 % (0-2.0); EOS % 2.2 % (0-4.5); HEMATOCRIT 37.6 % (35.4-49); HEMOGLOBIN 12.3 GM/dL (11.7-16.9); LYMPH % 21.2 % (8-40); MCH 26.8 pg (25.7-33.7); MCHC 32.7 g/dl (32.0-35.9); MEAN CELL VOLUME 81.9 fl (80-96); MONO % 9.1 % (3.8-10.2); NEUT % 66.9 % (42.8-82.8); PLATELET COUNT 176 K/MM3 (134-434); RBC 4.59 M/mm3 (4.00-5.60); RDW 16.5 % (11.9-15.9); WHITE BLOOD COUNT 7.6 K/mm3 (4.0-10.0)
--- NOTE | 2019-12-27 07:00 | PN ---
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 (short form) - Note 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: Chief Complaint: Events noted, notes reviewed, resting in bed, denies chest discomfort, denies dyspnea History of Present Illness: Seen and examined on telemetry. Events noted, notes reviewed, resting in bed, denies chest discomfort, denies dyspnea Medications: Current Medications Generic Name Dose Route Start Last Admin Trade Name Devante PRN Reason Stop Dose Admin Amlodipine Besylate 10 mg 12/23/19 10:00 12/26/19 09:00 Norvasc - PO 10 mg DAILY BRIGIDA Administration Aspirin 81 mg 12/23/19 17:45 12/25/19 09:51 Asa - PO Not Given DAILY BRIGIDA Enoxaparin Sodium 40 mg 12/23/19 10:00 12/25/19 09:51 Lovenox - SQ Not Given DAILY BRIGIDA Sodium Chloride 1,000 mls @ 75 mls/hr 12/26/19 00:01 12/26/19 09:00 Normal Saline - IV 75 mls/hr ASDIR BRIGIDA Administration Lisinopril 40 mg 12/23/19 10:00 12/26/19 09:00 Prinivil PO 40 mg DAILY BRIGIDA Administration Memantine 5 mg 12/25/19 10:00 12/26/19 21:23 Namenda - PO 5 mg BID BRIGIDA Administration Metoprolol Succinate 25 mg 12/26/19 10:00 12/26/19 09:01 Toprol Xl - PO Not Given DAILY BRIGIDA Pantoprazole Sodium 40 mg 12/26/19 22:00 12/26/19 21:23 Protonix - PO 40 mg BID BRIGIDA Administration Review of Systems - Review of Systems Constitutional: no symptoms reported Respiratory: no symptoms reported Cardiovascular: as noted above Gastrointestinal: denies Nausea, Vomiting, Diarrhea, Constipation or Abdominal Pain Genitourinary: no symptoms reported Musculoskeletal: no symptoms reported Endocrine: no symptoms reported Vital Signs: Last Vital Signs Temp Pulse Resp BP Pulse Ox 98.5 F 62 18 136/76 97 12/27/19 06:00 12/27/19 06:00 12/27/19 06:00 12/27/19 06:00 12/27/19 06:00 Intake & Output 12/24/19 12/25/19 12/26/19 12/27/19 23:59 23:59 23:59 23:59 Intake Total 482 065 9740 150 Balance 055 967 2999 150 Weight 180 lb Neck: Supple Negative JVD Respiratory: Diminished Breath Sounds at the Bases Cardiovascular: S1 S2 Regular Rate Rhythm Gastrointestinal: Soft Benign Normal Bowel Sounds Ext: Negative Edema Labs: CBC, BMP 12/27/19 06:15 12/27/19 06:15 Hepatic Panel Total Bilirubin 0.7 mg/dL (0.2-1) 12/25/19 07:30 AST 28 U/L (15-37) 12/25/19 07:30 ALT 27 U/L (13-61) 12/25/19 07:30 Alkaline Phosphatase 89 U/L (45-117) 12/25/19 07:30 Albumin 3.5 g/dl (3.4-5.0) 12/25/19 07:30 INR, PTT INR 1.24 (0.83-1.09) H 12/24/19 06:27 Assessment/Plan ASSESSMENT: 1. Syncope secondary to vasovagal syncope, referable to... 2. Food impaction/dysphagia/esophageal stricture 3. CAD post PCI, angina pectoris 4. 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 HTN 6. Sinus bradycardia, asymptomatic 7. Organic brain syndrome PLAN: 1. Continue Lisinopril therapy 2. Continue Amlodipine therapy 3. Continue Toprol XL therapy, reduced dose in view of the above noted sinus bradycardia 4. Continue ASA therapy Helder Taylor MD
[2019-12-27 07:17] LABS: BLOOD UREA NITROGEN 10.4 mg/dL (7-18); POTASSIUM 3.7 mmol/L (3.5-5.1)
--- NOTE | 2019-12-27 07:44 | PN.GI ---
GI 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 Subjective: no new complaints - Objective Vital Signs: Vital Signs Temperature 98.5 F 12/27/19 06:00 Pulse Rate 62 12/27/19 06:00 Respiratory Rate 18 12/27/19 06:00 Blood Pressure 136/76 12/27/19 06:00 O2 Sat by Pulse Oximetry (%) 97 12/27/19 06:00 Constitutional: Well Nourished, No Distress, Calm Eyes: Yes: WNL HENT: Yes: WNL Neck: Yes: WNL Cardiovascular: Yes: WNL, Regular Rate and Rhythm Respiratory: Yes: WNL, Regular, CTA Bilaterally Gastrointestinal Inspection: Yes: WNL ...Auscultate: Yes: Normoactive Bowel Sounds Musculoskeletal: Yes: WNL Extremities: Yes: Erythema Labs: CBC, BMP 12/27/19 06:15 12/27/19 06:15 INR, PTT INR 1.24 (0.83-1.09) H 12/24/19 06:27 Problem List - Problems (1) Dysphagia Assessment/Plan: s/p egd with evidence of schatzki ring / hiatus hernia s/p biopsy / dilation soft diet as tolerated ppi 40 mg po qd dc planning as per primary medical team Code(s): R13.10 - DYSPHAGIA, UNSPECIFIED (2) Hiatal hernia with GERD and esophagitis Code(s): K44.9 - DIAPHRAGMATIC HERNIA WITHOUT OBSTRUCTION OR GANGRENE; K21.0 - GASTRO-ESOPHAGEAL REFLUX DISEASE WITH ESOPHAGITIS (3) Schatzki's ring of distal esophagus Code(s): K22.2 - ESOPHAGEAL OBSTRUCTION
[2019-12-27] MEDS: PANTOPRAZOLE 40 MG TABLET PO SCH (09:26)
[2019-12-27] MEDS: MEMANTINE HCL 5 MG TABLET (UD) PO SCH (09:26)
[2019-12-27] MEDS: metoPROLOL SUCCINATE 25 MG TAB.SR.24H (FP) PO SCH (09:26)
[2019-12-27] MEDS: LISINOPRIL 20 MG TABLET (FP) PO SCH (09:26)
[2019-12-27] MEDS: amLODIPine BESYLATE 5 MG TABLET (FP) PO SCH (09:26)
[2019-12-27] MEDS: ASPIRIN 81 MG CHEWABLE TABLETS PO SCH (09:26)
[2019-12-27] MEDS: ENOXAPARIN NA (PORCINE) 40 MG/0.4 ML DISP.SYRIN SQ SCH (09:31)
--- NOTE | 2019-12-27 11:50 | PN ---
Physical Exam: SUBJECTIVE: Patient seen and examined this morning, patient was walking. No acute distress, very active, endorses no complaints. Social work consulted about VNS which was denied yesterday. OBJECTIVE: Vital Signs Period Temp Pulse Resp BP Sys/Marcos Pulse Ox Last 24 Hr 97.3 F-98.5 F 52-75 14-20 131-159/68-80 95-100 GENERAL: The patient is awake, alert, in no acute distress HEAD: Normal with no signs of trauma. EYES: PERRL, extraocular movements intact, sclera anicteric, conjunctiva clear. No ptosis. ENT: Oropharynx clear without exudates, moist mucous membranes. NECK: Trachea midline, full range of motion, supple. LUNGS: Breath sounds equal, clear to auscultation bilaterally, no wheezes, no crackles, no accessory muscle use. HEART: Regular rate and rhythm, S1, S2 without murmur, rub or gallop. ABDOMEN: Soft, nontender, nondistended, normoactive bowel sounds UPPER EXTREMITIES: 2+ pules, well perfused, no edema LOWER EXTREMITIES: 2+ pulses, warm, well-perfused, no edema. NEUROLOGICAL: Normal speech, gait normal PSYCH: Normal mood, normal affect. SKIN: Warm, dry, normal turgor, no rashes or lesions noted Laboratory Results - last 24 hr Active Medications Generic Name Dose Route Start Last Admin Trade Name Devante PRN Reason Stop Dose Admin Amlodipine Besylate 10 mg 12/23/19 10:00 12/27/19 09:26 Norvasc - PO 10 mg DAILY BRIGIDA Administration Aspirin 81 mg 12/23/19 17:45 12/27/19 09:26 Asa - PO 81 mg DAILY BRIGIDA Administration Enoxaparin Sodium 40 mg 12/23/19 10:00 12/27/19 09:31 Lovenox - SQ Not Given DAILY BRIGIDA Sodium Chloride 1,000 mls @ 75 mls/hr 12/26/19 00:01 12/26/19 09:00 Normal Saline - IV 75 mls/hr ASDIR BRIGIDA Administration Lisinopril 40 mg 12/23/19 10:00 12/27/19 09:26 Prinivil PO 40 mg DAILY BRIGIDA Administration Memantine 5 mg 12/25/19 10:00 12/27/19 09:26 Namenda - PO 5 mg BID BRIGIDA Administration Metoprolol Succinate 25 mg 12/26/19 10:00 12/27/19 09:26 Toprol Xl - PO 25 mg DAILY BRIGIDA Administration Pantoprazole Sodium 40 mg 12/26/19 22:00 12/27/19 09:26 Protonix - PO 40 mg BID BRIGIDA Administration ASSESSMENT/PLAN: 84yo M with PMHx of HTN and CAD who presented with choking and an unwitnessed syncopal episode. ED workup was remarkable for an EKG showing bradycardia, and patient was admitted for further syncopal workup. EPISODE OF CHOKING 2/2 SCHATZKI RING - Continue aspiration precautions - Soft diet - EGD Per GI's Note: - Dysphagia due to Schatzki ring which was dilated. 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 or carcinoid and may need EUS - Duodenitis - Poor dentition -FU outpatient GI UNWITNESSED SYNCOPE VS MECHANICAL FALL: R/O BRADYCARDIA 2/2 DEHYDRATION, MEDICATION INDUCED, CARDIOGENIC VS NEUROGENIC - Cardiology consulted: Continue with recs - Neurology consulted: Continue w/ recs -1. Seizure precautions. -2. Fall precautions. -3. Check orthostatics every shift. - Continue Memantine 5mg BID - Home VNS services DOCUMENTED ORTHOSTATIC HYPOTENSION -IVF @ 75 -Fall Precautions PHYSICAL THERAPY -Per PT: Mobility improving HYPERTENSION -c/w Norvasc 10mg -c/w Lisinopril 40mg -c/w Metoprolol 25mg FEN - No standing fluids - Replete lytes PRN - Soft diet PPX - DVT: lovenox 40mg sq - GI: Protonix 40mg BID Dispo: Ptn is ready for DC Visit type - Emergency Visit Emergency Visit: No - New Patient This patient is new to me today: No - Critical Care Critical Care patient: No - Discharge Referral Referred to [facility] No - Medication Review Med list reviewed for High Risk Meds patients 65 and older: Yes ATTENDING PHYSICIAN STATEMENT I saw and evaluated the patient. I reviewed the resident's note and discussed the case with the resident. I agree with the resident's findings and plan as documented. SUBJECTIVE: OBJECTIVE: ASSESSMENT AND PLAN:
[2019-12-27 12:09] VITALS: BP 150/77; TEMP 97.7
--- NOTE | 2019-12-27 14:11 | PN ---
Teaching Attending Note Name of Resident: Albert Rivero ATTENDING PHYSICIAN STATEMENT I saw and evaluated the patient. I reviewed the resident's note and discussed the case with the resident. I agree with the resident's findings and plan as documented. SUBJECTIVE: no complaints , no events OBJECTIVE: NAD, awake, alert, cooperative CV: RRR, 3/6 SM At RUSB , no radiation to carotids. Lungs: CTAB. Ext: No edema , no erythema on upper or lower extremities. ASSESSMENT AND PLAN: pt was d/c yesterday evening, but VNS could nto be arranged. left today. No change in plan which was d/w his family by team yesterday
--- NOTE | 2020-01-01 16:40 | PATH ---
Surgical Pathology Report Patient Name: [facility]. Rec. #: [id number] /Age/Gender: 1935 (Age: 84) / M Account: [id number] Location: 4 W TELEMETRY U Taken: 12/26/2019 Received: 12/29/2019 Reported: 01/01/2020 Physicians: Dino Murillo M.D. Specimen(s) Received A: SCHATZKI RING B: BULB AND SECOND PORTION OF DUODENUM C: ANTRAL NODULE Clinical History Dysphagia Postoperative diagnosis: Schatzki's ring, GERD, hiatal hernia, antral nodule, duodenitis Final Diagnosis A. SCHATZKI'S RING, BIOPSY: ESOPHAGOGASTRIC JUNCTIONAL (SQUAMOCOLUMNAR) MUCOSA SHOWING FEATURES OF REFLUX ESOPHAGITIS WITH MODERATE CHRONIC INFLAMMATION AND FOCAL INTESTINAL METAPLASIA. NEGATIVE FOR DYSPLASIA. B. BULB AND SECOND PORTION OF DUODENUM, BIOPSY: MODERATE CHRONIC DUODENITIS. C. 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 IMMUNOSTAIN IS NEGATIVE FOR H. PYLORI ORGANISMS. Electronically Signed Mamie Travis M.D. Gross Description A. Received in formalin, labeled "biopsy Schatzki's ring" are 3 hunt, irregular portions of soft tissue ranging from 0.2-0.4 cm. in greatest dimension. The specimens are submitted in toto in one cassette. B. Received in formalin, labeled "biopsy bulb and second portion of duodenum" are 4 hunt, irregular portions of soft tissue ranging from 0.2-0.4 cm. in greatest dimension. The specimens are submitted in toto in one cassette. C. Received in formalin, labeled "biopsy antral nodule" is a hunt, irregular portion of soft tissue measuring 0.5 cm. in greatest dimension. The specimen is submitted in toto in one cassette. 12/29/2019 saudi12/29/2019
== END 2019-12-27 13:20 | disposition home health service (06) | DRG 392 ==
LOC: JER 13:44 → JERBED 19:38 → OBSVTOIN 23:29 → J4W 12-23 14:26
PROVIDERS: ADMIT Internal Medicine; ATTEND Internal Medicine
PROC: 0DB48ZX Excision of Esophagogastric Junction, Via Natural or Artificial Opening Endoscopic, Diagnostic (ICD-10-PCS; 2019-12-26)
PROC: 0DB68ZX Excision of Stomach, Via Natural or Artificial Opening Endoscopic, Diagnostic (ICD-10-PCS; 2019-12-26)
PROC: 0D758ZZ Dilation of Esophagus, Via Natural or Artificial Opening Endoscopic (ICD-10-PCS; principal; 2019-12-26 14:00)
DX: K22.2 Esophageal obstruction (principal); I95.1 Orthostatic hypotension; E83.39 Other disorders of phosphorus metabolism; I25.10 Atherosclerotic heart disease of native coronary artery without angina pectoris; F17.210 Nicotine dependence, cigarettes, uncomplicated; R13.10 Dysphagia, unspecified; E66.9 Obesity, unspecified; Z68.30 Body mass index [BMI] 30.0-30.9, adult; R00.1 Bradycardia, unspecified; I10 Essential (primary) hypertension; E86.0 Dehydration; E78.5 Hyperlipidemia, unspecified; R09.89 Other specified symptoms and signs involving the circulatory and respiratory systems; Z95.5 Presence of coronary angioplasty implant and graft; R91.1 Solitary pulmonary nodule; I77.819 Aortic ectasia, unspecified site; J39.8 Other specified diseases of upper respiratory tract; K44.9 Diaphragmatic hernia without obstruction or gangrene; K29.80 Duodenitis without bleeding; K21.9 Gastro-esophageal reflux disease without esophagitis; K31.7 Polyp of stomach and duodenum; F09 Unspecified mental disorder due to known physiological condition
CPT/HCPCS: 36415; 36600; 70450-TC; 70490-TC; 71045-TC-FY; 71250-TC; 74220-TC-FY; 74230-TC-FY; 80048; 80053; 81003; 82550; 82553; 82803; 83605; 83735; 84100; 84484; 85025; 85610; 85730; 86850; 86900; 86901; 87086; 88305-TC; 92611-GN; 93005; 93010; 93880-TC; 97116-GP; 97161-GP; 99285-25; G0378; U0003

== ENCOUNTER 2022-04-17 16:30 | Emergency (ER) | payer OTHER ==
[2022-04-17 17:02] VITALS: BP 129/73; PULSE 69; RESP 18; TEMP 97.9; BMI 31.0
== END 2022-04-17 19:30 | disposition home or self-care (01) ==
LOC: JERFT 16:30
DX: M25.561 Pain in right knee (principal)
CPT/HCPCS: 73562-TC-RT-FY; 99283-25

== ENCOUNTER 2022-08-14 18:38 | Emergency (ER) | payer OTHER ==
[2022-08-14 18:54] VITALS: RESP 18; TEMP 98; BMI 30.7
[2022-08-14] MEDS ORDERED: ACETAMINOPHEN 1000 MG/100 ML BAG IVPB ONE (19:50)
[2022-08-14] MEDS ORDERED: ACETAMINOPHEN INJECTION 100 ML IVPB ONE (19:59)
[2022-08-14 20:30] VITALS: BP 147/60; PULSE 50
[2022-08-14 20:51] LABS: INR 1.15 (0.83-1.09); PROTHROMBIN TIME (PATIENT) 13.3 SEC (9.7-13.0)
[2022-08-14 20:54] LABS: ACTIVATED PTT 28.1 SECONDS (25.2-36.5)
[2022-08-14 21:28] LABS: BASO % 0.5 % (0-2.0); EOS % 3.3 % (0-4.5); HEMATOCRIT 42.3 % (35.4-49); HEMOGLOBIN 14.4 GM/dL (11.7-16.9); LYMPH % 28.8 % (8-40); MCH 29.4 pg (25.7-33.7); MCHC 34.1 g/dl (32.0-35.9); MEAN CELL VOLUME 86.2 fl (80-96); MEAN PLT VOLUME 9.8 fl (7.5-11.1); NEUT % 58.4 % (42.8-82.8); PLATELET COUNT 201 10^3/uL (134-434); RBC 4.91 M/mm3 (4.00-5.60); RDW 15.1 % (11.9-15.9); WHITE BLOOD COUNT 8.7 K/mm3 (4.0-10.0)
[2022-08-14 21:53] LABS: PH,URINE 6.5 (5.0-8.0); URINE APPEARANCE CLEAR; URINE BILIRUBIN NEGATIVE (NEGATIVE); URINE COLOR YELLOW; URINE GLUCOSE (UA) NEGATIVE (NEGATIVE); URINE KETONE NEGATIVE (NEGATIVE); URINE LEUK ESTERASE NEGATIVE (NEGATIVE); URINE NITRITE NEGATIVE (NEGATIVE); URINE PROTEIN NEGATIVE (NEGATIVE); URINE UROBILINOGEN 0.2 mg/dL (0.2-1.0)
[2022-08-14 22:25] LABS: POTASSIUM 4.3 mmol/L (3.5-5.1)
[2022-08-14 22:29] LABS: CALCIUM 10.3 mg/dL (8.5-10.1)
[2022-08-14 22:30] LABS: ALBUMIN 4.2 g/dl (3.4-5.0); MAGNESIUM 2.3 mg/dL (1.8-2.4)
[2022-08-14 22:35] LABS: BILIRUBIN,TOTAL 0.7 mg/dL (0.2-1); TOT PROT 7.8 g/dl (6.4-8.2)
== END 2022-08-14 23:41 | disposition home or self-care (01) ==
LOC: JER 18:38
PROC: 3E033NZ Introduction of Analgesics, Hypnotics, Sedatives into Peripheral Vein, Percutaneous Approach (ICD-10-PCS; principal; 2022-08-14)
DX: M25.532 Pain in left wrist (principal); W18.30XA Fall on same level, unspecified, initial encounter; Z20.822 Contact with and (suspected) exposure to COVID-19
CPT/HCPCS: 0241U-QW; 36415; 70450-TC; 71045-TC-FY; 71250-TC; 72125-TC; 73110-TC-LT-FY; 73130-TC-LT-FY; 80053; 81003; 82550; 83735; 84443; 84484; 85025; 85610; 85730; 86850; 86900; 86901; 87086; 93005; 93010; 96374; 99285-25